=== PATIENT | female | born 1960 | race Caucasian/White ===

== ENCOUNTER 2016-07-01 03:09 | Inpatient (IN) | payer MEDICARE, OTHER ==
[~2016-07-01] VITALS: Ht 177.8 cm; Wt 269.9 kg
[~2016-07-01 03:09] MED LIST: BACLOFEN20 MG PO; BACTRIM DS1 TAB PO; CIPRO500 MG PO; CLEOCIN HCL300 MG PO; CLINDAMYCIN HC300 MG PO; COL250 PO; COLACE100 MG PO; DIF100 PO; FLONS; LAC PO; LANTUS SOLOS100 U/M1 SC; LASIX40 MG PO; LEV500PM IV; LEVAQUIN750 MG PO; LEVEMIR100 U/M1 SQ; MAC100 PO; METOCLOPRAMIDE10 MG PO; MOTRIN800 MG PO; MSC30 PO; NAPROXEN DELAY500 M1 PO; NORCO1 TA1 PO; NORCO1 TA2 PO; NOVI SC; OXYC PO; PRAVACHOL20 MG PO; PROVENTIL0.09 MG/A1; PROVENTIL0.09 MG/A1 INH; ROXICET1 TA1 PO; SOMA350 MG PO; TOPROL XL25 MG PO; TRAMADOL HCL50 MG PO; VASOTEC20 MG PO; XANAX0.5 MG PO; ZESTRIL20 MG PO; ZOCOR40 MG PO; [UNRECOGNIZED DRUG - OTHER] EXT
[2016-07-01 03:46] LABS: BASOPHIL % 1.4 % (0-2); PLATELET COUNT 278 x10^3mcL (130-400)
[2016-07-01 03:48] LABS: RED CELL DISTRIBUTION WIDTH 14.6 % (11.5-14.5)
[2016-07-01 04:01] LABS: CK-MB < 0.5 ng/mL (0-3.6); CREATINE KINASE 24 U/L (26-192)
[2016-07-01] MEDS ORDERED: TOPROL XL25 MG PO (04:04)
[2016-07-01] MEDS ORDERED: ZESTRIL20 MG PO (04:04)
[2016-07-01] MEDS ORDERED: LASIX40 MG PO (04:04)
[2016-07-01] MEDS ORDERED: PRAVACHOL20 MG PO (04:04)
[2016-07-01] MEDS ORDERED: POTASSIUM CHLO20 ME1 PO (04:05)
[2016-07-01] MEDS ORDERED: NAPROXEN500 MG PO (04:05)
[2016-07-01] MEDS ORDERED: TRAMADOL HCL50 MG PO (04:06)
[2016-07-01] MEDS ORDERED: TRAZODONE50 M1 PO (04:07)
[2016-07-01] MEDS ORDERED: BACLOFEN20 MG PO (04:07)
[2016-07-01] MEDS ORDERED: FLOVENT DI50 MCG/Ac1 IH (04:07)
[2016-07-01] MEDS ORDERED: LANTUS SOLOS100 U/M1 SQ (04:08)
[2016-07-01] MEDS ORDERED: NOVOLOG100 U/ML SC (04:08)
[2016-07-01] MEDS ORDERED: ALBUTEROL0.63 MG/3 NEB (04:08)
[2016-07-01 04:12] LABS: CALCIUM 8.5 mg/dL (8.5-10.1); CARBON DIOXIDE 27.3 mmol/L (21-32); CREATININE SERUM 1.4 mg/dL (0.6-1.0); POTASSIUM SERUM 4.1 mmol/L (3.5-5.1)
[2016-07-01 04:17] LABS: BILIRUBIN TOTAL 1.2 mg/dL (0.20-1.00); TOTAL PROTEIN, SERUM 7.8 g/dL (6.4-8.2)
[2016-07-01 04:19] LABS: ALBUMIN 2.3 g/dL (3.4-5.0)
[2016-07-01 06:03] LABS: CHOLESTEROL/HDL RATIO 3.2
[2016-07-01 06:07] LABS: FREE T4 1.4 ng/dL (0.76-1.46); FREE THYROXINE INDEX 2.5 ug/dL (1.4-4.5); T4(THYROXINE) 7.3 ug/dL (4.7-13.3)
[2016-07-01 06:09] LABS: T3 TOTAL 0.82 ng/mL
[2016-07-01 09:00] VITALS: BP 118/49
[2016-07-01 09:49] VITALS: BP 118/49
[2016-07-01 09:52] VITALS: BP 118/49
[2016-07-01 13:27] VITALS: BP 106/43
[2016-07-01 14:25] LABS: UA SPECIFIC GRAVITY >=1.030 (1.005-1.035); microscopic required? YES; urine erythrocyte TRACE (NEGATIVE)
[2016-07-01 14:40] LABS: AMPHETAMINE QUAL UR NONE DETECTED (NEG <=1000)
[2016-07-01 16:40] VITALS: BP 104/48
[2016-07-01 22:16] VITALS: BP 95/48
[2016-07-02 06:13] VITALS: BP 105/44
[2016-07-02 08:40] VITALS: BP 101/36
[2016-07-02 12:52] VITALS: BP 111/35
[2016-07-02 15:20] LABS: BASOPHIL % 0.3 % (0-2); PLATELET COUNT 230 x10^3mcL (130-400)
[2016-07-02 15:25] LABS: RED CELL DISTRIBUTION WIDTH 15.3 % (11.5-14.5)
[2016-07-02 15:33] LABS: CALCIUM 8.4 mg/dL (8.5-10.1); CARBON DIOXIDE 32.1 mmol/L (21-32); CREATININE SERUM 1.4 mg/dL (0.6-1.0); MAGNESIUM 1.8 mg/dL (1.8-2.4); PHOSPHOROUS 4.5 mg/dL (2.5-4.9); POTASSIUM SERUM 5.3 mmol/L (3.5-5.1)
[2016-07-02 16:58] VITALS: BP 111/63
[2016-07-02 20:49] VITALS: BP 101/51
[2016-07-03 05:47] VITALS: BP 120/49
[2016-07-03 06:07] LABS: BASOPHIL % 0.6 % (0-2); PLATELET COUNT 238 x10^3mcL (130-400)
[2016-07-03 06:17] LABS: CALCIUM 8.3 mg/dL (8.5-10.1); CARBON DIOXIDE 30.8 mmol/L (21-32); CREATININE SERUM 1.4 mg/dL (0.6-1.0); MAGNESIUM 1.8 mg/dL (1.8-2.4); PHOSPHOROUS 4.1 mg/dL (2.5-4.9); POTASSIUM SERUM 4.5 mmol/L (3.5-5.1)
[2016-07-03 07:03] LABS: RED CELL DISTRIBUTION WIDTH 15.2 % (11.5-14.5)
[2016-07-03 09:40] VITALS: BP 101/67
[2016-07-03 13:22] VITALS: BP 110/74
[2016-07-03 18:31] VITALS: BP 131/63
[2016-07-03 22:12] VITALS: BP 148/64
[2016-07-04 06:18] VITALS: BP 147/57
[2016-07-04 06:49] LABS: BASOPHIL % 0.6 % (0-2); PLATELET COUNT 245 x10^3mcL (130-400)
[2016-07-04 07:06] LABS: RED CELL DISTRIBUTION WIDTH 15.1 % (11.5-14.5)
[2016-07-04 07:09] LABS: CALCIUM 8.5 mg/dL (8.5-10.1); CREATININE SERUM 1.3 mg/dL (0.6-1.0); MAGNESIUM 1.9 mg/dL (1.8-2.4); PHOSPHOROUS 3.4 mg/dL (2.5-4.9); POTASSIUM SERUM 4.2 mmol/L (3.5-5.1)
[2016-07-04 18:08] VITALS: BP 149/60
[2016-07-04 22:20] VITALS: BP 135/68
[2016-07-05 06:16] VITALS: BP 113/68
[2016-07-05 06:21] LABS: BASOPHIL % 0.3 % (0-2); PLATELET COUNT 258 x10^3mcL (130-400)
[2016-07-05 06:30] LABS: RED CELL DISTRIBUTION WIDTH 14.9 % (11.5-14.5)
[2016-07-05 06:54] LABS: CALCIUM 9.1 mg/dL (8.5-10.1); CARBON DIOXIDE 31.8 mmol/L (21-32); CREATININE SERUM 1.1 mg/dL (0.6-1.0); POTASSIUM SERUM 4.1 mmol/L (3.5-5.1)
[2016-07-05 10:42] VITALS: BP 146/54
[2016-07-05 13:24] VITALS: BP 146/54
[2016-07-05 18:24] VITALS: BP 126/70
[2016-07-05 21:23] VITALS: BP 151/81
[2016-07-06 03:33] VITALS: BP 152/68
[2016-07-06 06:06] LABS: BASOPHIL % 0.5 % (0-2); PLATELET COUNT 243 x10^3mcL (130-400)
[2016-07-06 06:36] LABS: CALCIUM 9.2 mg/dL (8.5-10.1); CARBON DIOXIDE 33.8 mmol/L (21-32); CREATININE SERUM 1.2 mg/dL (0.6-1.0); MAGNESIUM 1.9 mg/dL (1.8-2.4); PHOSPHOROUS 3.6 mg/dL (2.5-4.9); POTASSIUM SERUM 4.3 mmol/L (3.5-5.1)
[2016-07-06 06:47] LABS: RED CELL DISTRIBUTION WIDTH 15.1 % (11.5-14.5)
[2016-07-06 08:44] VITALS: BP 110/57
[2016-07-06 13:06] VITALS: BP 157/69
[2016-07-06 16:38] VITALS: BP 166/77
[2016-07-06 22:22] VITALS: BP 157/64
[2016-07-07 06:17] LABS: BASOPHIL % 0.4 % (0-2); PLATELET COUNT 267 x10^3mcL (130-400)
[2016-07-07 06:31] LABS: CALCIUM 9.3 mg/dL (8.5-10.1); CARBON DIOXIDE 37.6 mmol/L (21-32); CREATININE SERUM 1.1 mg/dL (0.6-1.0); PHOSPHOROUS 3.6 mg/dL (2.5-4.9); POTASSIUM SERUM 4.2 mmol/L (3.5-5.1)
[2016-07-07 06:35] VITALS: BP 148/77
[2016-07-07 06:47] LABS: RED CELL DISTRIBUTION WIDTH 15.2 % (11.5-14.5)
[2016-07-07 10:00] VITALS: BP 151/63
[2016-07-07 19:00] VITALS: BP 150/63
[2016-07-07 21:35] VITALS: BP 147/64
[2016-07-08 05:54] VITALS: BP 123/42
[2016-07-08 10:57] VITALS: BP 106/43
[2016-07-08 14:36] VITALS: BP 155/67
[2016-07-08 16:18] VITALS: Ht 177.8 cm; Wt 269.9 kg
[2016-07-08 18:22] VITALS: BP 149/51
[2016-07-08 22:17] VITALS: BP 136/55
[2016-07-09 06:24] VITALS: BP 109/55
[2016-07-09 09:47] VITALS: BP 102/39
[2016-07-09 15:50] VITALS: BP 102/39
[2016-07-09] MEDS ORDERED: MYCP TOP (16:33)
[2016-07-09] MEDS ORDERED: VITC PO (16:34)
[2016-07-09] MEDS ORDERED: THERA TABS1 TAB PO (16:35)
[2016-07-09] MEDS ORDERED: HUMULIN R100 U/1 M1 SC (16:35)
[2016-07-09] MEDS ORDERED: LAC PO (16:37)
[2016-07-09] MEDS ORDERED: ARTOS OD (16:38)
[2016-07-09] MEDS ORDERED: PROT40I IV (16:38)
[2016-07-09] MEDS ORDERED: COL100 PO (16:38)
[2016-07-09] MEDS ORDERED: NOVAPLUS F0.05 MG/Ac (16:39)
[2016-07-09] MEDS ORDERED: DEXPF IV (16:39)
[2016-07-09] MEDS ORDERED: XAN25 PO (16:40)
[2016-07-09] MEDS ORDERED: BG FS (16:40)
[2016-07-09] MEDS ORDERED: ECO81 PO (16:42)
[2016-07-09] MEDS ORDERED: FERG PO (16:48)
[2016-07-09] MEDS ORDERED: HEP5I SC (16:48)
[2016-07-09] MEDS ORDERED: BACDS PO (16:50)
[2016-07-09] MEDS ORDERED: CLA10 PO (16:51)
[2016-07-09] MEDS ORDERED: ROC1PM IV (16:52)
[2016-07-09] MEDS ORDERED: IPRATROPIUM BROM3 M2 HHN ×2 (16:55)
== END 2016-07-09 17:44 | DRG 189 ==
LOC: ED 03:09 → MU 05:17 → DU 05:17 → MU 07-06 17:10
PROVIDERS: Emergency Medicine; Family Medicine; ADMIT Family Medicine
DX: J96.00 Acute respiratory failure, unspecified whether with hypoxia or hypercapnia (principal); N17.0 Acute kidney failure with tubular necrosis; E43 Unspecified severe protein-calorie malnutrition; E66.2 Morbid (severe) obesity with alveolar hypoventilation; Z68.45 Body mass index [BMI] 70 or greater, adult; K61.1 Rectal abscess; N39.0 Urinary tract infection, site not specified; B37.89 Other sites of candidiasis; D68.69 Other thrombophilia; I42.9 Cardiomyopathy, unspecified; L89.302 Pressure ulcer of unspecified buttock, stage 2; J45.909 Unspecified asthma, uncomplicated; G47.30 Sleep apnea, unspecified; E11.65 Type 2 diabetes mellitus with hyperglycemia; E11.51 Type 2 diabetes mellitus with diabetic peripheral angiopathy without gangrene; E66.01 Morbid (severe) obesity due to excess calories; I34.0 Nonrheumatic mitral (valve) insufficiency; I10 Essential (primary) hypertension; D64.9 Anemia, unspecified; Z74.01 Bed confinement status; Z79.4 Long term (current) use of insulin; Z22.322 Carrier or suspected carrier of Methicillin resistant Staphylococcus aureus
CPT/HCPCS: 36600; 80307; 82962; 83880; 84439; 97110-GP; 97530-GP; C9113; J0696; J1200; J1644; J1815; J1940; J1956; J2060; J2270; J2405; J2543; J3490; J7030; J7613; J7620; J7633; J7644; Q0092

== ENCOUNTER 2016-09-18 04:54 | Inpatient (IN) | payer MEDICARE, OTHER ==
[~2016-09-18] VITALS: Ht 177.8 cm; Wt 288.4 kg
[~2016-09-18 04:54] MED LIST changes: +ALBUTEROL0.63 MG/3 NEB; +ARTOS OD; +BACDS PO; +BG FS; +CLA10 PO; +COL100 PO; +DEXPF IV; +ECO81 PO; +FERG PO; +FLOVENT DI50 MCG/Ac1 IH; +HEP5I SC; +HUMULIN R100 U/1 M1 SC; +IPRATROPIUM BROM3 M2 HHN; +LANTUS SOLOS100 U/M1 SQ; +MYCP TOP; +NAPROXEN500 MG PO; +NOVAPLUS F0.05 MG/Ac; +NOVOLOG100 U/ML SC; +POTASSIUM CHLO20 ME1 PO; +PROT40I IV; +ROC1PM IV; +THERA TABS1 TAB PO; +TRAZODONE50 M1 PO; +VITC PO; +XAN25 PO
--- NOTE | 2016-09-18 05:00 | NUR ---
RECEIVED A 55 Y/O F BIB [facility] FOR GENERALIZED ILLNESS, FEVER, CHILLS AND NAUSEA. PATIENT REPORTS THAT SHE HAS BEEN FEELING SICK SINCE AUGUST. PATIENT WAS DIAGNOSED EARLIER IN THE YEAR WITH PNEUMONIA. PT PLACED IN CM, PULSE OX AND BP CUFF. PT HAS NON PRODUCTIVE COUGH. PER PATIENT " LAST TIME I FELT LIKE THIS, I WAS SEPTIC." PT REPORTS PAIN IN HER SHOULDERS, BACK AND NECK. PATIENT SKIN IS WARM TO TOUCH. PT PLACED IN 2 LITERS OXYGEN VIA NC. PENDING MSE. WILL CONTINUE TO MONITOR FOR SAFETY
--- NOTE | 2016-09-18 05:43 | NUR ---
LAB AND EKG AT THE BEDSIDE
[2016-09-18 06:10] LABS: CALCIUM 8.8 mg/dL (8.5-10.1); CARBON DIOXIDE 29.2 mmol/L (21-32); CREATININE SERUM 1.4 mg/dL (0.6-1.0); POTASSIUM SERUM 4.7 mmol/L (3.5-5.1)
[2016-09-18 06:14] LABS: BILIRUBIN TOTAL 0.64 mg/dL (0.20-1.00)
[2016-09-18 06:18] LABS: PLATELET COUNT 200 x10^3mcL (130-400); RED CELL DISTRIBUTION WIDTH 13.6 % (11.5-14.5)
[2016-09-18 06:19] LABS: BASOPHIL % 0 % (0-2)
[2016-09-18 06:26] LABS: CK-MB < 0.5 ng/mL (0-3.6); CREATINE KINASE 16 U/L (26-192)
--- NOTE | 2016-09-18 06:28 | NUR ---
PT NOTIFIED THAT SHE STILL HAS A HIGH TEMP. OFFERED COOLING MEASURES, PT REFUSED. WILL CONTINUE TO MONITOR FOR SAFETY
--- NOTE | 2016-09-18 07:07 | NUR ---
RECEIVED REPORT FROM JOSE ISSUE CLERK KAILASH
--- NOTE | 2016-09-18 07:07 | NUR ---
REPORT GIVEN TO ALEX LINDER
[2016-09-18 07:09] LABS: microscopic required? YES; urine erythrocyte 1+ (NEGATIVE)
--- NOTE | 2016-09-18 07:11 | NUR ---
DR AMBROSE AT BEDSIDE FOR EVAL
--- NOTE | 2016-09-18 08:49 | NUR ---
ATTEMPTED TO GIVE REPORT TO JACKY. SHE SAID SHE IS EATING BREAKFAST AND WILL CALL ME BACK IN 10 MIN
--- NOTE | 2016-09-18 09:20 | NUR ---
REPORT GIVEN TO JACKY LINDER
--- NOTE | 2016-09-18 09:22 | NUR ---
NOT ABLE TO TRANSFER PATIENT DUE TO WAITING ON BERIATRIC BED
--- NOTE | 2016-09-18 10:25 | NUR ---
patient sleeping at this time. awaiting bed to be delivered. stable vitals and will continue to monitor
[2016-09-18 11:14] LABS: AMPHETAMINE QUAL UR NONE DETECTED (NEG <=1000)
[2016-09-18 11:21] LABS: BILIRUBIN DIRECT 0.21 mg/dL (0.0-0.2); BILIRUBIN TOTAL 0.62 mg/dL (0.20-1.00); MAGNESIUM 1.5 mg/dL (1.8-2.4); PHOSPHOROUS 2.8 mg/dL (2.5-4.9); TOTAL PROTEIN, SERUM 7.9 g/dL (6.4-8.2)
[2016-09-18 11:22] LABS: CHOLESTEROL/HDL RATIO 2.5
[2016-09-18 11:35] LABS: FREE T4 1.16 ng/dL (0.76-1.46); T4(THYROXINE) 8.3 ug/dL (4.7-13.3)
--- NOTE | 2016-09-18 11:36 | NUR ---
CALLED TELE FLOOR. BED STILL NOT DELIVERED. PT AWARE AND VERBALIZES UNDERSTANDING. STABLE VITALS AND WILL CONTINUE TO MONITOR
[2016-09-18 11:46] LABS: T3 TOTAL 0.87 ng/mL
--- NOTE | 2016-09-18 12:35 | NUR ---
BERIATRIC BED HERE AND IS BEING SET UP IN . WILL TAKE PT UPSTAIRS
[2016-09-18 13:30] VITALS: BP 85/38
[2016-09-18 13:35] VITALS: BP 85/38
--- NOTE | 2016-09-18 13:57 | NUR ---
RECEIVED PATIENT FROM ED VIA GUERNEY, PATIENT TRANSFERED TO BARIATRIC BED VIA NADJA LIFT, PATIENT ALERT AND ORIENTED, TELE # 17 ST, PATIENT ON 2L NC, SANTANA CATH DRAINING YELLOW URINE TO GRAVITY, C/O PAIN TO BACK AND EXTREMITIES WILL MEDICATE ORDERED, IV ACCESS TO LEFT WRIST WNL, PHYSICIAN NOTIFIED OF SEPSIS PROTOCOL, ORIENTED PATIENT TO ROOM AND SURROUNDINGS, BED IN LOW POSITION, BED RAILS UP X 2, CALL LIGHT WITHIN REACH, WILL ENDORSE CARE TO PRIMARY NURSE JACKY LINDER
--- NOTE | 2016-09-18 14:00 | NUR ---
PT RESTING IN BED COMFORTYABLY,SLEEPING. DENIES PAIN THIS TIME. WILL MONITOR.
--- NOTE | 2016-09-18 14:30 | NUR ---
AWARE ABOUT BP 85/38 WITH MAP 56. ALSO INFORMED HIM ABOUT MG=1.5 ABD A1C=6.7,FHORXR=397. NO NEW ORDER RECEIVED YET.
--- NOTE | 2016-09-18 17:10 | NUR ---
CALLED AND INFORMED ABOUT BLOOD CULTURE RESULT. NO NEW ORDER RECEIVED.
--- NOTE | 2016-09-18 17:20 | NUR ---
HEPARIN DRIP STARTED PER ORDER 1800 UNIT/HR AND LOADING DOSE 11413. VERIFIED THE LOADING DOSE WITH PHARMACY, AND CHARGE NURSE BEFORE START.PTT ORDERED FOR 0.
[2016-09-18 18:00] VITALS: BP 89/36
--- NOTE | 2016-09-18 18:15 | NUR ---
BOLUS STARTED FOR BP 89/39 WITH MAP 63. 15 MIN AFTER BOLUS RECHECKED THE BP 119/39 WITH MAP 71.PT IS STABLE. WILL MONITOR.
[2016-09-18 18:27] VITALS: BP 119/39
[2016-09-18 19:00] VITALS: BP 136/47
--- NOTE | 2016-09-18 19:00 | NUR ---
BOLUS IVF NS STILL INFUSING. RECHECKED BP 136/47 WITH MAP 83. PT IS STABLE. EDUCATED PT NEED FOR SUPTUM C/S AND CUP PROVIDED. GAVE REPORT TO NEXT SHIFT NURSE.
--- NOTE | 2016-09-18 19:30 | NUR ---
PT IS A/O X4, VERBAL RESPONSIVE, LUNG SOUND CONGEST ELDON UPPER AND DIM ELDON BASE PT IS ON 2L/MIN O2 VIA NC. PO2 95%, PT IS ON TELE 17, NSR, HR 92, DENY ANY CHEST PAIN OR DISCOMFORT, BOWEL SOUND PRESENT ALL 4 QUADRANTS, NO DISTENTION. PEDAL PULSE PRESENT BOTH FEET, NON PITTING EDEMA BLE. FOELY CATH IS IN PLACE, IV AT LEFT FA, PT CONTINUE ON HEPRIN DRIP AT 1800 U/HR. IV SIDE DRESSING INTACT, NO INFILTRATION. PT HAD WOUND AT ELDON AXILLA DIANE AND COCCYX IS COVERD WITH DRESSING. ALL ADLS ASSIST, ALL NEED MET, CALL LIGHT IN REACH, WILL CONTINUE TO MONITOR.
--- NOTE | 2016-09-18 20:18 | NUR ---
SPUTUM CULUTURE OBTAIN AND SENT TO LAB.
[2016-09-18 20:55] VITALS: BP 124/103
[2016-09-19] VITALS (8 sets, daily range): BP systolic 90–127; BP diastolic 30–99
--- NOTE | 2016-09-19 01:01 | NUR ---
PTT IS 91.1.HOLD INFUSION FOR 1 HOUR AND WILL RESUME THE HEP DRIP AT 2 AM AND REDUCE TO 1000 U/HR. AND NEXT PTT WILL BE AT 6 AM.
--- NOTE | 2016-09-19 02:05 | NUR ---
RESUME THE HEPARIN DRIP AND DECREASE HEP DRIP TO 1000 U/HR. NEXT PTT 0600
--- NOTE | 2016-09-19 06:01 | NUR ---
PT IS AWAKE, VERBAL REPSONSIVE, SWITCH BIPAP TO NASAL CANNULA O2 2L/MIN. PT HAS NO RESPIRATORY DISTRESS, C/O HEADACHE 5/10, NORCO IS GIVEN, PT REFUSED TO CHANGE AT THIS TIME, IV AT RIGHT FA, AND LEFT WRIST IN PATENT AND DRESSING INTACT. ALL NEED MET, CALL LIGHT IN REACH, WILL CONTINUE TO MONITOR.
--- NOTE | 2016-09-19 06:06 | NUR ---
PT HAS TEMP 99.5, BUT PT REFUSED TO USE COOLING MEASURE AT THIS TIME, REMOVED THE BLANKET. WILL CONTINUE TO MONITOR THE PT.
[2016-09-19 06:20] LABS: PLATELET COUNT 180 x10^3mcL (130-400); RED CELL DISTRIBUTION WIDTH 14.3 % (11.5-14.5)
[2016-09-19 06:30] LABS: BILIRUBIN TOTAL 1.2 mg/dL (0.20-1.00); CALCIUM 8.3 mg/dL (8.5-10.1); CARBON DIOXIDE 21.5 mmol/L (21-32); CREATININE SERUM 2.2 mg/dL (0.6-1.0); POTASSIUM SERUM 4.8 mmol/L (3.5-5.1); TOTAL PROTEIN, SERUM 6.3 g/dL (6.4-8.2)
[2016-09-19 06:36] LABS: ALBUMIN 2.3 g/dL (3.4-5.0)
--- NOTE | 2016-09-19 06:47 | NUR ---
PTT 41.2, BOLUS HEPARIN 33758 U, AND INCREAES DRIP RATE TO 1500 U/HR. NEXT PTT AT 1100
[2016-09-19 06:48] LABS: BASOPHIL % 0 % (0-2)
--- NOTE | 2016-09-19 07:25 | NUR ---
RECEIVED PATIENT AWAKE/ALERT IN BED, NO COMPLAINTS, ASKING FOR ICE CHIPS. INFORM PATIENT DOCTOR ORDER LUNG SCAN REQUIRED NPO. POC UPDATED. CALL LIGHT WITHIN REACH.
--- NOTE | 2016-09-19 09:43 | NUR ---
PATIENT RESTING IN BED NO COMPLAINTS, ALL DUE MEDS GIVEN, HEPARIN GTTS @ 1500 UNITS/HR TO RFA, LAVAQUIN IVPB GIVEN. DR PINK SEEN APTIENT AT THIS TIME, INFORM RN WILL INCREASE IVF NS TO 250ML/HR; MONITOR EDEMA.
--- NOTE | 2016-09-19 11:00 | NUR ---
MEDICATED FOR C/O NAUSEA WITH ZOFRAN 4MG IVP, NEEDS ANTICIPATED. STUDENT NURSE DOING ACCU-CHECK ON PATIENT. CALL LIGHT WITHIN REACH.
--- NOTE | 2016-09-19 11:22 | NUR ---
PAGE DR. HARDY FOR PATIENT REQUEST FOR GAS PAIN, BS 176 COVER 3 UNITS HUMULIN SQ BY STUDENT NURSE WITH INSTRUCTOR.
--- NOTE | 2016-09-19 11:50 | NUR ---
PATIENT LAYING IN BED TECH AT BEDSIDE DOING ULTRASOUND TO LEGS, MYLICON 80MG PO GIVEN FOR GAS PAIN, REPLACE NEW HEPARIN BAG CONTINUOUS AT 1500 UNITS/HR; REPOSITIONED UP IN BED WITH MAX 4 STAFFS HELPING. CALL LIGHT WITHIN REACH.
--- NOTE | 2016-09-19 12:30 | NUR ---
PATIENT LAYING IN BED NO ACUTE DISTRESS NOTED, TECH AT BEDSIDE EXPLAINED TO PATIENT WILL DO LUNG SCAN.
--- NOTE | 2016-09-19 12:54 | NUR ---
LAB CALL FOR PTT 60.8 PER HEPARIN PROTOCOL NO CHANGE; ORDER NEXT PTT @ 1655.
--- NOTE | 2016-09-19 14:03 | NUR ---
PATIENT LAYING IN BED C/O GAS PAIN 10/20. NORCO 1 TAB PO GIVEN PER PATIENT REQUEST. PATIENT ALREADY HAVE HER MORNING DOSE OF PRILOSEC AND MYLCON FOR GAS INSTRUCT TO TURN FREQUENT TO FACILIATE BOWEL TO MOVE. LUNG SCAN STILL IN PROGRESS. PER SEPSIS PROTOCOL 5TH LITER OF 8 LITERS NS STARTED AT RATED 250ML/HR, CALL LIGHT WITHIN REACH.
--- NOTE | 2016-09-19 15:15 | NUR ---
PT NOTED WITH BP 90/32, MAP 53. RECHECKED BP 127/99 MAP 106. NOTED SANTANA WITH ONLY APPROXIMATELY 400ML CLARK URINE. DR BELL AND DR SANCHEZ MADE AWARE, WITH NEW ORDER FOR 1L NS BOLUS, AND THEN RESUME NS AT 250ML/HR. NS BOLUS STARTED ORDERED.
--- NOTE | 2016-09-19 16:30 | NUR ---
PATIENT AWAKE/ALERT IN BED HOB AT 45 DEGREE, AFTER 1 LITER BOLUS BP 95/35, MAP 55; ASYMPTOMATIC. MILD DISTRESS NOTED DUE TO ABDOMINAL CRAMPING OFF AND ON; CONTINUOUS IVF OF NS @ 250ML/HR ORDERED. BS 149 NO COVERAGE NEEDED.
--- NOTE | 2016-09-19 17:00 | NUR ---
DR. HARDY AT BEDSIDE INFORM PATIENT OF VQ SCAN LOW POSSIBILITY FOR PE, HEPARIN GTTS D/C ORDER. INFORM PATIENT HEPARIN GTTS IS STOP.
--- NOTE | 2016-09-19 18:20 | NUR ---
PATIENT EATING HER DINNER AT THIS TIME, HOT TEA GIVEN PER REQUEST, STATES LACTOSE INTOLERANCE CAN'T DRINK MILK. NEEDS ANTICIPATED.
--- NOTE | 2016-09-19 20:00 | NUR ---
PT ALERT AND AWAKE RESTING IN BED. VERBAL WITH CLEAR SPEECH. ON O2 2L VIA NC. DENIES ANY SOB. LUNGS DIMINISHED TO BILATERAL BASES. NO S/S OF RESPIRATORY DISTRESS NOTED. ON TELE 17, NSR. ABD SOFT AND ROUND. BOWEL SOUNDS PRESENT. PT C/O GAS PAIN. MYLICON 80 MG CHEWABLE TABLET GIVEN. SKIN WARM AND DRY. IVS TO LEFT WRIST AND RIGHT FA PATENT AND INTACT. IV NS INFUSING WELL TO LEFT WRIST. NO S/S OF INFECTION NOTED. NOTED WITH NONPITTING EDEMA TO BLE. PULSES PALPABLE. CALL LIGHT WITHIN REACH. WILL CONTINUE TO MONITOR.
--- NOTE | 2016-09-19 21:00 | NUR ---
NOTED PT'S BS 130. HAS LEVEMIR DOSE 30 UNITS HS. PT HAS POOR APPETITE. LEVEMIR DOSE NOT GIVEN. DR. BUTTS UPDATED AND AWARE.
--- NOTE | 2016-09-19 21:30 | NUR ---
UPDATED RE-PATIENT LATEST BP OF 102/76,ALSO INFOFORMED HIM RE-LOW URINE OUTPUT OF 100 CC IN THE SANTANA BAG AT THIS TIME,NO NEW ORDER.
--- NOTE | 2016-09-19 23:10 | NUR ---
BLADDER SCAN PERFORMED AND NOTED >20 ML VOLUME. F/C DRAINED 200 ML CLARK URINE AT THIS TIME. DR. VELA UPDATED AND AWARE.
--- NOTE | 2016-09-20 00:32 | NUR ---
PT RESTING IN BED. ALERT AND AWAKE WATCHING TV. BIPAP IN PLACE. NO S/S OF RESPIRATORY DISTRESS NOTED. BREATHING EQUAL AND UNLABORED. IV PATENT AND INFUSING WELL. NO S/S OF DISTRESS NOTED. CALL LIGHT WITHIN REACH. WILL CONTINUE TO MONITOR.
[2016-09-20 01:45] VITALS: BP 117/70
--- NOTE | 2016-09-20 02:04 | NUR ---
PT'S BP AFTER 7TH LITER BOLUS 117/70, MAP 85. BREATHING EQUAL AND UNLABORED. NO S/S OF RESPIRATORY DISTRESS NOTED. NO ADVERSE REACTIONS NOTED FROM IV CLEOCIN. IV PATENT AND INFUSING WELL. PT C/O FEELING ANXIOUS AND NOT ABLE TO SLEEP. DR. VELA UPDATED AND AWARE OF PT'S CURRENT BP AND ANXIETY. AWAITING NEW ORDERS.
--- NOTE | 2016-09-20 04:36 | NUR ---
PT RESTING IN BED WITH EYES CLOSED. BIPAP IN PLACE. NO S/S OF RESPIRATORY DISTRESS NOTED. IV PATENT AND INFUSING WELL. NO S/S OF DISTRESS OR DISCOMFORT NOTED. RESTING COMFORTABLY WITH RELAXED FACIAL FEATURES. CALL LIGHT WITHIN REACH. WILL CONTINUE TO MONITOR.
[2016-09-20 06:30] VITALS: BP 112/64
[2016-09-20 06:30] LABS: CALCIUM 7.9 mg/dL (8.5-10.1); CARBON DIOXIDE 24.5 mmol/L (21-32); CREATININE SERUM 3.1 mg/dL (0.6-1.0); POTASSIUM SERUM 4.5 mmol/L (3.5-5.1)
--- NOTE | 2016-09-20 06:30 | NUR ---
PT SLEPT WELL THROUGHOUT THE NIGHT. BREATHING EQUAL AND UNLABORED. NO S/S OF RESPIRATORY DISTRESS NOTED. IV PATENT AND INFUSING WELL. AFTER 8TH LITER BOLUS, VS: T 97.4, BP 112/64, MAP 80, P 75, RR 17. F/C DRAINED 250 ML TOTAL CLARK COLORED URINE. NO S/S OF DISTRESS NOTED. CALL LIGHT WITHIN REACH. WILL CONTINUE TO MONITOR.
--- NOTE | 2016-09-20 07:42 | NUR ---
PT RECEIVED DURING CHANGE OF SHIFT, A/OX4, TELE 17, NSR, DENIES CHEST PAIN, EDEMA NOTED BLE, PULSES PRESENT, LUNGS DIM IN BLL, DENIES SOB, BIPAP IN USED, BREATHING EVEN AND UNLABORED, BOWEL SOUNDS ACITVE, LBM 09/18/16, SANTANA IN PLACE, CLARK OUTPUT REPORTED, GENERALIZED WEAKNESS, REDNESS TO ELDON AXILLARY, BLE REDNESS, C/O ABD PAIN 09/19 MEDICATED PER EMAR, IV TO RFA AND LT WRIST, INFUSING NS AT 250ML/HR, CALL LIGHT WITHIN REACH, WILL CONTINUE TO MONITOR.
[2016-09-20 07:47] LABS: BASOPHIL % 0.1 % (0-2); PLATELET COUNT 157 x10^3mcL (130-400); RED CELL DISTRIBUTION WIDTH 14.5 % (11.5-14.5)
--- NOTE | 2016-09-20 09:05 | NUR ---
PT DENIES SOB, BIPAP IN USE, STATES PAIN MEDICATION EFFECTIVE, CALL LIGHT WITHIN REACH, MED EDUCATION GIVEN, WILL CONTINUE TO MONITOR.
--- NOTE | 2016-09-20 10:04 | NUR ---
DR. HARDY ASSESSED PT AT BEDSIDE, PT CURRENTLY HAS NO COMPLAINTS, CALL LIGHT WITHIN REACH, WILL CONTINUE TO MONITOR.
--- NOTE | 2016-09-20 11:27 | NUR ---
PT DENIES SOB, DENIES PAIN AT THIS TIME, BS 181 WILL COVER PER EMAR, CALL LIGHT WITHIN REACH, WILL CONTINUE TO MONITOR.
--- NOTE | 2016-09-20 12:21 | NUR ---
PT DENIES SOB, DENIES PAIN, MEDICATED FOR BS 181, CALL LIGHT WITHIN REACH, WILL CONTINUE TO MONITOR.
--- NOTE | 2016-09-20 13:57 | NUR ---
PT WATCHING TV, NO COMPLAINTS AT THIS TIME, CALL LIGHT WITHIN REACH, WILL CONTINUE TO MONITOR.
[2016-09-20 14:00] VITALS: BP 90/68
--- NOTE | 2016-09-20 14:13 | NUR ---
BOX TENDER AT BEDSIDE ASSISTING WITH ADL'S, NO COMPLAINTS AT THIS TIME, CALL LIGHT WITHIN REACH, WILL CONTINUE TO MONITOR.
--- NOTE | 2016-09-20 15:19 | NUR ---
PT DENIES SOB, C/O ABD PAIN 10/20, MEDICATED PER EMAR, CALL LIGHT WITHIN REACH, WILL CONTINUE TO MONITOR.
--- NOTE | 2016-09-20 16:43 | NUR ---
PT STATES PAIN MEDICATION EFFECTIVE, DENIES SOB, CALL LIGHT WITHIN REACH, WILL CONTINUE TO MONITOR.
--- NOTE | 2016-09-20 18:42 | NUR ---
PT'S WOUNDS CLEANED, INTERDRY APPLIED, PER CHARGE NURSE INTERDRY CANNOT BE CUT, CALL LIGHT WITHIN REACH, WILL ENDORSE PT TO NEXT SHIFT.
--- NOTE | 2016-09-20 19:36 | NUR ---
REC'D PT FROM DAY NURSE. AAOX4. LAYING IN BED. DENIES PAIN AT THIS TIME. TELE #17 NSR. PULSES ARE EVEN AND PALPABLE. LUNG SOUNDS ARE DIMINSHED BUT CTA. NO SOB. BIPAP NOTED. BREATH SOUNDS ARE EVEN AND UNLABORED. ABD IS SOFT AND ROUND. BLE EDEMA NOTED. SANTANA CATH NOTED. REDNESS TO ELDON AXILLARY AND BLE. IV INTACT AND PATENT INFUSING @ 250ML/HR. CALL LIGHT WITHIN REACH. WILL CONTINUE TO MONITOR.
[2016-09-20 20:23] VITALS: BP 120/72
--- NOTE | 2016-09-21 03:04 | NUR ---
PT IS ASLEEP AND RESTING WELL. BIPAP IN PLACE. NO SIGNIFICANT CHANGES NOTED. IV INTACT AND PATENT INFUSING WELL. WILL CONTINUE TO MONITOR.
[2016-09-21 06:06] LABS: PLATELET COUNT 143 x10^3mcL (130-400); RED CELL DISTRIBUTION WIDTH 14.4 % (11.5-14.5)
[2016-09-21 06:24] LABS: BILIRUBIN TOTAL 0.63 mg/dL (0.20-1.00); CALCIUM 7.8 mg/dL (8.5-10.1); CARBON DIOXIDE 21.5 mmol/L (21-32); CREATININE SERUM 3.1 mg/dL (0.6-1.0); POTASSIUM SERUM 4.7 mmol/L (3.5-5.1)
[2016-09-21 06:26] LABS: ALBUMIN 1.6 g/dL (3.4-5.0); TOTAL PROTEIN, SERUM 6.1 g/dL (6.4-8.2)
[2016-09-21 06:46] VITALS: BP 110/80
--- NOTE | 2016-09-21 06:51 | NUR ---
PT SLEPT THROUGHOUT THE SHIFT. NO SIGNS OF DISTRESS NOTED. ALL NEEDS MET AND ATTENDED TO. IV INTACT AND PATENT INFUSING @ 250ML/HR. WILL ENDORSE ALL CARE TO ONCOMING NURSE.
--- NOTE | 2016-09-21 07:10 | NUR ---
PT SEEN REST ON BED, ALERT, ORIENTED. PT BREATHING ON O2 2L VIA NC, EVEN, UNLABORED. SANTANA INPLACE, DRAINING FREELY VIA GRAVITY. IV SITE PATENT, INTACT. IVF INFUSING WELL.
[2016-09-21 07:23] LABS: BAND NEUTROPHIL 4 % (0-10); BASOPHIL 0 % (0-2); MONOCYTE 2 % (0-7)
[2016-09-21 07:24] LABS: SEGMENTED NEUTROPHILS 87 % (37-75)
[2016-09-21 07:27] LABS: rbc morphology (normal/abnorm) ABNORMAL (NORMAL)
[2016-09-21 08:00] VITALS: BP 121/68
--- NOTE | 2016-09-21 12:37 | NUR ---
P.T. NOTES RECEIVED PT EVAL ORDER AND PATIENT CHART REVIEWED. CLEARED PER RN FOR PT EVAL. ATTEMPTED TO WORK WITH PATIENT FOR PT, BUT PATIENT DECLINING PT EVAL. STATES THAT HER BOTTOM IS HURTING FROM THE PRESSURE SORES & IS CONCERNED IT WILL HURT MUCH MORE IF SHE TRIES TO MOVE. Pt EDU PROVIDED ON BENEFITS OF MOBILITY WELL POTENTIAL DETRIMENTS/COMPLICATIONS ASSOCIATED W/IMMOBILITY. CONTINUED TO DECLINE. WILL F/U TOMORROW FOR PT EVAL. PRIMARY RN NOTIFIED AND AWARE. 1 PVE
--- NOTE | 2016-09-21 14:02 | NUR ---
SANTANA CATH CARE GIVEN. CHANGED PT'S GOWN AND SHEET THAT SOILED BY DRAINAGE FROM LEFT THIGH.
--- NOTE | 2016-09-21 15:12 | NUR ---
Initial Nutrition Assessment Dx: Possible Sepsis PMHx: DM, HTN, Morbid Obesity, Asthma, BLE and Perirectal Cellulitis and Pannus Candidiasis PSHx: Debridement of perirectal abscess, perirectal necrotizing fascitis Labs: (09/21/16) B, BUN:53H, Cr:3.1H, Ca:7.8L, H/H:8.3/26L, WBC:12.7H, HgA1c:6.7 Meds: Cleocin, D10, Dulcolax, Fergon, Heparin, Humulin, Lactinex, Lactulose, Lasix, Levoquin, Levemir, Lopressor, Magnesium Sulfate, Senokot, Vit C, Theragran Diet:CCHO PO Intake: (09/18) D:100% , (09/19) L: 100% Ht: 70 in, 5'10 Wt: 590 lb, 268 kg BMI: 84.8 kg/m2 (Obesity Class III) IBW: 150lb, 68kg %IBW : 393% UBW: 550lb, 250kg Adj BW: 260lb, 118 kg. Wt hx: (07/01/16) 658 lb, 299kg. Age:55 Food Allergies: None, pt is lactose intolerant and drinks soy/almond milk. Skin: Marco 16, redness ELDON axillary and BLE up to waist, left side clear drainage oozing per RN note. Edema:BLE Redness and +1 Edema GI: Last BM 09/18/16 Pt admitted with sepsis BLE cellulitis with bacteremia r/o abscess and post acute respiratory failure 2/2 aspiration pnemonia, r/o PE, per H&P note. Per progress note 09/21: pt c/o headache, neck pain when coughing and pain in her legs legs. Pt also c/o bloating after meals. Abscess and NJ ruled out. During RD visit, pt was eating lunch and reported good appetite but c/o bloating after meals. Per pt, MD wants to keep pt another day to monitor. Problem with: N: None V: None D: None C: Yes, pt c/o constipation with last BM on 09/18. Abd soft and round, bowel sounds present. Problems with: Chewing: None Swallowing: None Current appetite: Good Recent wt change:-68 lb since last admit 07/01/16 . %wt change: -10% wt loss in the past 3 months Vitamin/Supplement use: Vit C, Vit D and Mulit-Vitamin Special diet at home: [facility] [place], [facility] Physical activity: bed bound due to morbid obesity. Education: Pt declined diabetic and wt loss nutrition education and has declined education from previous admits. Estimated Nutritional Needs Based on [place] body weight, 150 lb, 68 kg Energy: 6480-4370 kcal/d (30-35 kcal/kg for sepsis) Protein: 102-136 g/d (1.5-2.0g/kg) Fluid: 2380ml/d (1 ml/kcal) or per doctor Nutrition Diagnosis 1. Morbid obesity related to sedentary lifestyle as evidenced by BMI:84.8 kg/m2. 2. Altered nutrition labs related to elevated blood glucose 163 and HgA1c:6.7 3. Altered GI function related to possibly pain meds as evidenced by no BM x 3 per pt. Intervention 1. Recommend continue with current diet order ([facility] [place], 60g) 2. Recommend continue with current bowel regimen for constipation. 3. Consider outpatient DM diet class. Monitor/Evaluate Goal: Continued PO intake at least 75% of estimated needs Monitor: PO intake, Labs, GI function F/U in 3-5 days as Modeate risk (09/24-09/26)
--- NOTE | 2016-09-21 15:26 | NUR ---
1. Recommend continue with current diet order (CCHO, 60g) 2. Recommend continue with current bowel regimen for constipation. 3. Consider outpatient DM diet class.
--- NOTE | 2016-09-21 15:29 | NUR ---
MANUAL CHECK PT'S BP ON ROHINI AND RLA BP: 107/46, HR 84 BPM. USING VITAL MACHINE CHECKED PT'S BP 105/42 ON RLA, WILL CONTINUE TO MONITOR.
[2016-09-21 18:30] VITALS: BP 108/45
--- NOTE | 2016-09-21 19:36 | NUR ---
SHIFT REASEESMENT DONE.PATIENT ALERT AND ORIENTED.MAKE NEEDS KNOWN TO STAFF.O2 AT 2 LITERS,BIPAP AT NIGHT.GEN WEAKNESS,MOSTLY BEDBOUND.RFA IV SITE HEPLOCK,L WRIST IVF INFUSING.TELE 17 SR.L THIGH REPORT DRAINING,WATERY FROM PREVIOUS SHIFT.B AXILLARY WOUNDS AND REDNESS BLE/INTERDRY.PATIENT BLE EDEMA,PATIENT HAS HEPARIN SQ.NO SCD.SANTANA INTACT.CLARK URINE.CALL LIGHT IN REACH.PATIENT ON CONTACT ISOLATION,FULL CODE.
--- NOTE | 2016-09-21 19:36 | NUR ---
REPORT GIVEN TO RECEIVING NURSE. PT IS AWAKE, RESTING ON BED. NO COMPLAIN OF PAIN. PT BREATHING ON O2 2L VIA NC, NO DISTRESSED NOTED. SANTANA IN PLACE, DRAINING FREELY VIA GRAVITY. URINE COLOR YELLOW. IV SITE PATENT, INTACT. IVF INFUSING WELL.
[2016-09-21 22:19] VITALS: BP 100/50
--- NOTE | 2016-09-21 23:32 | NUR ---
PATIENT REMAINS A TOTAL CARE.BUT WILL HELP SIDE TO SIDE.NS AT 250 CC/ HOUR.IV SITE GOOD,L WRIST.ALSO HAS RFA HEPLOCK.PATIENT IS ON SPECIAL BED,GROSSLY OBESE.BOTH AXILLARY WOUND/REDNESS,INTERDRY.SANTANA CATH EMPTIED SEVERAL TIMES,LARGE OUTPUT,PATIENT BP REMAINS ON THE LOW SIDE.
--- NOTE | 2016-09-22 02:00 | NUR ---
PATIENT CHECKED AT INTERVALS.TOLERATING BIPAP WELL,NS AT 250 CC/ HOUR CONTINOUS.NO INCIDENT.BP 112/50,MANUAL CHECKED.
[2016-09-22 05:39] VITALS: BP 120/60
--- NOTE | 2016-09-22 05:44 | NUR ---
PATIENT CRYING SAYS PAIN ON HER R HIP,OFFERD TO BE CLEAN AND REPOSITIONED BUT DECLINE,SAYS SHE DO NOT WANT TO MOVE.MSO4 GIVEN IVP.
--- NOTE | 2016-09-22 05:46 | NUR ---
BP 120/60 WHEN MSO4 WAS GIVEN.WANTING PAIN SHOT AND GIVEN.
--- NOTE | 2016-09-22 05:49 | NUR ---
I AND O MEASURED AND RECORDED.NEW BAG NS AT 250 CC/HOUR.REMAINS A TOTAL CARE.WILL ENDORSE TO NEXT SHIFT.
--- NOTE | 2016-09-22 08:00 | NUR ---
RECEIVED PATIENT ALERT/ORIENTED X3. MORBID OBESITY. ON BIG BOY BED. TELE#17 = SR; HR = 82. BREATHING SOUND DIMINISHED ELDON BASES. OCCASIONAL PRODUCTIVE COUGH WITH SMALL AMOUNT YELLOWISH SPUTUM. O2 SAT 97% ON 2L VIA N/C. TOLERATED CCHO DIET. STATED NO BM X 4 DAYS. LACTULOSE PO GIVEN. SANTANA PATENT WITH YELLOW URINE OUTPUT. SKIN LESIOON TO ELDON AXILLI AND ELDON BUTTOCKS. IV H/L'D TO RFA AND IVF OF NS 250CC/HR INFUSING WELL TO L WRIST. BOTH IV SITES CLEAN. NO C/O PAIN NOW. CONTINUE MONITOR.
[2016-09-22 08:11] LABS: BASOPHIL % 0.1 % (0-2); PLATELET COUNT 144 x10^3mcL (130-400); RED CELL DISTRIBUTION WIDTH 14.5 % (11.5-14.5)
--- NOTE | 2016-09-22 08:40 | NUR ---
DR. BELL AND MEDICAL TEAM MADE MORNING ROUND. PLAN OF CARE DISCUSSED WITH APTIENT, INCLUDED WITH DEBRIDEMENT OF ULCER TODAY. PATIENT AGREED WITH PLAN OF CARE.
[2016-09-22 08:57] VITALS: BP 128/74
[2016-09-22 09:34] LABS: CALCIUM 8.1 mg/dL (8.5-10.1); CARBON DIOXIDE 22.3 mmol/L (21-32); CREATININE SERUM 2.1 mg/dL (0.6-1.0); POTASSIUM SERUM 4.9 mmol/L (3.5-5.1)
--- NOTE | 2016-09-22 14:00 | NUR ---
DEBRIDEMENT OF WOUND TO RT BUTTOCK DID BY DR. SANCHEZ AT BED SIDE. THERAHONEY CREAM APPLED AND BOARDED DRSG APPLIED. CHANGED DRSG TO 2ND WOUND TO RT BUTTOCK. THERAHSHYAM CREAM AMD BOARDED DRSG APPLIED PER ORDER OF DR. BELL AT BED SIDE.
--- NOTE | 2016-09-22 14:25 | NUR ---
C/O INCISIONAL PAIN AND LEGS PAIN. ON 08/20; MORPHINE 2MG IVP GIVEN. B/P = 128/62.
[2016-09-22 14:30] VITALS: BP 128/62
--- NOTE | 2016-09-22 14:30 | NUR ---
P.T. NOTES Pt WAS SEEN AWAKE & ALERT IN BARIATRIC BED, CONTACT ISOL PREC OBSERVED, SPEAKS [place], ORIENTED x3, DECLINED TO PARTICIPATE W/ P.T., STATES "I WILL NOT MOVE UNTIL I AM IN THIS CONDITION!", EASILY AGITATED, EXPLAINED BENEFITS OF THERAPY, RISKS OF BEING BED-BOUND; NURSE AWARE; CALL DECKER, PHONE, TABLE IN REACH; Pt STATES SHE LIVES AT HOME W/ MOTHER & DAUGHTER, BOTH ASSIST HER AT HOME, Pt WAS ABLE TO SIT SIDE OF BED W/ ASSIST, DOES NOT GET OOB, DOES NOT WALK; FOLLOW UP TOMORROW. PVE
[2016-09-22 18:02] VITALS: BP 120/60
--- NOTE | 2016-09-22 18:28 | NUR ---
RESTING IN BED. DENIED PAIN. FINISHED 100% OF DINNER. NO BM YET AFTER LACTULOSE 15ML PO GIVEN THIS AM. SANTANA CARE GIVEN. 4750 CC OF YELLOWISH CLEAR URINE COLLECTED. IVF OF NS DECREASED TO 100CC/HR PER ORDER. ENDORSED CARE TO NOC NURSE.
--- NOTE | 2016-09-22 19:50 | NUR ---
RECEIVED PATIENT IN BED AWAKE, ALERT AND ORIENTED WITH NO SIGN OF ACUTE DISTRESS .RESPIRATION EVEN AND NONLABOR,PT USES BIPAP AT NIGHTTIME. RT PROTOCOL. EDEMA NOTED TO BLE, PT ON HEPARIN SQ 5000 UNITS. TELE# 17,NSR ON MONITOR. SANTANA TO GRAVITY WITH YELLOW URINE OUTPUT. IV TO L WRIST INTACT AND INFUSING WELL TO LEFT WRIST. WILL CONTINUE TO MONITOR. CALL LIGHT WITHIN REACH.
--- NOTE | 2016-09-22 20:48 | NUR ---
C/O PAIN TO RT BUTTOCK MEIDCATED WITH MORPHINE 2MG IVP PRESCRIBED. WILL CONTINUE TO MONITOR.
[2016-09-22 22:28] VITALS: BP 120/53
--- NOTE | 2016-09-23 00:02 | NUR ---
STILL C/O GENERALIZED PAIN, MEDICATED WITH MORPHINE 2MG IVP PRESCRIBED. WILL CONTINUE TO MONITOR.
--- NOTE | 2016-09-23 00:58 | NUR ---
SLEEPING THIS TIME AFTER PAIN MEDS WAS GIVEN. ON BIPAP THIS TIME.
--- NOTE | 2016-09-23 05:02 | NUR ---
SLEPT FAIRLY, C/O GENERALIZED BODY PAIN X2 THE ENTIRE SHIFT AND MEDICATED PRESCRIBED. LEPT ON ISOLATION PRECAUTION. ALL NEEDS ATTENDED.
[2016-09-23 06:51] LABS: CALCIUM 8.4 mg/dL (8.5-10.1); CARBON DIOXIDE 23.3 mmol/L (21-32); CREATININE SERUM 1.7 mg/dL (0.6-1.0); MAGNESIUM 1.6 mg/dL (1.8-2.4); POTASSIUM SERUM 4.3 mmol/L (3.5-5.1)
[2016-09-23 06:54] LABS: BASOPHIL % 0.2 % (0-2); PLATELET COUNT 166 x10^3mcL (130-400); RED CELL DISTRIBUTION WIDTH 14.4 % (11.5-14.5)
--- NOTE | 2016-09-23 07:55 | NUR ---
A/O X4. CLEAR SPEECH. FOLLOW COMMANDS. ON TEL 17 HR 76. RADIAL AND PEDAL PULSES PALPABLE. SWOLLEN BUE AND BLE. <3 SECS CAP REFILL. ON RA SAT 95% CPAP AT NIGHT TIME OR NEEDED. BREATHING EVEN AND UNLABORED. DIMINISHED LUNG SOUNDS. NO NVD. VOIDIND ADEQUATELY. SANTANA INTACT. DRAINING YELLOW OUTPUT. HAS GENERALIZED WEAKNESS. NEEDS ASSIST WITH ALL ADLS. S/P DEBRIDEMENT ON RIGHT BUTTOCK. DRESSING CDI. REDNESS TO BLE, ABD FOLDS AND BREAST. DENIES PAIN. IV NATALIA INTACT ON RFA. NS INFUSING WELL AT 100 ML/HR. WILL CONTINUE TO MONITOR. CALL LIGHT WITHIN REACH.
[2016-09-23 09:34] VITALS: BP 120/62
--- NOTE | 2016-09-23 09:48 | NUR ---
COMPLAINS OF RIGHT LEG STINGING/SHARP PAIN 12/20. IV MORPHINE GIVEN. WILL CONTINUE TO MONITOR.
--- NOTE | 2016-09-23 11:20 | NUR ---
IV LEAKING. IV INSERTED TO LFA GAUGE 22. Pt TOLERATED WELL.
--- NOTE | 2016-09-23 12:49 | NUR ---
COMPLAINS OF SHARP/STINGING RIGHT LEG PAIN 10/10. IV MORPHINE GIVEN. WILL CONTINUE TO MONITOR.
[2016-09-23 13:30] VITALS: BP 150/58
--- NOTE | 2016-09-23 14:10 | NUR ---
FLEET ENEMA GIVEN. WOUND DRESSING DONE BY DR BELL AT RIGHT BUTTOCK. THERAHONEY AND OPTIFOAM APPLIED.
--- NOTE | 2016-09-23 14:40 | NUR ---
Pt HAD WATER BROWN STOOL. PER ORDER BY DR HARDY GIVE MG CITRATE 3-4HRS AFTER ENEMA WAS GIVEN. DULCOLAX WAS ALSO GIVEN AT THIS TIME. WILL CONTINUE TO MONITOR.
--- NOTE | 2016-09-23 15:09 | NUR ---
PT NOTES 6552 Patient refused PT eval d/t RLE pain debridement site. Patient reports that she has been non-ambulatory for last year, was able to sit at [facility] about 2 months ago, rolls indep with bed, and was receiving PT for BUE/LE ROM. Patient agreeable to f/u with PT tomorrow. Patient with 3 refusal already, if cont to refuse tomorrow with d/c PT. Nursing aware. Patient educated on benefits of mobility and consequences of immobility with good return understanding. PVE(1)
--- NOTE | 2016-09-23 18:09 | NUR ---
Pt COMPLAINING OF SHARP/STINGING RIGHT LEG PAIN 11/20. IV MORPHINE GIVEN.
[2016-09-23 18:26] VITALS: BP 140/50
--- NOTE | 2016-09-23 19:30 | NUR ---
SEEN ASLEEP USING BIPAP, NO RESP DISTRESS NOTED. NSR AT 92 ON TELE# 17. HOB ELEVATED AT 30DEG. ON BIG BOY BED. GEN BODY WEAKNESS WITH MORBID OBESITY. IVF NS TO RFA WITH NS INFUSING WELL AT 150ML/HR. SANTANA CATH TO GRAVITY DRAINING OUT YELLOW URINE COLORED. DRESSING TO RIGHT BUTTOCK CHANGED TODAY PER KAILASH CAM. REDNESS TO BLE NOTED. EDEMA TO BLE, WEAK PEDAL PULSES PALPABLE. ON HEPARIN SQ Q 8HRS FOR PROPHYLAXIS. CONTACT ISOLATION MAINTAINED. WILL CONTINUE TO MONITOR.
--- NOTE | 2016-09-23 20:46 | NUR ---
COMPLAINTS OF GENERALIZED BODY PAIN AND NAUSEA, MORPHINE IV AND ZOFRAN IV GIVEN. WILL CONTINUE TO MONITOR. REFUSED TO BE TURNED AND REPOSITIONED. REFUSED TO BE CLEANED OR CHECKED ON THE BOTTOM.
--- NOTE | 2016-09-23 21:30 | NUR ---
RESTING WITH EYES CLOSE ON BIPAP. NO ANY DISTRESS NOTED.
[2016-09-23 21:44] VITALS: BP 139/60
[2016-09-24 06:23] VITALS: BP 142/67
[2016-09-24 06:26] LABS: CALCIUM 8.5 mg/dL (8.5-10.1); CARBON DIOXIDE 26.8 mmol/L (21-32); CREATININE SERUM 1.6 mg/dL (0.6-1.0); PHOSPHOROUS 4.1 mg/dL (2.5-4.9); POTASSIUM SERUM 4.5 mmol/L (3.5-5.1)
--- NOTE | 2016-09-24 06:37 | NUR ---
HAD LARGE FORMED BM X1, DRESSING TO RIGHT BUTTOCK CHANGED, PERIAREA CLEANED, REPOSITIONED. MEDICATED WITH MORPHINE X2 THROUGHOUT SHIFT FOR GENERALIZED BODY PAIN. ALL DUE MEDS GIVEN. IVF NS CONTINUED TO LFA IV SITE. CONTACT ISOLATION MAINTAINED.
--- NOTE | 2016-09-24 07:34 | NUR ---
PT RECEIVED DURING CHANGE OF SHIFT, A/OX4, TELE 17, NSR, DENIES CHEST PAIN, PULSES PRESENT, BLE EDEMA, LUNGS CTA ON RA, USES BIPAP, DENIES SOB, BREATHING EVEN AND UNLABORED, PREVIOUS RN REPORTS BM DURING LAST SHIFT, SANTANA IN PLACE, YELLOW OUTPUT, GENERALIZED WEAKNESS, BARIATRIC BED, OBESE, DRESSING TO RT BUTTOCKS X2 CDI, ELDON AXILLARY ULCERS, REDNESS BLE, DENIES PAIN AT THIS TIME, IV TO RFA INFUSING NS AT 100ML/HR, CALL LIGHT WITHIN REACH, CURRENTLY CALM AND COOPERATIVE, WILL CONTINUE TO MONITOR.
--- NOTE | 2016-09-24 09:03 | NUR ---
DR. GORE AND RESIDENTS MAKING ROUNDS, PLAN OF CARE DISCUSSED.
[2016-09-24 09:08] VITALS: BP 140/60
--- NOTE | 2016-09-24 09:35 | NUR ---
PT'S MEDS GIVEN, DENIES SOB, DENIES PAIN, AXILLARY AREA CLEANED ELDON AND MEDICATION APPLIED, CALL LIGHT WITHIN REACH, WILL CONTINUE TO MONITOR.
--- NOTE | 2016-09-24 10:17 | NUR ---
PT DENIES SOB, DENIES PAIN, BREATHING EVEN AND UNLABORED, WILL CONTINUE TO MONITOR.
--- NOTE | 2016-09-24 10:53 | NUR ---
PT PRODUCED LOOSE BM, CLEANED BY PRIMARY RN AND SHIRT PRESSER PAT, DRESSING TO BUTTOCKS CHANGED.
--- NOTE | 2016-09-24 11:50 | NUR ---
IV LINES CHANGED, ANTIBITOTICS RUNNING, DENIES SOB, PT C/O PAIN 09/19 AND NAUSEA, WILL MEDICATE PER EMAR.
--- NOTE | 2016-09-24 12:23 | NUR ---
PT MEDICATED FOR PAIN AND NAUSEA, WILL REASSESS, DENIES SOB, CALL LIGHT WITHIN REACH, WILL CONTINUE TO MONITOR.
--- NOTE | 2016-09-24 13:14 | NUR ---
PT STATES MEDICATION EFFECTIVE, DENIES SOB, DENIES PAIN, DENIES NAUSEA, CALL LIGHT WITHIN REACH, WILL CONTINUE TO MONITOR.
--- NOTE | 2016-09-24 14:08 | NUR ---
PT DENIES SOB, DENIES PAIN, WATCHING TV, CALL LIGHT WITHIN REACH, WILL CONTINUE TO MONITOR.
[2016-09-24 14:35] VITALS: BP 122/80
--- NOTE | 2016-09-24 15:14 | NUR ---
PT DENIES SOB, DENIES PAIN, STATES SHE'S HAD BM AND NEEDS TO BE CHANGED, WILL FIND DENTAL INTERNSHIP TO ASSIST IN CLEANING PT, CALL LIGHT WITHIN REACH, WILL CONTINUE TO MONITOR.
--- NOTE | 2016-09-24 15:20 | NUR ---
PT Notes 1045 (PVE) Patient approached by PT for the fourth time, and cont to refuse to participate with therapy d/t pain and bad timing. Patient cont to be educated on benefit of mobility and consequences of immobility, but cont to refuse. Educated patient we will be discharging PT d/t multiple refusals, but will be glad to evaluate once patient agreeable to participate, and new order provided. Nursing notified/aware.
--- NOTE | 2016-09-24 15:35 | NUR ---
PT CLEANED, FORMED BM PRODUCED, CALL LIGHT WITHIN REACH, WILL CONTINUE TO MONITOR.
[2016-09-24 16:18] VITALS: BP 122/80
--- NOTE | 2016-09-24 16:29 | NUR ---
PT DENIES SOB, DENIES PAIN, BS 142 NO COVERAGE NEEDED, CALL LIGHT WITHIN REACH, WILL CONTINUE TO MONITOR.
--- NOTE | 2016-09-24 17:21 | NUR ---
PT DENIES SOB, DENIES PAIN, VERBAL TEACHING ON IRON SUPPLEMENT GIVEN, CALL LIGHT WITHIN REACH, WILL CONTINUE TO MONITOR.
--- NOTE | 2016-09-24 18:03 | NUR ---
PT CLEANED, LOOSE STOOL NOTED, EATING DINNER, PT CURRENTLY DENIES ALL COMPLAINTS, CALL LIGHT WITHIN REACH, WILL ENDORSE PT TO NEXT SHIFT.
--- NOTE | 2016-09-24 19:30 | NUR ---
RECEIVED PATIENT FROM THERESE SANTIZO. PATIENT QUIETLY RESTING IN BED AT THIS TIME. IVF INFUSING TO LFA AT 150ML/HR NS. NO INFILTRATION NOTED. TELE 17
[2016-09-24 19:50] VITALS: BP 110/72
--- NOTE | 2016-09-24 19:52 | NUR ---
PATIENT VERBALIZED WANTING TO HAVE BIPAP ON AT THIS TIME. STATES SHE IS FALLING ASLEEP AND WAKING UP GRASPING FOR AIR. CURRENTLY ON 2 LITERS NASAL CANNULA. REQUESTED RT LIU TO PLACE BIPAP ON PATIENT PER PATIENT'S REQUEST.
--- NOTE | 2016-09-24 22:00 | NUR ---
AXILLA AND ABD CLEANED AND DRYED. APPLIED NYSTATIN ORDERED AND PLACED INTERDRY TO AREAS. PATIENT TOLERATED WELL. ALL OTHER SCHEDULED MEDICATIONS ADMINISTERED. NO SWALLOWING DIFFICULTY. PATIENT CURRENTLY ON BIPAP AND TOLERATING WELL.
--- NOTE | 2016-09-25 04:10 | NUR ---
SAFETY ROUNDS MADE AND ATTEMPTED TO CHANGE PATIENT. PATIENT STILL SLEEPING AND DENIES HAVING A BOWEL MOVEMENT THROUGHTOUT THE NIGHT. ALL SAFETY MEASURES IN PLACE AND CALL LIGHT WITHIN REACH. CONTINUED ON BIPAD AT THIS TIME.
--- NOTE | 2016-09-25 05:15 | NUR ---
PATIENT C/O PAIN GENERALIZED BODY ACHES. ADMINISTERED PAIN MEDICATION PER PATIENT'S REQUEST OF PAIN 10/20.
[2016-09-25 05:23] VITALS: BP 120/57
--- NOTE | 2016-09-25 05:56 | NUR ---
SCHEDULED MEDICATIONS ADMINISTERED. PATIENT CONTINUED ON BIPAP AT THIS TIME. IVF STOPPED PER DR. LIVINGSTON'S ORDER FOR REASSESSMENT. ALL SAFETY MEASURES IN PLACE AND WILL ENDORSE CONTINUITY OF CARE TO AM KAILASH.
[2016-09-25 06:43] LABS: BASOPHIL % 0.3 % (0-2); PLATELET COUNT 238 x10^3mcL (130-400); RED CELL DISTRIBUTION WIDTH 14.4 % (11.5-14.5)
[2016-09-25 06:59] LABS: CALCIUM 8.7 mg/dL (8.5-10.1); CARBON DIOXIDE 26.6 mmol/L (21-32); CREATININE SERUM 1.4 mg/dL (0.6-1.0); POTASSIUM SERUM 4.5 mmol/L (3.5-5.1)
[2016-09-25 09:09] VITALS: BP 133/66
--- NOTE | 2016-09-25 09:15 | NUR ---
ALERT AND ORIENTED. TELE #17, NSR, HR 84. PULSES PRESENT, EDEMA NOTED BLE, CAP REFILL < 3. LUNG SOUNDS DIMINSHED BILATERALLY AND NON PRODUCTIVE COUGH, ON ROOM AIR AT THIS TIME. BOWEL SOUNDS PRESENT, LBM 09/24/16. SANTANA IN PLACE TO GRAVITY, DARK YELLOW URINE NOTED. BEDFAST BUT CAN MOVE EXTREMETIES, CAN PULL SELF UP IN BED, IN BARIATRIC BED . UNDER ARMS, ABD FOLD AND SKIN FOLDS ON BLE CLEANED, DRYED AND MYCOSTATIN AND INTERDRY IN PLACE. KENALOG PLACED ON UPPER THIGHS BILATERALLY. REDNESS NOTED ON UPPER THIGHS BILATERALLY, REDNESS ON UNDER ARMS AND ABD FOLD, DRY FLAKY SKIN TO BLE. IV LFA CLEAR AND INTACT, ANTIBIOTIC RUNNING. MORPHINE GIVEN FOR PAIN OF 8/10. TOLERATED MORNING MEDICATIONS WELL.
--- NOTE | 2016-09-25 12:40 | NUR ---
PATIENT YELLING OUT IN PAIN IMMEDIATELY AFTER STARTING IV ABX, IV STOPPED. ATTEMPTED TO FLUSH WITH NS, REPORTED PAIN AFTER FLUSHING 1 ML. SANTANA CLEANED WITH WIPES, PT TOLERATED WELL. REPORTS NO PAIN AT THIS TIME.
--- NOTE | 2016-09-25 15:52 | NUR ---
EARLIER IV D/C CATHETER INTACT. NEW IV SITE LFA, IV SITE CLEAR AND INTACT. LINEN CHANGE, LARGE BOWEL MOVEMENT CLEANED, DRESSING CHANGE COMPLETE, DRESSING CDI. SANTANA EMPTIED, 1350 ML. TOLERATED AFTERNOON MEDS WELL.
--- NOTE | 2016-09-25 18:16 | NUR ---
DR HASKINS IN TO SEE PATIENT.
--- NOTE | 2016-09-25 18:40 | NUR ---
TOLERATED MED WELL. IV ABX RUNNING. NO SIGN OF DISTRESS AT THIS TIME.
--- NOTE | 2016-09-25 19:53 | NUR ---
PT SEEN, RESTING IN THE BED, ALERT AND ORIENTED, DENIES HEADACHE OR DIZZINESS, BREATHING EVEN AND UNLABORED, NO SOB, LUNG SOUNDS DIMINISHED, ON O2 3L VIA NC WITH NO RESP DISTRESS NOTED, RT PROTOCOL, BIPAP AT NIGHT WITH SETTING 23/09 WITH FIO2:30%, ON AND OFF NON-PRODUCTIVE COUGH, PULSES PALPABLE, EDEMA NOTED TO BLE, SKIN FOLDS AND REDNESS TO GENERALIZED BODY, INTERDRY IN PLACE, ABD OBESE WITH ACTIVE BS, NO BM AT THIS TIME, LAST BM THIS MORNING, SANTANA VIA GRAVITY DRAINING YELLOW URINE, PT ON BIGBOY BED, DRESSING TO BUTTOCKS AND THIGH AREA, OPEN WOUND TO BOTH AXILLA, NO DISTRESS NOTED, WILL KEEP TO MONITOR.
[2016-09-25 22:17] VITALS: BP 130/70
--- NOTE | 2016-09-25 22:24 | NUR ---
PT HAD LOOSE STOOL, LINEN CHANGED, DRESSING CHANGED, OINTMENT APPLIED, C/O OF BODYACHES, MORPHINE 2MG AND ZOFRAN 4MG VIA IVP ADMINISTERED, SANTANA CARE GIVEN, RT WILL PLACE PT ON BIPAP.
--- NOTE | 2016-09-26 05:41 | NUR ---
PT ASLEEP BUT EASILY AROUSABLE, ON BIPAP WITH 14/7 WITH FIO2:30%, NO RESP DISTRESS OR SOB NOTED, MORNING BLOOD SUGAR-152 MG/DL WITH 3 UNITS RISS, PT DENIES HAVE BM AT THIS TIME, IVF INFUSING WELL, C/O GENERALIZED BODY PAIN, MORPHINE 2MG VIA IVP ADMINISTERED, NO DISTRESS NOTED, WILL KEEP TO MONITOR.
[2016-09-26 06:33] VITALS: BP 118/66
[2016-09-26 06:34] LABS: CALCIUM 8.6 mg/dL (8.5-10.1); CARBON DIOXIDE 28.2 mmol/L (21-32); CREATININE SERUM 1.2 mg/dL (0.6-1.0); POTASSIUM SERUM 4.3 mmol/L (3.5-5.1)
[2016-09-26 06:42] LABS: BASOPHIL % 0.4 % (0-2); PLATELET COUNT 258 x10^3mcL (130-400)
[2016-09-26 06:52] LABS: RED CELL DISTRIBUTION WIDTH 14.7 % (11.5-14.5)
--- NOTE | 2016-09-26 07:15 | NUR ---
BEDSIDE REPORT RECEIVED FROM [facility] SHIFT NURSE AT THIS TIME. PATIENT AWAKE, ALERT, NO SIGNS OF DISTRESS NOTED, BIPAP IN PLACE AT 14//30%, ALL SAFETY MEASURES IN PLACE, WILL CONTINUE TO MONITOR.
--- NOTE | 2016-09-26 07:50 | NUR ---
PATIENT AWAKE, ALERT, WATCHING TV, NO SIGNS OF DISTRESS NOTED. DENIES CHEST PAIN, NO DIZZINESS, TELE# 12. ON O2 2L VIA NC, SANTANA CATHETER IN PLACE TO GRAVITY WITH YELLOW COLORED URINE. IV TO LFA SALINE LOCKED, WNL. CALM AND COOPERATIVE WITH CARE, ALL SAFETY MEASURES IN PLACE, ALL NEEDS ATTENDED TO, WILL CONTINUE TO MONITOR.
[2016-09-26 08:45] VITALS: BP 100/76
--- NOTE | 2016-09-26 09:07 | NUR ---
TREVIN MADE AT THIS TIME WITH MD TEAM, CHARGE NURSE HOOD, AND DR DE LA CRUZ. PATIENT AWAKE, ALERT, AWAITING HOSPITAL BED TO BE DELIVERED TO HOME, PATIENT TO HAVE HOME HEALTH UPON DISCHARGE FOR WOUND CARE, ALL QUESTIONS AND CONCERNS ADDRESSED, WILL CONTINUE TO MONITOR.
[2016-09-26 14:04] VITALS: BP 102/72
[2016-09-26 15:03] VITALS: BP 100/76
--- NOTE | 2016-09-26 17:13 | NUR ---
PATIENT AWAKE, ALERT, DAUGHTER AT BEDSIDE, NO SIGNS OF DISTRESS NOTED. ALL SAFETY MEASURES IN PLACE, WILL CONTINUE TO MONITOR.
--- NOTE | 2016-09-26 17:50 | NUR ---
PATIENT AWAKE, ALERT, NO SIGNS OF DISTRESS NOTED. ALL SAFETY MEASURES IN PLACE, WILL CONTINUE TO MONITOR.
[2016-09-26 17:53] VITALS: BP 102/76
--- NOTE | 2016-09-26 19:56 | NUR ---
RECEIVED PT IN BED AWAKE , ALERT AND ORIENTED. NO C/O PAIN NOTED AT THIS TIME. RESPIRATIONS EVEN AND UNLABORED. IV INTACT WITH NO INFILTRATION NOTED. SEE SUPERSONIC ENGINEER FOR FURTHER DETAILS. INSTRUCTED PT TO USE CALL LIGHT IF NEEDS ASSISSTANCE WITH ANYTHING. CALL LIGHT IN REACH. WILL MONITOR.
[2016-09-26 21:17] VITALS: BP 130/65
--- NOTE | 2016-09-26 21:28 | NUR ---
PT SAYS SHES "NOT READY" FOR HHN TX OR TO BE PLACED ON BIPAP. WILL CHECK BACK.
--- NOTE | 2016-09-26 22:30 | NUR ---
CAME BACK TO CHECK ON PT. SHE STATES SHES STILL NOT READY TO BE PLACED ON BIPAP. WILL CHECK BACK.
--- NOTE | 2016-09-26 22:42 | NUR ---
PT C/O PAIN AND RECEIVED PAIN MEDICATION ORDERED. MORPHINE 2MG IVP. RESPIRATIONS EVEN AND UNLABORED. WILL MONITOR.
--- NOTE | 2016-09-26 23:15 | NUR ---
PT STATES SHE FEELS A BIT BETTER AFTER PAIN MEDICATION GIVEN. WILL MONITOR PT.
--- NOTE | 2016-09-27 | NUR ---
PT SLEEPING AT THIS TIME WITH NO DISTRESS NOTED. RESPIRATIONS EVEN AND UNLABORED. BIPAP IN PLACE. CALL LIGHT IN REACH. WILL MONITOR.
--- NOTE | 2016-09-27 03:00 | NUR ---
PT CONTINUES TO SLEEP AT THIS TIME WITH NO DISTRESS NOTED. RESPIRATIONS EVEN AND UNLABORED. WILL MONITOR PT.
[2016-09-27 05:41] VITALS: BP 135/85
[2016-09-27 06:49] LABS: BASOPHIL % 0.3 % (0-2); PLATELET COUNT 259 x10^3mcL (130-400); RED CELL DISTRIBUTION WIDTH 14.5 % (11.5-14.5)
--- NOTE | 2016-09-27 07:15 | NUR ---
DYLON GALLEGOS, BIPAP IN PLACE NO LEAKAGE. NO DISTRESS NOTED. IV ACCESS PATENT TO LFA #22. BED IN LOWEST POSITION, CALL LIGHT WITHIN REACH.
[2016-09-27 07:20] LABS: CALCIUM 8.9 mg/dL (8.5-10.1); CARBON DIOXIDE 30.2 mmol/L (21-32); CREATININE SERUM 1.2 mg/dL (0.6-1.0); MAGNESIUM 1.9 mg/dL (1.8-2.4); PHOSPHOROUS 3.6 mg/dL (2.5-4.9); POTASSIUM SERUM 4.4 mmol/L (3.5-5.1)
[2016-09-27 10:07] VITALS: BP 120/60
--- NOTE | 2016-09-27 12:00 | NUR ---
PT SLEEPING AT MOMENT. LOW FOWLERS. BIPAP IN PLACE. NO DISTRESS NOTED. CALL LIGHT WITHIN REACH.
--- NOTE | 2016-09-27 13:21 | NUR ---
Follow-up Nutrition Assessment Dx:Possible sepsis Labs: (09/27) BH, Cr:1.2H, trending down, H/H: 8.3/26L, Meds:D10, Dulcolax, Fergon, Humulin, Lactinex, Lactulose, Levoquin, Levemir, Senokot, NS IVF, Theragran, Vitamin C, Heparin. [facility] PO intake: 100% x 3 days. Weights: unable to obtain. Pt stated staff unplugged bed and was unable to zero out bed. Skin: intact, Marco:15 Edema: +1 edema to BLE Last BM: 09/26 Per progress note on 09/27, pt with acute kidney injury on chronic kidney disease 2/2 acute infection, in the setting of ongoing Naproxen use. Cr,urine output and bloating has improved. Pt on CPAP. Pt is pending discharge once hospital bed is set up. During visit pt was c/o nausea but no c/o diarrhea or constipation. Pt continues with good PO intake 100% x 3 days and had no questions for RD. Estimated Nutritional Needs unchanged from prior assessment:68kg (ideal body weight) Energy: 2040-2380kcal/day Protein: 102-136g/day (1.5-2.0g/kg) Fluid: 2380ml/day (1ml/kcal) or per doctor Nutrition Diagnosis 1. Morbid obesity related to sedentary lifestyle as evidenced by BMI:84.8kg/m2 (ongoing) 2. Altered nutrition labs related to elevated blood glucose and HgA1c:6.7 (ongoing) 3. Altered GI function related to possibly pain meds as evidenced by no BM x 3 days per pt (resolved) Intervention 1. Recommend continue with current diet order ([facility] 60g) Monitor/Evaluate Goal: PO intake at least 75% of estimated needs Monitor: PO intake, Labs F/U in 7 days as low risk 10/04
--- NOTE | 2016-09-27 18:02 | NUR ---
PASSED AFTERNOON MEDS, PT TOLERATED WELL. PT STATES PAIN IS TOLERABLE. ON 2LNC. PT TOLERATING DIET WELL. CALL LIGHT WITHIN REACH.
[2016-09-27 18:08] VITALS: BP 137/59
--- NOTE | 2016-09-27 21:00 | NUR ---
PT RECIEVED AAO REG RESP NO SOB,V/S STABLE,KEPT CLEAN AND DRY TO TOUCH,PT HAS A DRESSING TO THE LT BUTTOCKS AND DRESSING INTACT,PT HAS A F/C TO GRAVITY WITH CLARK URINE OUTPUT,IV INFUSING WELL WITH THE SITE PATENT AND INTACT,PT ON CONTACT ISOLATION,PT ON SPECIAL BED,MADE COMFORTABLE IN BED,CALL LIGHT EASY REACHED AND WILL CONTINUE TO MONITOR.
[2016-09-27 22:51] VITALS: BP 147/58
[2016-09-28 06:10] VITALS: BP 120/78
--- NOTE | 2016-09-28 06:12 | NUR ---
PT HAD A RESTING NIGHT NO CHANGE IN CONDITION AT THIS TIME,WILL CONTINUE TO MONITOR.
--- NOTE | 2016-09-28 06:13 | NUR ---
PT WAS PUT ON BIPAP AND TOLERATING IT WELL,WILL CONTINUE TO MONITOR.
--- NOTE | 2016-09-28 07:41 | NUR ---
PT AWAKE ALERT AND ORIENTED A4 ABLE TO MAKE NEEDS KNOWN, MED SURG PT. SENSATION INTACT, GENERALIZED EDEMA PULSES PALPABLE EQUAL BILATERAL. LUNGS DIMINISHED TO BLL. BOWLE TONES ACTIVE IN ALL QUADS. SANTANA IN PLACE PATENT AND DRAINING. BEDBOUND, PT ABLE TO TURN SELF. WOUNDS (SEE SHIFT ASSESSMENT). DENIES PAIN AT THIS TIME. IV TO THE LFA PATENT AND INFUSING. PT IS CALM AND COOPERATIVE WITH CARE, CALL LIGHT IN REACH. AIR MATTRESS IN PLACE. WILL CONTINUE TO MONITOR.
[2016-09-28 08:53] VITALS: BP 110/60
--- NOTE | 2016-09-28 13:40 | NUR ---
PT RESTING IN BED NO SIGNS OF DISTRESS, EVEN UNLABORED RESPIRATIONS. CALL LIGHT IN REACH WILL CONTINUE TO MONITOR.
--- NOTE | 2016-09-28 15:56 | NUR ---
REPORTED PAIN 8/10 IN BLE, GIVEN MORPHINE FOR PAIN.
[2016-09-28 16:44] VITALS: BP 120/65
--- NOTE | 2016-09-28 18:09 | NUR ---
PT RESTING IN BED, NO SIGNS OF DISTRESS, CALL LIGHT IN REACH. EVEN UNLABORED RESPIRATIONS. CALL LIGHT IN REACH WILL CONTINUE TO MONITOR.
[2016-09-28 19:30] VITALS: BP 120/59
--- NOTE | 2016-09-28 19:30 | NUR ---
RECEIVED PT AWAKE ALERT AND VERBALLY RESPONSIVE.NEW IV REINSERTED BY ANOTHER NURSE TO LFA WITH GOOD BLOOD RETURN.BREATHING EASY AND NON-LABORED.O2 @ 3L/MIN VIA N/C.SOME WHEEZING ON EXPIRATION.DENIES CHESTPAIN AT THIS TIME.BP 120/59 MMHG,HR 77.MN 8/10 TO LEGS/BACK/NECK.MORPHINE 2 MG IVP ADMINISTERED.ON BARIATRIC BED.WILL ASSIST WITH REPOSITIONING.F/C TO YELLOW COLORED URINE.WILL CONTINUE TO MONITOR.
--- NOTE | 2016-09-29 02:42 | NUR ---
PT C/O SEVERE PAIN TO HER PUBIS AREA RADIATING TO HER BACK MORE TO R SIDE VERBALIZING"THRE'S SOMETHING WRONG WITH MY BLADDER".SANTANA CATHETER EMPTIED TO YELLOW CLOUDY COLORED URINE 1500 ML.MORPHINE 2 MG IVP ADMINISTER.WILL INFORM .
--- NOTE | 2016-09-29 04:53 | NUR ---
PT SLEPT WITH INTERVALS.ON BIPAP ORDERED AND WELL TOLERATED.BREATHING TX GIVEN ORDERED.NO ASE NOTED FROM CLEOCIN IV ATB.MEDICATED WITH MOTPHINE 2 MG IVP X3 FOR BACK /PUBIC PAIN WITH GOOD RELIEF.REMAINS ON CONTACT ISOLATION.GOODHANDWASHING TECHNIQUE OBSERVED.ALL NEEDS MET.WILL CONTINUE TO MONITOR.
[2016-09-29 06:07] VITALS: BP 120/60
--- NOTE | 2016-09-29 06:21 | NUR ---
REFUSED MORNING CARE AT THIS TIME.CONTINUED TO C/O R SIDE BACK PAIN.MORPHINE 2 MG IVP ADMINISTERED.COMFORT MEASURES RENDERED.WILL CONTINUE TO MONITOR.
[2016-09-29 06:53] LABS: CALCIUM 8.8 mg/dL (8.5-10.1); CARBON DIOXIDE 32.9 mmol/L (21-32); CREATININE SERUM 1.1 mg/dL (0.6-1.0); MAGNESIUM 1.8 mg/dL (1.8-2.4); PHOSPHOROUS 4.4 mg/dL (2.5-4.9); POTASSIUM SERUM 4.3 mmol/L (3.5-5.1)
--- NOTE | 2016-09-29 07:32 | NUR ---
PT IS A+OX4, COMPLAINING OF PAIN, DENIES NAUSEA, SOB, AND HEADACHE, CURRENTLY ON BIPAP, PULSES MODERATE AND EQUAL BILATERALLY, EDEMA BLE AND BUE +1, LUNG SOUNDS DIMINISHED, BOWEL SOUNDS ACTIVE, SANTANA CATHETER PRESENT, DRAINING YELLOW URINE, GENERALIZED WEKANESS, BEDBOUND, REQUIRES TOTAL CARE, REDNESS TO BUTTOCKS WITH OPTIFOAM, CDI, REDNESS IN ABD FOLDS, WOUND IN R AXILLA WITH NYSTATIN POWDER, IV IN LFA WITH 5 ML NS. CH 97, CO2, 32.9, CR 1.1.
[2016-09-29 10:07] VITALS: BP 124/77
--- NOTE | 2016-09-29 10:20 | NUR ---
PT RESTING IN BED, RECEIVING BREATHING TREATMENT, NO RESPIRATORY DISTRESS NOTED, STATES PAIN HAS IMPROVED.
--- NOTE | 2016-09-29 13:09 | NUR ---
PT COMPLAINING OF NAUSEA AND PAIN, GIVEN ZOFRAN AND MORPHINE. UNABLE TO GET PT'S WEIGHT FROM BED, DIRECTOR RAOUL PIERCE STATES WE MUST GET THE PTS WEIGHT VIA NADJA LIFT.
--- NOTE | 2016-09-29 13:55 | NUR ---
USED NADJA LIFT TO RAISE PT OFF THE BED AND WEIGH HER. NADJA LIFT: 565.5 LBS, BED SCALE 563.4.
--- NOTE | 2016-09-29 13:55 | NUR ---
PT NOTES 1100 New PT eval received, cleared by RN, but patient when approached patient for PT, patient adamantly refused. Patient was encouraged to participate with PT for PT eval, but refused PT x 3, and PT order was D/C'd. Patient has been educated multiple times regarding benefits of mobility and consequences of immobility, but still cont to refused even with max encouragement. Patient states that she is in too much pain, that we always come at the wrong time, but educated patient when she would like to participate with PT, and at this time patient refused therapy. Will D/C PT, but will be glad to evaluate once patient is agreeable to therapy. Spoke with MD, agreeable with POC. Nursing aware. [phone]
[2016-09-29 15:58] VITALS: BP 124/77
--- NOTE | 2016-09-29 16:44 | NUR ---
NURSES TURNED AND REPOSITIONED PT, OPTIFOAM DRESSING CHANGED. REDNESS AND RAWNESS THROUGHOUT BACK AND BUTTOCKS, Z GUARD PLACED.
--- NOTE | 2016-09-29 16:46 | NUR ---
PERFORMED SANTANA CARE AND AND BED BATH, CLEANED ABD AND LEG FOLDS, WHICH ARE RED AND RAW WITH BUMPS, NYSTATIN POWDER PLACED ON ABD AND LEG FOLDS.
[2016-09-29 17:04] VITALS: BP 122/80
--- NOTE | 2016-09-29 17:55 | NUR ---
PT RESTING IN BED COMPLAINING OF PAIN, NAUSEA, SOB, AND HEADACHE. MORPHINE GIVEN.
--- NOTE | 2016-09-29 18:29 | NUR ---
PT COMPLAINING OF PAIN AT IV SITE, IV INFILTRATED, IV REMOVED, CATHTER INTACT. NEW IV PLACED IN RFA, BLOOD RETURN PRESENT, FLUSHED, PATENT.
--- NOTE | 2016-09-29 19:30 | NUR ---
PT A/O X4. MED-SURG, NO TELE. PULSES PALPABLE, +1 EDEMA TO BUE AND BLE. EXPIRATORY WHEEZES AND DIMINISHED LUNG SOUNDS AUSCULTATED, ON 02 2L NC, PT DENIES SOB. ABD IS SOFT AND OBESE. BOWEL SOUNDS ACTIVE X4. PT REPORTS LAST BM-09/27/16. DENIES N/V AT THIS TIME. SANTANA CATHETER DRAINING YELLOW URINE VIA GRAVITY. PT IS BED BOUND, TOTAL CARE, WITH LIMITED ROM TO BUE AND BLE. PT HAS MULTIPLE WOUNDS TO SKIN. STAGE 3 ULCER TO LEFT BUTTOCK WITH OPTIFOAM DRESSING IN PLACE, CDI. BILATERAL AXILLA WOUND NOTED WITH NYSTATIN AND INTERDRY IN PLACE. REDNESS TO ABD FOLDS AND LEG FOLDS WITH NYSTATIN POWDER AND INTERDRY DRESSING IN PLACE. PT DENIES PAIN AT THIS TIME. SALINE LOCK TO RFA, FLUSHING WELL, CDI. CALL LIGHT WITHIN REACH. WILL CONTINUE TO MONITOR.
[2016-09-29 20:47] VITALS: BP 130/90
--- NOTE | 2016-09-29 23:50 | NUR ---
PT C/O 8/ PAIN TO LEFT BUTTOCK. MEDICATED WITH MORPHINE ORDERED. WILL MONITOR FOR RELIEF.
--- NOTE | 2016-09-29 23:51 | NUR ---
PT C/O NAUSEA. ADMINISTERED ZOFRAN ORDERED. WILL MONITOR FOR VOMITING OR NAUSEA RELIEF.
--- NOTE | 2016-09-30 01:06 | NUR ---
PT ASLEEP WITH BIPAP ON AT THIS TIME. NO RESP DISTRESS NOTED, NO SIGNS OF PAIN OR NAUSEA OBSERVED. WILL CONTINUE TO MONITOR.
--- NOTE | 2016-09-30 06:15 | NUR ---
PT C/O ABD AND BLADDER PAIN-10/20. MORPHINE ADMINISTERED ORDERED. WILL MONITOR FOR PAIN RELIEF. BIPAP IN PLACE, PT DENIES SOB. PT REFUSES SANTANA CARE AT THIS TIME. SANTANA DRAINING YELLOW URINE VIA GRAVITY. SALINE LOCK TO RFA, PATENT AND INTACT. WILL ENDORSE CARE TO AM NURSE.
[2016-09-30 06:46] LABS: BASOPHIL % 0.2 % (0-2); PLATELET COUNT 245 x10^3mcL (130-400)
[2016-09-30 06:50] LABS: RED CELL DISTRIBUTION WIDTH 14.6 % (11.5-14.5)
[2016-09-30 06:52] LABS: CALCIUM 8.9 mg/dL (8.5-10.1); CARBON DIOXIDE 33.8 mmol/L (21-32); CREATININE SERUM 1.2 mg/dL (0.6-1.0); POTASSIUM SERUM 4.5 mmol/L (3.5-5.1)
--- NOTE | 2016-09-30 07:17 | NUR ---
PT'S WEIGHT-590.8 LB VIA BED SCALE. PT ASLEEP AT THIS TIME. NO SIGNS OF RESP DISTRESS OBSERVED. CARE ENDORSE TO AM NURSE.
--- NOTE | 2016-09-30 07:45 | NUR ---
RECEIVED THE PATIENT SLEEPING IN BED. PATIENT AROUSABLE BY VERBAL STIMULUS AND ORIENTED TO PERSON, PLACE AND TIME. PATIENT DENIES SHORTNESS OF BREATH OR NAUSEA/VOMITING. PATIENT C/O PAIN IN BLADDER; MORPHINE 2MG IVP WAS MEDICATED TO THE PATIENT AT 0534 AM. WILL MEDICATE FOR PAIN WITH NORCO. SL TO RFA. F/C TO GRAVITY DRAINING YELLOW URINE. PATIENT WAS ON BIPAP AT THIS TIME. PATIENT WAS ON SPECIAL AIR MATTRESS. CALL LIGHT WITHIN REACH. SIDE RAILS UP X3.
--- NOTE | 2016-09-30 08:05 | NUR ---
DR. CARPENTER AND THE TEAM WERE MAKING ROUND TO SEE THE PATIENT. THE CARE PLAN WAS DISCCUSED WITH THE PATIENT.
--- NOTE | 2016-09-30 08:25 | NUR ---
NORCO WAS TOOK OUT AND GIVEN TO THE PATIENT FOR C/O PAIN IN URINARY BLADDER, BUT THE PATIENT CHANGED HER MIND AND WANTED TO WAIT FOR MORPHINE UNTIL DUE TIME. NORCO WAS DISCARD WITH WITNESS OF KAILASH CORNEJO.
[2016-09-30 08:52] VITALS: BP 140/72
--- NOTE | 2016-09-30 11:05 | NUR ---
THE PATIENT HAD BM AND WAS CLEANSED BEFORE NEW INTERDRY APPLIED TO AXILLARY AND FOLDS.
[2016-09-30 15:40] LABS: microscopic required? YES; urine erythrocyte 2+ (NEGATIVE)
[2016-09-30 17:11] VITALS: BP 121/68
--- NOTE | 2016-09-30 18:44 | NUR ---
THE PATIENT HAD TOTAL 3BM DURING THE SHIFT. THE PATIENT WAS CLEANSE, CHANGED. NEW DRESSING WAS APPLIED TO RIGHT BUTTOCK WOUND. THE PATIENT WAS ABLE TO REPOSITION IN BED BUT DID NOT WANT TO TURN VERY OFTEN IN BED.
--- NOTE | 2016-09-30 19:14 | NUR ---
THE PATIENT C/O SHARP PAIN TO URINARY BLADDER AND BOTH LEGS. MORPHINE 2MG IVP WAS MEDICATED TO THE PATIENT. ENDORSE TO RELIEF NOCS TO F/U AND REASSESS THE PAIN.
--- NOTE | 2016-09-30 19:20 | NUR ---
PATIENT RECEIVED AWAKE, ALERT, AND ORIENTED X 4. NO DISTRESS NOTED. PATIENT C/O 09/19 GENERALIZED PAIN. MEDICATED AT 1912 WITH MORPHINE IVP BY DAY SHIFT RN. IV SITE TO RIGHT FOREARM, PATENT AND INTACT. BED IN LOWEST POSITION. CALL LIGHT WITHIN REACH. WILL CONTINUE TO MONITOR.
[2016-09-30 21:40] VITALS: BP 120/66
[2016-10-01 06:13] VITALS: BP 110/60
[2016-10-01 06:17] LABS: BASOPHIL % 0.4 % (0-2); PLATELET COUNT 216 x10^3mcL (130-400)
--- NOTE | 2016-10-01 06:25 | NUR ---
PATIENT RESTED THROUGHOUT THE NIGHT. NO DISTRESS NOTED. MEDICATED FOR PAIN WITH MORPHINE X 2 PER DOCTOR'S PRN ORDER. PAIN MANAGED THROUGHOUT THE NIGHT. ALL NEEDS MET. SAFETY AND COMFORT MEASURES MAINTAINED. BED IN LOWEST POSITION. CALL LIGHT WITHIN REACH. WILL CONTINUE TO MONITOR AND ENDORSE TO NEXT SHIFT NURSE.
[2016-10-01 06:38] LABS: CALCIUM 8.7 mg/dL (8.5-10.1); CREATININE SERUM 1.1 mg/dL (0.6-1.0); POTASSIUM SERUM 4.2 mmol/L (3.5-5.1)
[2016-10-01 06:43] LABS: RED CELL DISTRIBUTION WIDTH 14.6 % (11.5-14.5)
--- NOTE | 2016-10-01 07:20 | NUR ---
RECEIVED PT IN BED, A/A/O X 4. BILATERAL RADIAL AND PEDAL PULSES PRESENT, EDEMA +1, NON-PITTING TO BUE/BLE, CAP REFILL <3 SECS. PT ON 2LNC, O2 SAT 95%. BILATERAL UPPER LUNGS WHEEZING, LOWER LUNGS DIMINISHED. ABD ROUND, FIRM, NON-TENDER. BOWEL SOUNDS ARE NORMOACTIVE X 4 QUADS. F/C SHOWS CLEAR YELLOW URINE. CONTINUES TO BE ON AIR MATTRESS FOR SKIN MANAGEMENT. REDDENED BLE, AXILLARY BREAST FOLD, AND ABD FOLD. DENIES PAIN AT THIS TIME. IV SITE @ RFA CDI, RUNNING NS @ TKO. BED IN LOW POSITION, SIDE RAILS UP X 2, CALL LIGHT WITHIN REACH. WILL CONTINUE TO MONITOR.
--- NOTE | 2016-10-01 08:36 | NUR ---
DR CAMPBELL, RESIDENTS, CHARGE NURSE, AND ASSIGNED NURSE CAME IN TO SEE PT; CARE PLAN DISCUSSED WITH PT, ALL QUESTIONS ANSWERED. PT VERBALIZED UNDERSTANDING.
[2016-10-01 09:15] VITALS: BP 138/70
--- NOTE | 2016-10-01 12:20 | NUR ---
PT REPORTS "IV HAS A LUMP ON IT. IT HURTS." ASSESSED IV ACCESS RFA #[id number] ANGIO. NO SWELLING OR S/S OF INFILTRATION NOTED. FLUSHES WELL WITH NORMAL SALINE. PT REQUESTS TO HAVE IT RESTARTED BY JESSIE LINDER AFTER 1PM. STATES "I HAVE REALLY BAD VEINS." REFUSES TO HAVE IT RESTARTED AT THIS TIME. WILL CONTINUE TO MONITOR. CALL LIGHT IN REACH.
--- NOTE | 2016-10-01 13:35 | NUR ---
PT IN BED, WATCHING MOVIES THROUGH HER CELLULAR PHONE. NO RESPIRATORY DISTRESS, PAIN, OR DISCOMFORT. WILL CONTINUE TO MONITOR.
--- NOTE | 2016-10-01 16:00 | NUR ---
PT'S WOUND ON POSTERIOR PORTION OF INNER THIGH DRESSING REMOVED; WOUND IS CLEAN, HAS SANGUINOUS DRAINAGE. CLEANSED WITH WOUND CLEANSER, PATTED DRY, APPLIED MEDIHONEY, THEN COVERED WITH OPTIFOAM. PT REPORTS THAT SHE DOES NOT FEEL ANY PAIN AT THE SITE. BILATERAL ARMPITS, BILATERAL BREAST FOLDS, AND ABDOMINAL FOLDS WERE ALL CLEANSED, PATTED DRY, AND APPLIED WITH NYSTATIN POWDER, AND LEFT OPEN TO AIR.
[2016-10-01 17:00] VITALS: BP 132/76
--- NOTE | 2016-10-01 18:13 | NUR ---
PT IN BED, WATCHING SHOWS ON HER CELL PHONE. A/A/O X 4. PT WAS JUST GIVEN MORPHINE 2MG IVP FOR GENERALIZED BODY PAIN 09/19. NO RESPIRATORY DISTRESS NOTED. SIDE RAILS UP X 2, CALL LIGHT WITHIN REACH. WILL ENDORSE TO NOC SHIFT.
--- NOTE | 2016-10-01 19:20 | NUR ---
RECEIVED PT IN BED AWAKE, ALERT,ORIENTED X4. PT IS CALM AND WATCHING TV AT THIS TIME. LUNG SOUNDS W/ EXP WHEEZE TO RUL. NO SOB NOTED. ON O2 AT 2L VIA N/C. SHE HAS NO C/O PAIN AT THIS TIME. W/ REDNESS TO BREAST FOLDS, ABDL FOLDS, AXILLA, BLE. PULSES PLAPABLE. W/ IVF NS AT TKO INFUSING VIA LTFA. PT ON AIR MATTRESS. CALL LIGHT W/IN REACH.
[2016-10-01 21:18] VITALS: BP 126/60
--- NOTE | 2016-10-01 21:45 | NUR ---
PT MEDICATED W/ MORPHINE SULFATE 2 MG IV FOR C/O GEN. BODY PAIN 9/10 LEVEL. PT POSITIONED MORE COMFORTABLY.
--- NOTE | 2016-10-01 22:15 | NUR ---
PT RESTING MORE COMFORTABLY AFTER MORPHINE WAS GIVEN. SHE IS WATCHING TV AT THIS TIME.
--- NOTE | 2016-10-02 01:30 | NUR ---
PT ASLEEP W/ BIPAP ON. NO RESP. DISTRESS NOTED.
--- NOTE | 2016-10-02 05:13 | NUR ---
PT REMAINS ASLEEP W/ BIPAP ON. NO EPISODE OF RESP. DISTRESS. SHE WAS MEDICATED FOR PAIN X1. SANTANA CATH INTACT AND PATENT. CONTACT ISOLATION MAINTAINED.
[2016-10-02 06:41] LABS: CALCIUM 8.6 mg/dL (8.5-10.1); CARBON DIOXIDE 30.1 mmol/L (21-32); CREATININE SERUM 1.1 mg/dL (0.6-1.0); POTASSIUM SERUM 4.3 mmol/L (3.5-5.1)
--- NOTE | 2016-10-02 06:47 | NUR ---
PT MEDICATED W/ MORPHINE SULFATE 2 MG IV FOR C/O GEN. BODY PAIN 11/20. PT REFUSED LINEN CHANGE AT THIS TIME. PT STATED SHE WANTS IT LATER. PT WENT BACK TO SLEEP.BIPAP REMAINS IN PLACE.
[2016-10-02 06:54] VITALS: BP 120/60
--- NOTE | 2016-10-02 08:00 | NUR ---
RECEIVED PATIENT A/A/OX3; BODY WEIGHT 587.8 LB. BED BOUND. DENIED CHEST PAIN. BREATHING SOUND DIMINISHED ELDON WITH WHEEZING TO RUL. O2 SAT 97% ON 2L VIA N/C. SANTANA PATENT. IVF TKO TO LFA. IV SITE CLEAN. MULTIPLE SKIN LESIONS TO AXILLA, ABD FOLD AND BREAST FOLD AND BUTTOCKS. NO C/O PAIN NOW. CONTACT ISOLATION IN PLACE. BIG BOY BED. CALL LIGHT IN REACH.
[2016-10-02 08:14] LABS: BASOPHIL % 0.7 % (0-2); PLATELET COUNT 194 x10^3mcL (130-400)
[2016-10-02 09:32] VITALS: BP 110/64
--- NOTE | 2016-10-02 10:00 | NUR ---
DR. CAMPBELL AND MEDICAL TEAM MADE MORNING ROUND.
--- NOTE | 2016-10-02 10:48 | NUR ---
C/O BODY PAIN ON 08/20; MORPHINE 2MG IVP GIVEN. CONTINUE MONITOR.
--- NOTE | 2016-10-02 12:00 | NUR ---
WOUND CARE AND DRSG CHANGED TO BUTTOCK, ELDON HIPS. ELDON AXILLERY, ELDON BREAST FOLDS, ABD FOLDS AND RT CHEST FOLD GIVEN. CLEANED OPENED WOUND W/ NS AND DRIED. THEN APPLIED HONEYTHERA GEL AND BOARDED DRSG. CLEANED FOLDS AND AXILLA WITH WRIP AND DRIED WITH GAUZES, NYSTATIN PODER APPLIED AND INTERDRY DRSG APPLED.
--- NOTE | 2016-10-02 12:15 | NUR ---
REPORTED TO DR. JOHNSON WITH PATIENT'S REDNESS W/ SCANT DRAINGE AT PERINEAL AREA. PATIENT C/O ICHING. DR. JOHNSON CHECKED AT BED SIDE. NEW ORDER IN WRITTING.
[2016-10-02 17:05] VITALS: BP 122/78
--- NOTE | 2016-10-02 18:28 | NUR ---
HAD BM X3, ONE LARGE AND TWO MEDIAN AMOUNT BM. SANTANA 2250CC OF YELLOW URINE OUTPUT. SANTANA CATH CARE GIVEN. TOLERATED DIET. DENIED PAIN NOW. ENDROSED CARE TO [facility] NURSE.
--- NOTE | 2016-10-02 18:32 | NUR ---
PATIENT REFUSED NYSTATIN POWDER TO PERINEAL AREA.
--- NOTE | 2016-10-02 19:50 | NUR ---
PT ALERT/ORIENTED X4. PT C/O LOWER ABD PAIN. WILL MEDICATE PER MD PRN ORDER. SEE SKIN ASSESSMENT FOR SKIN INTEGRITY. ENCOURAGED USE OF THE INCENTIVE SPIROMETER, PT ACKNOWLEDGED. PT ASSESSED; SEE NSG FLOWSHEET. SAFETY REINFORCED; SEE EDUCAT SHEET. WILL CONTINUE TO MONITOR.
[2016-10-02 21:01] VITALS: BP 122/60
--- NOTE | 2016-10-02 21:34 | NUR ---
PT REQUESTING XANAX FOR ANXIETY. MEDICATED WITH THE XANAX PER MD PRN ORDER. WILL CONTINUE TO MONITOR.
--- NOTE | 2016-10-02 22:00 | NUR ---
PT PLACED ON BIPAP BY RT
--- NOTE | 2016-10-02 22:30 | NUR ---
PT NOW SLEEPING AFTER BEING MEDICATED WITH THE XANAX AT 2133 (SEE EMAR). WILL CONTINUE TO MONITOR.
--- NOTE | 2016-10-03 00:29 | NUR ---
PT SLEEPING. NO DISTRESS NOTED. WILL CONTINUE TO MONITOR.
--- NOTE | 2016-10-03 02:40 | NUR ---
PT SLEEPING. NO DISTRESS NOTED. WILL CONTINUE TO MONITOR.
--- NOTE | 2016-10-03 05:12 | NUR ---
PT SLEPT IN LONG INTERVALS THROUGHOUT THE NIGHT. MEDICATED 1X DURING SHIFT FOR LOWER ABD PAIN (SEE EMAR). WILL CONTINUE TO MONITOR.
--- NOTE | 2016-10-03 05:52 | NUR ---
PT REFUSES TO HAVE SANTANA CARE DONE AT THIS TIME. PT ALSO REFUSES TO HAVE PICTURES TAKEN OF THE WOUNDS.
[2016-10-03 06:15] VITALS: BP 120/70
--- NOTE | 2016-10-03 09:00 | NUR ---
AWAKE. STILL ON BIPAP. OFFERED TO REMOVE BIPAP SO PT COULD EAT. ALERT AND ORIENTED. NO RESP DISTRESS NOTED. CONTACT ISOLATION FOR PROTEUS MIRABELIS TO WOUND SACRUM. NS INFUSING TKO TO LFA. MORBIDLY OBESE. ON AIR MATTRESS/BIG BOY BED. M/S PT NO TELE. SANTANA DRAINING DARK YELLOW URINE. RASHES UNDER BREASTS,ABD FOLD, GROIN AREA, AXILLA. DRESSING TO RIGHT BUTTOCK. C/O NECK,SHOULDER,BACK KNEE AND ABD PAIN. DOES NOT CARE FOR NORCO. WILL ADMIN PRN PAIN MED. CALL LIGHT WITHIN REACH. REQUIRES ALOT OF CARE PT IS SO OVERWEIGHT.
[2016-10-03 09:15] VITALS: BP 115/72
--- NOTE | 2016-10-03 11:20 | NUR ---
PT SLEEPING WITH BIPAP ON. CONTACT ISOLATION.
[2016-10-03 16:35] VITALS: BP 116/64
--- NOTE | 2016-10-03 16:51 | NUR ---
DRESSING CHANGES, AND WOUND CARE,PHOTOS TAKEN TO MULTIPLE RASHES AND ABRASIONS UNDER FOLDS.AXILLA. BED BATH GIVEN. 1 LG SOFT BM.
--- NOTE | 2016-10-03 18:49 | NUR ---
ALERT AND ORIENTED. WAITING FOR BED TO BE DELIVERED HOME SO PT CAN BE DC'D. CONTINUES TO REQUIRE MOD TO MAX ASSIST WITH ADL'S. CURRENTLY ON AIR MATTRESS ON BIG BOY BED. ABLE TO TURN AND REPOSITION SELF. NO LONGER ON CONTACT ISOLATION. NO MRSA FOUND. VSS. CALL LIGHT WITHIN REACH. ATTEMPTED TO PAGE RESIDENT RE: HEPARIN ON HOLD. AT A MEETING.
--- NOTE | 2016-10-03 20:08 | NUR ---
PT RECIEVED AAO REG RESP NO SOB,PT WATCHING TV,PT ON SPECIAL BED AND HAS A F/C TO GRAVITY WITH CLARK URINE OUTPUT,PT WITH DRYNESS TO THE FOLDS AND HAS INTERDRY CLOTH IN [place],KEPT CLEAN AND DRY TO TOUCH,HOB,CALL LIGHT MADE CLOSE TO THE PATIENT AND WILL CONTINUE TO MONITOR.
[2016-10-03 22:00] VITALS: BP 102/60
[2016-10-04 05:59] VITALS: BP 105/69
--- NOTE | 2016-10-04 06:50 | NUR ---
PT HAD A RESTING NIGHT MADE COMFORTABLE IN BED AND WILL CONTINUE TO MONITR.,PT REFUSED TO HAVE TO THE WEIGH THIS AM AND WILL ENDORSED TO AM NURSE AND WILL CONTINUE TO MONITOR.
--- NOTE | 2016-10-04 07:25 | NUR ---
RECEIVED PATIENT ON BIPAP MACHINE, BREATHING UNLABORED/EVEN AND PATIENT RESTING WITH EYES CLOSED. WILL CONT TO MONITOR.
--- NOTE | 2016-10-04 08:20 | NUR ---
PATIENT NOW AWAKE/ALERT, EATING BREAKFAST MEAL. REFUSED TO HAVE VITALS TAKEN AND BE ASSESSED UNTIL AFTER EATING. WILL COME BACK TO ASSESS PATIENT.
--- NOTE | 2016-10-04 08:33 | NUR ---
DR REDDY AND MEDICAL TEAM AT BEDSIDE. INFORMED PATIENT STILL WAITING FOR SAFE DISCHARGE WHEN BARIATRIC BED IS DELIVERED TO HOME, PATIENT VERBALIZED UNDERSTANDING.
--- NOTE | 2016-10-04 08:35 | NUR ---
PATIENT NOW AWAKE/ALERT, EATING BREAKFAST MEAL. REFUSED TO HAVE VITALS TAKEN AND BE ASSESSED UNTIL AFTER EATING. WILL COME BACK TO ASSESS PATIENT.
--- NOTE | 2016-10-04 09:00 | NUR ---
PATIENT A/O ABLE TO MAKE NEEDS KNOWN AND FOLLOWS COMMANDS, DENIES HEADACHE OR CP. LUNGS DIM WITH EXP WHEEZE NOTED, O2 SAT 95% ON RA. PERIPHERAL PULSES PALPABLE, EDEMA NOTED TO BUE/BLE. BOWEL SOUNDS ACTIVE, LAST BM STATED YESTERDAY. SANTANA IN PLACE DRAINING YELLOW URINE TO GRAVITY. REDNESS NOTED TO PERIAREA AND BUE/BLE/ABD/AXILLARY FOLDS, NYSTATIN APPLIED. OPTIFOAM INTACT TO RT BUTTOCK. EXCORIATION TO RT HIP NOTED. AIR MATTRESS IN PLACE. C/O "ALOT" OF PAIN TO RT ARM, RT BUTTOCKS/LE, WILL MEDICATE PER EMAR. V/S TAKEN AND CHARTED. CALL LIGHT WITHIN REACH.
[2016-10-04 09:27] VITALS: BP 110/70
--- NOTE | 2016-10-04 14:41 | NUR ---
Follow-up Nutrition Assessment Dx:Possible sepsis Labs: (10/02) BH, Cr:1.1H, H/H:8.9/28L. Meds: D10, Dulcolax, Fergon, Humulin, Lactinex, Levemir, Lactulose. Pulmicort, MVI, Vit C, Heparin, Zofran. Diet: [facility] Weights: admit wt: 576#, unable to obtain wt due to it not being zerod out. Skin: intact Edema: Edema to KATIE and BL ext +1. Last BM: 10/02 Pt admitted with possible sepsis and had been waiting for a bariatric bed, with social work supervisor making arrangements. During RD visit, pt reports good appetite and has been eating 100% of her meals with no c/o N/V/D/C. Estimated Nutritional Needs unchanged from prior assessment:ideal body weight 68kg. Energy: [id number] kcal/day Protein: 80g/day (1.2 g/day) Fluid: 2380 (1ml/kcal/day) Nutrition Diagnosis 1. Morbidly obese related to sedentary lifestyle as evidenced by BMI:84.8kg/m2 (continues) 2. Altered nutrition labs related to elevated blood glucose and HgA1c:6.7 (continues) Intervention 1. Recommend continue with current diet order [facility]. Monitor/Evaluate Goal: PO intake at least 75% of estimated needs Monitor: PO intake, Labs, F/U in 14 days as low risk 10/18
[2016-10-04 15:15] VITALS: BP 115/65
--- NOTE | 2016-10-04 15:59 | NUR ---
DR WINN PAGED REGARDING PLACING ANOTHER ORDER FOR PHYSICAL THERAPY. PATIENT HAD BEEN REFUSING SEVERAL DAYS AGO, ENCOURAGED TO HAVE SOME FORM OF PHYSICAL THERAPY WHILE INPATIENT STILL PER BLADIMIR BOB CM, SHE WILL CONTACT PHYSICAL THERAPISTS. PER DR WINN, SHE WILL SPEAK WITH PATIENT.
--- NOTE | 2016-10-04 17:35 | NUR ---
WIPED DOWN PATIENT BODY INCLUDING FOLDS AND CLEANSED WOUND SITES. NYSTATIN AND INTERDRY APPLIED TO BREAST/ABD/LEG FOLDS WITH REDNESS. OPTIFOAM DRESSINGS CHANGED TO BILAT OUTER THIGH SCALY/REDNESS/CLOSED WOUNDS, THERAHONEY AND NYSTATIN APPLIED. THERAHONEY APPLIED TO SMALL OPEN WOUNDS TO POSTERIOR THIGHS AND RT ABD FOLD, ISLAND DRESSING PLACED. DIANNA AREA AND SANTANA CATH TUBE CLEANSED WITH DESIGNATED WIPES. ZGAURD AND NYSTATIN APPLIED TO REDNESS TO INNER THIGHS/GROIN AREA. BED LINENS CHANGED, GOWN CHANGED. SANTANA EMPTIED, 1800 ML OUTPUT YELLOW URINE. PATIENT TOLERATED WELL.
--- NOTE | 2016-10-04 19:10 | NUR ---
REC'D PT RESTING IN BED. PT IS AAOX4. C/O 7/10 GENERALIZED PAIN BUT DOES NOT WANT PAIN MED AT THIS TIME. EXP WHEEZE HEARD ELDON. PT ON RA. NO SOB NOTED. MORBID OBESITY. PT ON BARIATRIC BED WITH AIR MATTRESS. GENERALIZED EDEMA NOTED. BS ACTIVE X4. SANTANA CATHETER IN PLACE DRAINING YELLOW URINE. RASHES NOTED TO AXILLARY, BREAST AND ABD FOLDS. DRESSING TO ELDON. THIGHS, CDI IV NOTED TO LFA. INTACT AND PATENT. SAFETY AND COMFORT MEASURES IN PLACE. CONTACT PRECAUTION IN PLACE. BED IN LOWEST POSITION. CALL LIGHT WITHIN REACH. WILL CONTINUE TO MONITOR.
--- NOTE | 2016-10-04 20:45 | NUR ---
PT C/O OF 09/19 BACK AND NECK PAIN. MEDICATED WITH MORPHINE ORDERED (SEE MAR).
[2016-10-04 21:49] VITALS: BP 106/69
--- NOTE | 2016-10-04 23:32 | NUR ---
PT C/O FEELING ANXIOUS. XANAX 0.5MG PO WAS GIVEN (SEE MAR).
--- NOTE | 2016-10-05 04:55 | NUR ---
PT RESTING IN BED. NO SIGNIFICANT CHANGES DURING SHIFT. NO DISTRESS NOTED. CALL LIGHT WITHIN REACH. WILL CONTINUE TO MONITOR.
[2016-10-05 05:56] VITALS: BP 102/70
[2016-10-05 07:12] LABS: BASOPHIL % 0.4 % (0-2); PLATELET COUNT 219 x10^3mcL (130-400)
[2016-10-05 07:35] LABS: CALCIUM 8.4 mg/dL (8.5-10.1); CARBON DIOXIDE 25.8 mmol/L (21-32); CREATININE SERUM 1.2 mg/dL (0.6-1.0)
[2016-10-05 07:39] LABS: RED CELL DISTRIBUTION WIDTH 14.7 % (11.5-14.5)
--- NOTE | 2016-10-05 09:00 | NUR ---
SEEN BY THE RESIDENT AND INTERNS AND PLAN OF CARE DISCUSSED.
[2016-10-05 09:33] VITALS: BP 144/59
--- NOTE | 2016-10-05 09:42 | NUR ---
RECEIVED PATIENT AWAKE AT THIS TIME AND WAS ASLEEP WTIH THE BI PAP WHEN REPORT WAS GIVEN AND DID NOT APPEAR IN ANY DISTRESS OR PAIN AT THAT TIME. LUNGS ARE DIMINISHED AND NO WHEEZING OR RALES HEARD AT THIS TIME. CONTINUED ON BREATHING TREATMENTS ADN TOLERATED WELL. GAVE ALL MEDICATIONS AND PATIENT HAS EDEMA TO THE LOWER EXTREMITES OF PITTING AT 2-3 PLUS AND SHE HAS REDNESS AND IRRATATION TO THE THIGHS PARTICULARLY TO THE RIGHT AND WITH REDNESS REPORTED TO THE FOLDS OF THE ABDOMEN AND GROIN. SHE HAS MULTIPLE WOUNDS TO THE PERIANAL AREA AND NTOED DRY WEAVE USED FOR MOISTURE DUE TO THE OBESITY AND TO HELP REDUSE SKIN TO SKIN CONTACT. PATEINT HAS BEEN REFUSING PHYSICAL THERAPY SHE PER REPORT FELT THE THERAPYWAS NOT EFFECTIVE. SHE HAS BEEN ON BEDREST HERE AND AT HOME AND HAS SINCE LAST VISIT GAINED AT LEAST 50 POUNDS. SHE HAS AND IF TO THE LEFT ARM AND INTACT AND SHE IS REQUING MORPHINE AT THIS TIME. GAVE INDICATED AND WILL MONITOR FOR EFFECTIVENES. PATIENT IS IN ISOLATION FOR PROTEUS MIRABILIS AND EHASCALIS TO THE SCRAL WOUND. PATIENT AHS HISTOYR OF ASTHMAM HTNM DM AND HAS HAD PERIRECTAL ABCESS DEBRIDEMTNT AND PERRECTAL CELLULITIS WELL BEING MORBIDLY OBESE. PATIENT HAS NOED H NAHD OF 8.9/28 AND ON IRON ORDERED. PATIENT HAS NO FURTHER ANTIBIOTICS AT THIS TIME AND IS AWAITING A BIG BOY BED FOR HOME USE THE ONE SHE HAD IS BROKEN AND IS NOT USEFUL FOR HER. PATIENT GIVEN MORPHINE AND RECEIVED A BREATHING TREATMENT AND HER ORAL AND INHALED MEDICATIONS ORDERED. VITALS AT 600AM AT 97.7, 74, 18, 102/70. 96% ON ROOM AIR. NOW AWAKE SHE IS AT 149/54 BLOOD PRESSURE. WILL MONITOR FOR THE EFFECTIVENESS OF THE PAIN MEDICATION GIVEN.
--- NOTE | 2016-10-05 10:30 | NUR ---
DRESSIGN TO THE BODY CHANGED WITH THE ASSISTANCE OF THREE OTHER NURSES PLUS THE MACHINE OPERATOR SLITTER TECHNICIAN. PATIENT HAS MULTIPLE AREAS AND IS VERY PARTICULAR IN THE PLACEMENT AND WHAT SHE BELIEVES IS THE APPROPRIATE PRODUCT TO USE IN THE PARTICULAR PLACE. PATIENT HAS THERAHONEY APPBED TO AREAS OF THE WOUND TO THE UPPER BACK OF THE THIGH, THE RIGHT AND LEFT AXILLARY WITH ALSO MICODINE POWDER DUE TO FUNGAL ISSUES. ALSO DRY WEAVE APPLIED TO THE AREAS OF THE AXILLARY, UNDER THE BREAST AND TO THE ABDOMINAL FOLDS PER PATIENT PREFERANCE AND POITIONING. PATIENT HAS MICODIN POWDER APPLED TO THE FOLDS OF THE THIGHS WELL. PATIENT TOLERATED TURNING SIDE TO SIDE AND HAS BEDDING SHE PREFERS BUT IS NOT RECOMENDED UNDER HER. SHE IS AWARE THE BED IS TO HAVE NO SHEETS APPLIED FOR OPTIMAL PREFORMANCE. TOLERATED THE PROCEDURES WELL AND NOW STATES WITH NAUSEA. WILL GIVE ZOFRAN ORDERED.
--- NOTE | 2016-10-05 10:35 | NUR ---
PATIEN WITH IV SWELLING AT THIS TIME POST THE ZOFRAN INFUSION. RESTARTED THE IV TO THE SAME ARM AND TOLERATED WELL WITH [address] CONTINUED ON FLUIDS ORDERED.
--- NOTE | 2016-10-05 11:30 | NUR ---
BLOOD SUGAR AT LUNCH AT 189 AND GAVE THREE UNITS OF REGULAR. PATIENT HAS BEEN ABLE TO TURN HERSELF FOR CLEANING WELL AND IS NOT COMPLAINING OF PAIN AT THIS TIME.
[2016-10-05 17:00] VITALS: BP 119/51
--- NOTE | 2016-10-05 17:23 | NUR ---
BLOOD SUGAR AT THIS TIME AT 173 AND GAVE 3 UNITS OF REGULAR ORDERED. JAMES APPEARS COMFORTABLE AND WATCHING TV AT THIS TIME.
--- NOTE | 2016-10-05 19:20 | NUR ---
RECEIVED REPORT FROM DAY SHIFT RN. PT WATCHING TV AT THIS TIME. NO SOB ON ROOM AIR. NO C/O PAIN AT THIS TIME. IV ON LFA, INTACT. ON BARIATRIC BED. SANTANA CATHETER IN PLACE DRAINING YELLOW URINE. SAFETY MEASURES IN PLACE. SIDE RAILS UP X2. INSTRUCTED PT TO CALL IF ASSISTANCE IS NEEDED CALL LIGHT WITHIN REACH.
[2016-10-05 20:48] VITALS: BP 140/62
--- NOTE | 2016-10-05 22:00 | NUR ---
Awake and verbally responsive. No resp.distress noted. Denies pain at this time. On contact isolation. On bariatric bed. Multiple skin issues. Will cont.to monitor. Call light within reach.
--- NOTE | 2016-10-05 23:30 | NUR ---
PT STATED PAIN LEVEL 8/10 IN NECK AND INNER THIGHS. MEDICATED WITH MORPHINE 2MG IV ORDERED. SUPPORT PT WITH PILLOWS. WILL REASSESS PAIN LEVEL.
--- NOTE | 2016-10-06 04:03 | NUR ---
Asleep at this time. No cues of pain. on Bipap. Afebrile. No significant change in condition noted. Had morphine IV for c/o neck and thigh pain and seems with help. Contact isolation, proper use of PPE and good hand hygiene observed.
[2016-10-06 06:20] VITALS: BP 130/60
[2016-10-06 06:26] LABS: BASOPHIL % 0.7 % (0-2); PLATELET COUNT 226 x10^3mcL (130-400)
[2016-10-06 06:42] LABS: CALCIUM 8.6 mg/dL (8.5-10.1); CARBON DIOXIDE 28.3 mmol/L (21-32); CREATININE SERUM 1.2 mg/dL (0.6-1.0); MAGNESIUM 2.1 mg/dL (1.8-2.4); PHOSPHOROUS 4.5 mg/dL (2.5-4.9); POTASSIUM SERUM 3.9 mmol/L (3.5-5.1)
--- NOTE | 2016-10-06 08:00 | NUR ---
A/A/OX3; MORBID OBESITY. WT = 577.5 LBS. BED REST NOW. DENIED CHEST PAIN. NO RESP DISTRESS ON RA. SANTANA PATENT WITH YELLOW URINE OUTPUT. IV TKO TO LFA. TOLERATED CCHO DIET BREAKFAST. NO C/O PAIN NOW. MULTIPLE SKIN LESIONS. PATIENT DIDN'T WANT TO WOUND CARE NOW. CALL LIGHT IN REACH. CONTINUE MONITOR.
--- NOTE | 2016-10-06 09:05 | NUR ---
DR. GREENE AMD MEDICAL TEAM MADE MORNING ROUND. PLAN OF CARE DISCUSSED WITH PATIENT, INCLUDED WITH DISCHARGE TO HOME IF BED AVAILABLE. PATIENT AGREED WITH PLAN OF CARE.
[2016-10-06 10:18] VITALS: BP 130/82
[2016-10-06 17:06] VITALS: BP 140/72
--- NOTE | 2016-10-06 19:00 | NUR ---
RESTING BED AND PLAYING IPHONE. DENIED PAIN. TOLERATED DIET WELL. NO BM THIS SHIFT. URINE OUTPUT 2550CC VIA SANTANA. REDNESS TO PERINEAL AREA SUBSIDING. PATIENT DIDN'T WANT TO WOUND CARE AND DRSG THIS SHIFT. ENDORSD CARE TO [facility] NURSE.
[2016-10-06 21:45] VITALS: BP 138/64
--- NOTE | 2016-10-06 21:45 | NUR ---
INTERDRY DRESSINGS ON BREAST FOLDS, ABD FOLDS, LEFT AND RIGHT AXILLA NOT SOILED. PT REFUSED ASSESSMENT OF BACK AND BUTTOCKS/COCCYX AREA. PT ALSO REFUSED WOUND CARE AND DRESSING CHANGE. PT STATES "DRESSINGS WERE ALREADY CHANGED YESTERDAY. THERE ARE NO OPEN WOUNDS THERE".
[2016-10-07 06:35] LABS: CALCIUM 8.5 mg/dL (8.5-10.1); CARBON DIOXIDE 27.9 mmol/L (21-32); CREATININE SERUM 1.3 mg/dL (0.6-1.0); MAGNESIUM 1.9 mg/dL (1.8-2.4); PHOSPHOROUS 4.4 mg/dL (2.5-4.9); POTASSIUM SERUM 3.9 mmol/L (3.5-5.1)
[2016-10-07 06:42] LABS: BASOPHIL % 0.7 % (0-2); PLATELET COUNT 230 x10^3mcL (130-400); RED CELL DISTRIBUTION WIDTH 14.6 % (11.5-14.5)
[2016-10-07 06:51] VITALS: BP 140/70
--- NOTE | 2016-10-07 07:00 | NUR ---
PT SLEPT AT LONG INTERVALS DURING SHIFT. XANAX GIVEN X1 FOR ANXIETY. C/O BACK AND THIGH PAIN, MEDICATED WITH MORPHINE X1. SAFETY MEASURES MAINTAINED. CALL LIGHT WITHIN REACH. PT IRRITABLE DURING MED PASS AND WHEN VITALS ARE BEING CHECKED. PT WENT BACK TO SLEEP AFTER. WILL ENDORSE CONTINUITY OF CARE TO ONCOMING RN.
--- NOTE | 2016-10-07 07:25 | NUR ---
RECEIVED PATIENT ASLEEP TRY TO AROUSED PATIENT; PATIENT A LITTLE AGITATED; WILL BE BACK TO ASSESS PATIENT WHEN FULLY AWAKE. CALL LIGHT WITHIN REACH. BIPAP REMAIN ON, CONT TO MONITOR.
--- NOTE | 2016-10-07 09:35 | NUR ---
PATIENT SIT UP IN BED NO DISTRESS NOTED, ALL DUE MEDS GIVEN. PATIENT REFUSED WOUNDS CARE AT THIS TIME. REQUEST FOR MORPHINE FOR PAIN. DR. HERNANDEZ SEEN PATIENT DISCUSS POC AND WANT TO KNOW IF PATIENT AGREE TO WORK WITH PT TODAY. PATIENT STATE WILL TRY TODAY. MORPHINE 2MG IVP GIVEN FOR 7/10 GENERALIZED PAIN. NEEDS ANTICIPATED.
[2016-10-07 10:07] VITALS: BP 132/68
--- NOTE | 2016-10-07 10:58 | NUR ---
PATIENT RESTING IN BED AWAKE WATCHING TV, STATE PAIN IS BETTER 5/10. PT AT BEDSIDE WILL WORK WITH PATIENT. NEEDS ANTICIPATED.
--- NOTE | 2016-10-07 11:40 | NUR ---
INFORM PATIENT WILL NEED TO DO DIANNA CARE AND SANTANA CARE; ASSISTING EXTENSION PROFESSOR WITH DIANNA CARE AND WOUND CARE; CLEANSE SKIN WITH SOAP AND WARM WATER THOROUGHLY; PAD DRY APPLIED NYSTATIN POWDER TO BREAST/ABDOMEN/GROIN FOLDS; THERAHONEY TO ELDON AXILLA AND INTERDRY AND HIPS COVER WITH OPTIFOAM. PATIENT TOLERATED WITH MILD DISCOMFORT. NO DISTRESS NOTED. NEEDS ATTENDED. CALL LIGHT WITHIN REACH.
--- NOTE | 2016-10-07 14:28 | NUR ---
INFORM DR. HERNANDEZ TO RENEW MORPHINE AND PATIENT REQUEST MEDICATION FOR VAGINA DISCHARGE AND ITCHING.
--- NOTE | 2016-10-07 14:36 | NUR ---
PATIENT AWAKE/ALERT IN BED WATCHING TV, MORPHINE 2MG IVP GIVEN FOR 7/10 GEN PAIN. NEEDS ANTICIPATED.
--- NOTE | 2016-10-07 15:41 | NUR ---
PATIENT RESTING IN BED AWAKE DIFLUCAN 150MG PO GIVEN ORDERED; STATE PAIN IS RELIEF. NEEDS ANTICIPATED.
[2016-10-07 17:37] VITALS: BP 122/72
--- NOTE | 2016-10-07 17:49 | NUR ---
Patient awake in bed watching TV, no complaints. Dinner tray given. Due meds given. Needs attended. Cont to monitor.
[2016-10-07 18:00] VITALS: BP 122/72
--- NOTE | 2016-10-07 20:12 | NUR ---
PT ALERT AND AWAKE. AOX3. VERBAL WITH CLEAR SPEECH. NO S/S OF RESPIRATORY DISTRESS NOTED. LUNGS CLEAR BILATERALLY. DENIES ANY CHEST PAIN. ABD ROUND AND SOFT. BOWEL SOUNDS ACTIVE. SKIN WARM AND DRY. IV TO LEFT FA PATENT AND INTACT. NO S/S OF INFECTION NOTED. EDEMA NOTED TO BLE. PULSES PALPABLE. PT C/O NECK AND LOWER BACK PAIN 8/10. PRN MORPHINE 2 MG IVP GIVEN. CALM AND COOPERATIVE AT THIS TIME. CALL LIGHT WITHIN REACH. WILL CONTINUE TO MONITOR.
[2016-10-07 20:39] VITALS: BP 140/70
--- NOTE | 2016-10-08 01:25 | NUR ---
PT RESTING IN BED. ALERT AND AWAKE. PT C/O /10 NECK PAIN. PRN MORPHINE 2 MG IVP GIVEN. ON BIPAP AT THIS TIME. REPOSITIONED FOR COMFORT. CALL LIGHT WITHIN REACH. WILL CONTINUE TO MONITOR.
[2016-10-08 05:16] VITALS: BP 130/90
--- NOTE | 2016-10-08 06:44 | NUR ---
PT SLEPT WELL THROUGH THE NIGHT. ON BIPAP ALL NIGHT. TOLERATED WELL. BREATHING EQUAL AND UNLABORED. NO S/S OF RESPIRATORY DISTRESS NOTED. NO S/S OF DISTRESS NOTED. CALL LIGHT WITHIN REACH. WILL CONTINUE TO MONITOR.
--- NOTE | 2016-10-08 07:10 | NUR ---
PT AWAKE ALERT AND ORIENTED X4, ABLE TO MAKE NEEDS KNOWN. MEDSURG PT. PULSES EQUAL BILATERAL GENERALIZED EDEMA NOTED. LUNGS CTA SLIGHTLY DIMINISHED TO BLL. BOWEL TONES ACTIVE. SANTANA CATH IN PLACE DRAINING YELLOW URINE. BED BOUND. WOUNDS NOTED SEE SHIFT ASSESSMENT. DENIES PAIN AT THIS TIME. IV TOT HE LFA. PT IS CALMA ND COOPERATIVE WITH CARE AT THIS TIME.
[2016-10-08 07:49] LABS: CALCIUM 8.5 mg/dL (8.5-10.1); CARBON DIOXIDE 30.1 mmol/L (21-32); CREATININE SERUM 1.2 mg/dL (0.6-1.0); POTASSIUM SERUM 3.9 mmol/L (3.5-5.1)
--- NOTE | 2016-10-08 09:46 | NUR ---
PT ASLEEP IN BED, WILL MEDICATE ONCE AWAKE.
--- NOTE | 2016-10-08 10:12 | NUR ---
PT ASLEEP IN BED NO SIGNS OF DISTRESS CALL LIGHT IN REACH WILL CONTINUE TO MONITOR.
[2016-10-08 10:42] VITALS: BP 122/80
--- NOTE | 2016-10-08 12:13 | NUR ---
PT HAD LARGE BM, CLEANED AND DRESSINGS CHANGED, INTERDRY PLACED IN UNDER ARM FOLDS. WOUND TO BUTTOCKES CLEANED. SANTANA CARE COMPLETED.
[2016-10-08 16:38] VITALS: BP 122/57
--- NOTE | 2016-10-08 19:57 | NUR ---
REC'D PT FROM DAY NURSE GOLDY. AAOX4. LAYING IN BED COMFORABLY. DENIES PAIN. MEDSURG PT. PULSES ARE EVEN AND PALPABLE. LUNG SOUNDS ARE DIMINISHED ELDON BUT CTA. GENERALIZED EDEMA NOTED BLE. ABD IS ROUND AND SOFT AND ACTIVE. SANTANA CATHETER IN PLACE DRAINING YELLOW URINE. PT IS BED BOUND. WOUNDS NOTED. IV INTACT AND PATENT. BED IN LOWEST POSITION. CALL LIGHT WITHIN REACH. WILL CONT TO MONITOR.
[2016-10-08 21:27] VITALS: BP 138/62
--- NOTE | 2016-10-09 01:15 | NUR ---
PT IS CURRENTLY ASLEEP. BIPAP NOTED. BREATH SOUNDS ARE EVEN AND UNLABORED. NO SIGNS OF RESP DISTRESS NOTED. WILL CONT TO MONITOR.
--- NOTE | 2016-10-09 03:00 | NUR ---
PT WAS COMPLAINING OF ITCHINESS. CLEANED AND REPOSITION IN BED. PT STATED SHE WANTED TO SPEAK TO THE DR ABOUT THE ISSUE TO HER ITCHINESS. PAGED . NOW WAITING FOR A CALL BACK.
--- NOTE | 2016-10-09 04:50 | NUR ---
DR DODSON IN THE ROOM.
[2016-10-09 06:00] VITALS: BP 140/60
--- NOTE | 2016-10-09 06:30 | NUR ---
PT SLEPT PERIODICALLY THROUGHOUT THE SHIFT. NO RESP ACUTE DISTRESS OR SIGNIFICANT CHANGES NOTED. ALL NEEDS MET AND ATTENDED TO. IV INTACT AND PATENT INFUSING WELL. WILL ENDORSE ALL CONTINUITY CARE TO ONCOMING NURSE.
--- NOTE | 2016-10-09 08:43 | NUR ---
Pt SLEEPING AT THIS TIME. EASILY AWAKEN. REQUESTED NOT TO BE DISTURBED AT THIS TIME. WILL CONTINUE TO MONITOR.
--- NOTE | 2016-10-09 10:22 | NUR ---
Pt SLEEPING AT THIS TIME. PER REQUEST, Pt DOES NOT WANT TO BE AWAKEN. NO DISTRESS NOTED. WILL CONTINUE TO MONITOR.
--- NOTE | 2016-10-09 11:18 | NUR ---
COMPLAINS OF GENERALIZED PAIN, 09/19. IV MORPHINE GIVEN. WILL CONTINUE TO MONITOR.
[2016-10-09 16:54] VITALS: BP 122/80
--- NOTE | 2016-10-09 17:33 | NUR ---
Pt USING CELLULAR DEVICE. NO DISTRESS NOTED. TOOK MEDS WITHOUT DIFFICULTY.
--- NOTE | 2016-10-09 19:35 | NUR ---
SEEN AWAKE, ALERT, ORIENTED X4 USING HER CELL PHONE, BREATHING EASY ON ROOM AIR. ON BIPAP AT NIGHT FOR SLEEP APNEA. STS NECK&LOWER BACK PAIN IS TOLERABLE. GEN BODY WEAKNESS, ON BARIATIC BED. IVF NS TO LFA TKO INFUSING WELL. PLAN OF CARE DISCUSSED. CALL LIGHT PLACED WITHIN EASY REACH. SIDERAILS UP X2.
[2016-10-09 21:18] VITALS: BP 120/68
--- NOTE | 2016-10-09 22:16 | NUR ---
STS PAIN TO NECK&LOWER BACK 5/10 ON PAIN SCALE, MORPHINE 2MG IVP SLOWLY GIVEN. WILL CONTINUE TO MONITOR.
--- NOTE | 2016-10-09 22:30 | NUR ---
REFUSED KENALOG TOP, NYSTATIN POWDER TOP AND NYSTATIN OINT TOP. STS" I FEEL FINE RIGHT NOW, WILL LET YOU KNOW WHEN I NEED IT, I JUST WANT TO GO TO SLEEP AT NIGHT".
--- NOTE | 2016-10-10 06:26 | NUR ---
SLEPT WELL THROUGHOUT SHIFT USING BIPAP. NO ANY DISTRESS NOTED. REFUSED WOUND TREATMENT AND DRESSING CHANGED. REFUSED TO BE CLEANED IN AM STS" I JUST WANT TO SLEEP, WILL DO IT LATER". WILL ENDORSE TO INCOMING RN. IV NS TKO TO LFA INFUSING WELL.
--- NOTE | 2016-10-10 07:35 | NUR ---
PT SEEN RESTING ON BED WITH BIPAP ON. PT BREATHING EVEN, UNLABORED. SANTANA IN PLACE, DRAINING FREELY VIA GRAVITY. IV SITE PATENT, INFUSING AT TKO RATE.
[2016-10-10 08:10] VITALS: BP 125/65
--- NOTE | 2016-10-10 14:39 | NUR ---
PT NOTES 0266 PT CLEARED BY RN FOR TX BUT DECLINED. PT STATES THAT SHE DOES NOT WANT TO DO PHYSICAL THERAPY WHILE HER FATHER IS THERE. SPOKE TO PT'S FATHER AND HE STATES THAT HE'S LEAVING IN AN HOUR. TOLD PT THAT WE'LL BE BACK BEFORE LUNCH. 1328 SECOND ATTEMPT. PT DECLINED TREATMENT AND STATES THAT HER BED DEFLATED. PT WAS ENCOURAGE TO PARTICIPATE BUT DECLINED D/T C/O OF BACK PAIN. PT STATED THAT SHES UNCOMFORTABLE AND IS LAYING ON A PIECE OF METAL. RN NOTIFIED AND STATED THAT THE SALES AND TRAINING SPECIALIST WAS ALREADY NOTIFIED. F/U TOMORROW.
[2016-10-10 17:20] VITALS: BP 133/56
--- NOTE | 2016-10-10 17:59 | NUR ---
OFFERED PT TO HAVE DRESSING CHANGE, BUT PT REFUSED. SHE STATED BED BROKEN, SHE IS NOT ABLE TO TURN. WILL ENDORSE COMING NURSE. SANTANA CARE PROVIDED.
--- NOTE | 2016-10-10 19:23 | NUR ---
CLEANED AND CHANGED PT'S DRESSING ON E[place]ON POST THIGHS. PT COMPLAINED OF PAIN WHILE SHE WAS TURNING TO SIDE. PER PT REPORT THERE IS SKIN MOLD ON HER LEFT CHEST. PICTURE TAKEN. PT IS WATCHING TV, BREATHING ON RA, EVEN, UNLABORED. IV SITE PATENT, INTACT. INFUSING ON TKO RATE.
--- NOTE | 2016-10-10 19:55 | NUR ---
RECEIVED PATIENT IN BED AWAKE, ALERT AND ORIENTED, NO SIGN OF ACUTE RESPIRATORY DISTRESS NOTED. MED SURGICAL PATIENT. EDEMA 2+ TO BLE, THIGHS NOTED. PATIENT ON HEPARIN SQ 5000 UNITS. DIMINISHED BS SATTING AT 97% RA. IV TO LFA TO KVO INTACT AND INFUSING WELL. WILL CONTINUE TO MONITOR. CALL LIGHT WITHIN REACH.
--- NOTE | 2016-10-10 21:45 | NUR ---
C/O GENERALIZED BODY PAIN ,MEDICATED WITH MORPHINE 2MG IVP PRESCRIBED.
[2016-10-10 23:14] VITALS: BP 130/68
--- NOTE | 2016-10-11 00:47 | NUR ---
SLEEPING THIS TIME BREATHING EASY AND NONLABOR. WILL CONTINUE TO MONITOR.
--- NOTE | 2016-10-11 05:12 | NUR ---
SLEPT AT LONG INTERVALS. C/O BODYACHE X1 THROUGHOUT THE SHIFT AND MEDICATED PRESCRIBED. ALL NEEDS ATTENDED.
--- NOTE | 2016-10-11 07:05 | NUR ---
RECEIVED BEDSIDE REPORT; PT IN BED, A/A/O X 3. BILATERAL RADIAL PULSES PRESENT, PEDAL PULSES WEAK. EDEMA +2 ON BLE. CAP REFILL < 3 SECS. BILATERAL UPPER AND LOWER LUNG SOUNDS DIMINISHED, CHEST RISING EVENLY. ON R/A SPO2 = 98%. ABD ROUND, SOFT, NON-TENDER. NORMOACTIVE BOWEL SOUNDS X 4 QUADS. LAST BM 10/08/16. F/C DRAINING CLEAR YELLOW URINE, PT REPORTS NO DYSURIA. GENERALIZED WEAKNESS. DENIES PAIN AT THIS TIME. [facility], RUNNING NS TKO. SIDE RAILS UP X 2, CALL LIGHT WITHIN REACH. WILL CONTINUE TO MONITOR.
--- NOTE | 2016-10-11 08:20 | NUR ---
DR BANKS, RESIDENTS, CHARGE NURSE, AND ASSIGNED NURSE CAME TO SEE PT; DISCUSSED CARE PLAN WITH PT. ALL QUESTIONS ANSWERED. PT VERBALIZED UNDERSTANDING.
[2016-10-11 09:16] VITALS: BP 140/88
[2016-10-11 15:25] LABS: BASOPHIL % 0.4 % (0-2); PLATELET COUNT 261 x10^3mcL (130-400)
[2016-10-11 15:31] LABS: RED CELL DISTRIBUTION WIDTH 15.1 % (11.5-14.5)
--- NOTE | 2016-10-11 15:39 | NUR ---
PT STATED THAT SHE HAS GENERALIZED BODY PAIN 09/19, ASKED FOR MORPHINE IVP. GIVEN MORPHINE 2MG IVP. WILL CONTINUE TO MONITOR.
[2016-10-11 15:53] LABS: UA SPECIFIC GRAVITY <=1.005 (1.005-1.035); microscopic required? YES; urine erythrocyte 3+ (NEGATIVE)
--- NOTE | 2016-10-11 16:00 | NUR ---
WOUND CARE AND DRESSING CHANGES PERFORMED ON UPPER LEFT POSTERIOR THIGH, LEFT LATERAL THIGH, RIGHT LATERAL THIGH, BILATERAL AXILLA, BILATERAL UNDER BREAST FOLDS, LOWER ABDOMINAL FOLD. PT TOLERATED PROCEDURES WELL. WILL CONTINUE TO MONITOR.
--- NOTE | 2016-10-11 16:02 | NUR ---
PT NOTES 1030 PVE PT CLEARED BY RN FOR TX. PT DECLINED D/T C/O 8/10 PAIN DESPITE BEING PRE MEDICATED. PT STATES THAT ONSET OF PAIN WAS CAUSED BY NADJA LIFT WHILE BED WAS BEING FIXED. TOLD PATIENT THAT WE'LL BE BACK AFTER LUNCH. PT IN AGREEMENT. 1338 PVE PT CONTINUES TO DECLINED TX D/T C/O OF 8/10 PAIN DESPITED BEING PRE-MEDICATED. PT EDUCATED WITH IMPORTANCE OF TX AND EXERCISES. PT STATES THAT SHE DOES EXERCISES GIVEN BY HOME HEALTH PHYSICAL THERAPIST. PT STATES THAT SHE WILL PARTICIPATE IN THERAPY TOMORROW. DISCUSSED WITH PRIMARY PHYSICAL THERAPIST.
--- NOTE | 2016-10-11 18:51 | NUR ---
PT IN BED, WATCHING TV. NO RESPIRATORY DISTRESS, PAIN, OR DISCOMFORT. WILL ENDORSE TO NOC SHIFT.
--- NOTE | 2016-10-11 19:52 | NUR ---
PT IS AAOX4. PT IS A MED/SURG PT AND DENIES ANY PAIN AT THIS TIME. LUNG SOUNDS ARE DIMINISHED IN THE BLL. THE PT HAS A SANTANA PLACED. IV IN THE THE LFA, TKO. BOWEL SOUNDS ARE ACTIVE WITH THE LAST BM BEING 817. THE CALL LIGHT IS WITHIN REACH. WILL CONTINUE TO MONITOR.
--- NOTE | 2016-10-11 20:52 | NUR ---
CALLED DR. PEREZ ABOUT MORNING UA RESULTS. AWAITIG ORDERS.
[2016-10-11 22:05] VITALS: BP 140/64
[2016-10-12 05:54] VITALS: BP 142/70
--- NOTE | 2016-10-12 06:24 | NUR ---
PT IS RESTING COMFORTABLY IN BED. ALL NEEDS HAVE BEEN MET THROUGHOUT THE NIGHT. WILL ENDORSE TO MORNING SHIFT.
[2016-10-12 06:37] LABS: BASOPHIL % 0.6 % (0-2); PLATELET COUNT 238 x10^3mcL (130-400)
[2016-10-12 07:13] LABS: RED CELL DISTRIBUTION WIDTH 15.1 % (11.5-14.5)
--- NOTE | 2016-10-12 07:18 | NUR ---
PT IS A+OX4, COMPLAINING OF PAIN, DENIES NAUSEA, SOB, AND HEADACHE, PULSES MODERATE AND EQUAL, EDEMA +1 BLE, GENERALIZED EDEMA, LUNG SOUNDS DIMINISHED, CURRENTLY ON BIPAP, BOWEL SOUNDS ACTIVE, SANTANA CATH PRESENT, DRAINING YELLOW URINE, GENERALIZED WEAKNESS, BARIATRIC BED, REDNESS TO ABD FOLDS, BREAST FOLDS, AXILLA FOLDS, THIGHS, BUTTOCKS, IV IN LFA, SITE WNL. RBC 3.63, HGB 10.5, HCT 32.
[2016-10-12 09:00] VITALS: BP 141/61
--- NOTE | 2016-10-12 09:25 | NUR ---
PT RESTING IN BED, NO RESPIORATORY DISTRESS NOTED.
--- NOTE | 2016-10-12 09:29 | NUR ---
PT ASKED NURSE TO RETURN LATER TO GIVE MORNING MEDS BECAUSE SHE WANTS TO SLEEP MORE.
--- NOTE | 2016-10-12 10:41 | NUR ---
PT COMPLAINING OF PAIN, REQUESTING MORPHINE.
--- NOTE | 2016-10-12 11:21 | NUR ---
PT RESTING IN BED, NO RESPIRATORY DISTRESS NOTED, COMPLAINING OF 10/10 PAIN, PER DR EASON, PT CANNOT RECEIVE MORPHINE BECAUSE SHE IS TO BE DISCHARGED TODAY. PT UPSET AND REFUSING TO TAKE NORCO. PT CONTINUES TO REQUEST A VAGINAL EXAM.
--- NOTE | 2016-10-12 13:14 | NUR ---
PT RESTING IN BED, NO RESPIRATORY DISTRESS NOTED, EATING LUNCH, COMPLAINING OF PAIN, REFUSING NORCO.
--- NOTE | 2016-10-12 14:23 | NUR ---
PT STATED SHE RECEIVED A PHONE CALL FROM HER DAUGHTER AND THE BED COMPANY WHO STATED THAT HER BED WILL NOT BE DELIVERED TODAY. BULK MAIL TECHNICIAN NOTIFIED.
--- NOTE | 2016-10-12 14:48 | NUR ---
DR VELA PERFORMED VAGINAL EXAM WITH SPECULUM, PT COMPLAINING OF VAGINAL PAIN AND DISCHARGE.
--- NOTE | 2016-10-12 15:09 | NUR ---
PT RESTING IN BED, NO RESPIRATORY DISTRESS NOTED, COMPLAINING OF PAIN, REQUESTING MORPHINE, REFUSING NORCO. PER DR VELA PT IS NOT TO BE GIVEN MORPHINE AT THIS TIME BECAUSE SHE IS TO BE DISCHARGED.
--- NOTE | 2016-10-12 16:00 | NUR ---
PHYSICAL THERAPY DAILY NOTES CO-SIGN All documentation done by the Nutrition Director for 10/13/16 has been reviewed. I agree with the documentation. Reviewed/Co-Signed by: Franci Moreno PT Documentation Done by: Johanna Gary, FIELD PROFESSIONAL
--- NOTE | 2016-10-12 16:23 | NUR ---
PER CASE MANAGEMENT, THE BED WAS DELIVERED AND THE PT'S FAMILY REFUSED THE BED BECAUSE IT WAS THE WRONG SIZE. A DIFFERENT BED WILL BE DELIVERED 10/13 @ 1200 PM, BUT PT STATES HER FAMILY WILL REFUSE THE BED IF IT IS NOT THE RIGHT SIZE. THUS, PT CANNOT BE DISCHARGED TODAY AND WILL BE DISCHARGED TOMORROW 10/13 IF PT FAMILY ACEPTS BED. DR VELA AND CHARGE NURSE AWARE.
--- NOTE | 2016-10-12 16:34 | NUR ---
PT HAD ONE BM, CNAS AND NURSE CHANGED BED LINENS, PT GOWN, TURNED AND REPOSITIONED PT, BM SOFT AND BROWN.
--- NOTE | 2016-10-12 18:28 | NUR ---
PT COMPLAINING OF PAIN, MORPHINE 1 MG IV GIVEN, NO RESPIRATORY DISTRESS NOTED.
--- NOTE | 2016-10-12 19:30 | NUR ---
RECEIVED PATIENT FROM AM [place]. PATIENT QUIETLY RESTING IN BED AT THIS TIME. PREVIOUSLY MEDICATED FOR GENERALIZED. CONTACT PRECAUTIONS AND ALL OTHER SAFETY MEASURES IN PLACE. LUNG SOUNDS SLIGHTLY DIMINISHED BL. DENIES ANY SOB AT THIS TIME. EDEMA TO BLE. SANTANA CATHETER IN PLACE DRAINING YELLOW/CLOUDY URINE WITH WHITE DISCHARGE NOTED TO VAGINAL. REDNESS TO ABD FOLDS, AXILLA, THIGHS AND BUTTOCKS; INTERDRY IN PLACE. IV SITE TO LFA, FLUSHING WELL. CALL LIGHT WITHIN REACH AND WILL CONTINUE TO MONITOR.
--- NOTE | 2016-10-12 21:30 | NUR ---
PATIENT REFUSED NYSTATIN CREAM AND NYSTATIN POWDER, ALONG WITH KENALOG CREAM AT THIS TIME AND WANTS TO WAIT UNTIL MORNING.
[2016-10-12 21:56] VITALS: BP 130/62
--- NOTE | 2016-10-12 22:56 | NUR ---
ADMINISTERED PAIN MEDICATION FOR GENERALIZED PAIN TO WHOLE BODY 10/20.
[2016-10-13 06:12] VITALS: BP 138/50
--- NOTE | 2016-10-13 06:29 | NUR ---
SCHEDULED MEDICATIONS ADMINISTERED. PATIENT REFUSED CLEANING OF SANTANA CATHETER LINE PER PROTOCOL AT THIS TIME DUE TO PATIENT WANTING TO SLEEP. PATIENT ALSO REFUSED NYSTATIN POWDER, CREAM AND KENALOG CREAM TO BE PROVIDED. DENIES HAVING A BM LAST NIGHT. CURRENTLY ON BIPAP. NO S/SX OF DISTRESS.
--- NOTE | 2016-10-13 07:18 | NUR ---
ENDORSED CARE TO AM SUKHDEV. PATIENT SLEEPING IN BED AT THIS TIME WITH BIPAP ON. NO S/SX OF DISTRESS NOTED.
--- NOTE | 2016-10-13 07:20 | NUR ---
PT RECEIVED DURING CHANGE OF SHIFT, ASLEEP BUT AROUSABLE, NO TELE, PULSES PRESENT, EDEMA NOTED BLE, LUNGS DIM ON BIPAP, BOWEL SOUNDS ACTIVE, LBM 10/11/16, SANTANA IN PLACE, WHITE VAGINAL MALODOROUS DRAINAGE, GENERALIZED WEAKNESS, ON BARIATRIC BED, REDNESS TO BREAST FOLDS, ABD FOLDS, AXILLA, AND BLE, NO INDICATION OF PAIN AT THIS TIME, IV SALINE LOCKED IN LFA, IV WNL, CALL LIGHT WITHIN REACH, WILL CONTINUE TO MONITOR.
--- NOTE | 2016-10-13 08:34 | NUR ---
PT DENIES SOB ON BIPAP, FINISHED BREATHING TX, C/O PAIN 10/20, WILL MEDICATE PER EMAR, CALL LIGHT WITHIN REACH, WILL CONTINUE TO MONITOR.
--- NOTE | 2016-10-13 08:35 | NUR ---
DR. REDDY AND RESIDENTS MAKING ROUNDS, PLAN OF CARE DISCUSSED, DR. REDDY EXPLAINED THAT A NEW BED WOULD BE DELIVERED TODAY AND THAT THERE WAS A POSSILITY FOR DISCHARGE, PT STATES "NO, THEY WON'T DELIVER A NEW ONE TODAY, IT'LL JUST BE THE SAME ONE."
--- NOTE | 2016-10-13 08:44 | NUR ---
PT SPEAKING TO CASE MANAGEMENT REGARDING BED DELIVERY, PT STATES "LET THEM KNOW I'M NOT LEAVING TODAY", CASE MANAGEMENT MADE HER AWARE THAT AN EMAIL WAS SENT TO HER DAUGHTER REGARDING THE BED DELIVERY THIS MORNING, CASE MANAGEMENT INFORMED THE PT THAT THEY WOULD SPEAK TO THE REST OF THE TEAM DEPENDING ON WHAT TIME THE BED ARRIVES, PT STATING "THEY ARE CHANGING MY MEDICATIONS BECAUSE THEY THINK I'M LEAVING TODAY. PT STATES "I WANT TO GO HOME AND WORK WITH MY PHYSICAL THERAPIST, HE'S GREAT."
[2016-10-13 09:24] VITALS: BP 110/70
--- NOTE | 2016-10-13 09:38 | NUR ---
PT ASLEEP, NO INDICATION OF PAIN, BREATHING EVEN AND UNLABORED, CALL LIGHT WITHIN REACH, WILL CONTINUE TO MONITOR.
--- NOTE | 2016-10-13 10:43 | NUR ---
PT ASLEEP, NO INDICATION OF PAIN, BREATHING EVEN AND UNLABORED, CALL LIGHT WITHIN REACH, WILL CONTINUE TO MONITOR.
--- NOTE | 2016-10-13 11:26 | NUR ---
PT DENIES PAIN, DENIES SOB, RETURNED TRAY TO CART, CALL LIGHT WITHIN REACH, BS 157 WILL COVER PER EMAR, WILL CONTINUE TO MONITOR.
--- NOTE | 2016-10-13 12:26 | NUR ---
PT DENIES SOB, DENIES PAIN, STATED "THEY BROUGHT THE WRONG BED AGAIN, IT'S A PROBLEM WITH MY INSURANCE.", CALL LIGHT WITHIN REACH, WILL CONTINUE TO MONITOR.
--- NOTE | 2016-10-13 13:04 | NUR ---
PT DENIES SOB, DENIES PAIN, EATING LUNCH, CALL LIGHT WITHIN REACH, WILL CONTINUE TO MONITOR.
--- NOTE | 2016-10-13 14:17 | NUR ---
PT DENIES SOB, DENIES PAIN, ON PHONE WITH CASE MANAGEMENT DISCUSSING THE BED NEED FOR PT, CALL LIGHT WITHIN REACH, WILL CONTINUE TO MONITOR.
--- NOTE | 2016-10-13 15:14 | NUR ---
PT DENIES SOB, C/O PAIN 10/20, WILL MEDICATE PER EMAR, CALL LIGHT WITHIN REACH, WILL CONTINUE TO MONITOR.
--- NOTE | 2016-10-13 16:29 | NUR ---
PT DENIES SOB, DENIES PAIN, CALL LIGHT WITHIN REACH, BS 144 NO COVERAGE NEEDED, WILL CONTINUE TO MONITOR.
[2016-10-13 17:03] VITALS: BP 122/70
--- NOTE | 2016-10-13 17:10 | NUR ---
PT DENIES SOB, DENIES PAIN, C/O ANXIETY, WILL MEDICATE PER EMAR, CALL LIGHT WITHIN REACH, WILL CONTINUE TO MONITOR.
--- NOTE | 2016-10-13 18:12 | NUR ---
PT EATING DINNER, DENIES SOB, DENIES PAIN, CALL LIGHT WITHIN REACH, WILL ENDORSE PT TO NEXT SHIFT.
--- NOTE | 2016-10-13 20:15 | NUR ---
AAOX4. MED SURG. LUNG SOUNDS CLEAR AND UNLABORED BUT DIMINISHED BILATERAL. RADIAL AND PEDAL PULSES PALPABLE, PEDAL PULSES WEAK AND BLE EDEMA NOTED. BOWEL SOUNDS ACTIVE. SANTANA CATHETER PRESENT DRAINING YELLOW URINE, MALODOROUS WHITE VAGINAL DISCHARGE NOTED. PT IS BEDBOUND AND ON BARIATRIC BED. REDNESS NOTED UNDER BREAST FOLDS, ABD FOLDS, AXILLA. DRESSING TO LEFT BUTTOCK, CDI. LARGE SCAB WITH REDNESS NOTED TO LEFT THIGH. BLE SCALEY AND DRY. PT REFUSED ALL WOUND/SKIN CARE, DR. JOHNSON MADE AWARE. IV TO LEFT FA, SALINE LOCKED. NO REDNESS OR SWELLING. C/O BACK PAIN 10/20, WILL MEDICATE PER EMAR. BED IN LOW POSITION, CALL LIGHT IN REACH. INSTRUCTED TO CALL FOR ASSISTANCE.
--- NOTE | 2016-10-14 00:32 | NUR ---
RESTING IN BED WITH EYES CLOSED, AWAKENS EASILY TO VERBAL STIMULI. BREATHING EVEN AND UNLABORED. NO ACUTE DISTRESS NOTED. WILL CONTINUE TO MONITOR.
[2016-10-14 05:38] VITALS: BP 130/60
--- NOTE | 2016-10-14 06:05 | NUR ---
AAOX4. BREATHING EVEN AND UNLABORED, ON BIPAP. NO ACUTE DISTRESS NOTED. NO ACUTE CHANGES DURING SHIFT. WILL ENDORSE TO ONCOMING RN.
[2016-10-14 07:36] LABS: CALCIUM 8.7 mg/dL (8.5-10.1); CARBON DIOXIDE 26.6 mmol/L (21-32); CHLORIDE SERUM 103 mmol/L (98-107); GFR1 > 60 mL/min; GLUCOSE SERUM 129 mg/dL (74-106); POTASSIUM SERUM 3.5 mmol/L (3.5-5.1); SODIUM SERUM 139 mmol/L (136-145)
--- NOTE | 2016-10-14 08:00 | NUR ---
RECEIVED THE PATIENT SLEEPING IN BED; THE PATIENT RESPONSIVE TO VERBAL STIMULUS. ORIENTED TO PERSON, PLACE AND TIME THEN BACK TO SLEEP. PATIENT WAS ON BIPAP AT THIS TIME. F/C TO GRAVITY DRAINING CLARK URINE. CALL LIGHT WITHIN REACH. SIDE RAILS UP X3. BED WAS AT LOWEST POSITION.
--- NOTE | 2016-10-14 08:10 | NUR ---
DR. GREENE AND THE TEAM WERE MAKING ROUND TO SEE THE PATIENT.
--- NOTE | 2016-10-14 09:00 | NUR ---
NEW IV SITE #22 WAS INSERTED TO RFA BECAUSE THE THE OLD IV H/L WAS DISLODGED EARLIER WITH CATH INTACT.
[2016-10-14 09:44] VITALS: BP 140/80
--- NOTE | 2016-10-14 14:28 | NUR ---
PHYSICAL THERAPY DAILY NOTES CO-SIGN All documentation done by the Clinical Nurse Specialist for 10/14/16 has been reviewed. I agree with the documentation. I CONCUR W/EXPERIMENTAL MECHANIC ELECTRICAL NOTE, CONT PER TX PLAN IF Pt STAYS IN ACUTE CARE. Reviewed/Co-Signed by: Elisa Walters V PT Documentation Done by: BOB AMARO EXPERIMENTAL MECHANIC ELECTRICAL
--- NOTE | 2016-10-14 15:50 | NUR ---
THE PATIENT WAS GIVEN A BATH; OLD DRESSING WERE REMOVED. ALL THE WOUNDS WERE CLEANSED WITH WOUND CLEANSER BEFORE NEW DRESSING WERE APPLIED. LINEN AND GOWN WERE CHANGED. F/C WAS COMPLETED. THE PATIENT WAS RESTING IN BED AT THIS TIME.
[2016-10-14 18:11] VITALS: BP 138/86
--- NOTE | 2016-10-14 18:50 | NUR ---
THE PATIENT TOLERATED WELL WITH CCHO DIET. THEN, RESTING IN BED WITHOUT DISTRESS NOTED.
--- NOTE | 2016-10-14 19:43 | NUR ---
PT IS A/O X4, VERBAL RESPONSIVE, ABLE TO TELL WHAT SHE NEEDS. LUNG SOUND DIM BLL, DENY ANY RESPIRATORY DISTRESS AT THIS MOMENT, PT DENY ANY CHEST PAIN OR DISCOMFORT, BOWEL SOUND PRESENT ALL 4 QUADRANTS, NO DISTENTION, NO TENDER. PEDAL PULSE PRESENT BOTH FEET, +1 EDEMA BLE, IV AT RIGHT FA, NO LEAKING, NO INFILTRATION. SANTANA CATH IN PLACE, DRAINAGE CLARK URINE, ALL ADLS ASSIST, ALL NEED MET, CALL LIGHT IN REACH, WILL CONTNUE TO MONITOR THE PT.
--- NOTE | 2016-10-15 05:11 | NUR ---
PT IS SLEEPING, AWAKE BY TOUCH, DENY ANY RESPIRATORY DISTRESS, DENY ANY PAIN OR DISCOMFORT, IV AT RIGHT FA, NO LEAKING, NO INFILTRAITON. ALL ADLS ASSIST, ALL NEED MET, CALL LIGHT IN REACH, WILL CONTINUE TO MONITOR.
--- NOTE | 2016-10-15 07:15 | NUR ---
RECEIVED PT. IN BED A/A/O X3. NO SOB, NO N/V NOTED. DENIES ANY PAIN AT THIS TIME. NOTED THAT PT. IS ON BIPAP MACHINE. IV H/L NOTED TO R FA. PT. IS ON CONTACT ISOLATION FROM WOUND SITE. F/C DRAINING CLARK URINE. PT. IS ON BARIATRIC BED. BED IN LOW POS., CALL LIGHT WITHIN REACH. SIDE RAILS UP X 2.
--- NOTE | 2016-10-15 09:10 | NUR ---
DR. GORE, THE RESIDENTS, CHARGE NURSE, AND ATTENDING NURSE AT BEDSIDE. CAREPLAN DISCUSSED WITH PT. ALL QUESTIONS ANSWERED.
[2016-10-15 09:43] VITALS: BP 132/82
--- NOTE | 2016-10-15 16:40 | NUR ---
REMAINS IN STABLE CONDITION AT THIS TIME. NO ACUTE DISTRESS NOTED.
[2016-10-15 17:44] VITALS: BP 130/78
--- NOTE | 2016-10-15 19:35 | NUR ---
RECEIVED PT IN BED AWAKE, ALERT,ORIENTED X4. LUNG SOUNDS CLEAR BUT DIMINISHED AT THE BASES. NO SOB NOTED. BOWEL SOUNDS ACTIVE. PT HAS NO C/O PAIN. W/ SANTANA CATH INTACT DRAINING CLARK URINE. W/ HL TO RTFA INTACT. PT ON CONTACT ISOLATION.
[2016-10-15 22:09] VITALS: BP 121/70
--- NOTE | 2016-10-15 22:41 | NUR ---
PT APPEARS TO BE SLEEPING AT THIS TIME W/ BIPAP ON.
--- NOTE | 2016-10-16 05:23 | NUR ---
PT SLEPT AT LONG INTERVALS. PT USED BIPAP WHILE SLEEPING. SHE WAS MEDICATED FOR PAIN X1. SHE HAD NO EPSIODE OF SOB OR RESP. DISTRESS. NO BM NOTED THIS SHIFT. SANTANA CATH INTACT AND PATENT. ALL NEEDS ATTENDED TO. CONTACT ISOLATION MAINTAINED.
[2016-10-16 06:43] VITALS: BP 130/80
[2016-10-16 06:43] LABS: BASOPHIL % 0.6 % (0-2); PLATELET COUNT 215 x10^3mcL (130-400)
[2016-10-16 06:44] LABS: RED CELL DISTRIBUTION WIDTH 14.9 % (11.5-14.5)
--- NOTE | 2016-10-16 06:44 | NUR ---
PT REFUSED SANTANA CATH CARE.
[2016-10-16 07:00] LABS: CALCIUM 8.6 mg/dL (8.5-10.1); CARBON DIOXIDE 27.2 mmol/L (21-32); CREATININE SERUM 1.1 mg/dL (0.6-1.0); MAGNESIUM 1.8 mg/dL (1.8-2.4); PHOSPHOROUS 4.3 mg/dL (2.5-4.9); POTASSIUM SERUM 3.9 mmol/L (3.5-5.1)
--- NOTE | 2016-10-16 08:00 | NUR ---
RECEIVED PATIENT RESTING IN BED A/O X3, EASILY AROUSABLE TO VERBAL STIMULI. DENIES CHEST PAIN. PATIENT ON BIPAP AT THIS TIME, BREATHING EVEN UNLABBORED NO DISTRESS NOTED, HOB ELEVATED. PATIENT DENIES ANY PAIN. IV TO RFA INTACT INFUSING NS TKO, FREE FROM REDNESS AND INFILTRATION. INSTRUCTED PATIENT ON IMPORTANCE OF SKIN RE-ASSESSMENT TO CHECK FOR IMPROVEMENT OR ANY SKIN CHANGES BUT PATIENT IS REFUSING AT THIS TIME. PATIENT NOTED WITH SANTANA CATH TO GRAVITY DRAINING CLARK COLORED URINE, TUBING FREE OF KINKS. PATIENT REMAINS ON CONTACT ISOLATION. INSTRUCTED PATIENT TO CALL FOR ASSISTANCE IF NEEDED. CALL LIGHT WITHIN REACH, BED IN LOW POSITION. WILL CONTINUE TO MONITOR AND MAINTAIN SAFETY.
[2016-10-16 09:40] VITALS: BP 132/74
--- NOTE | 2016-10-16 10:11 | NUR ---
ROUNDS MADE- DR. GORE, RESIDENT TEAM, CHARGE NURSE AND PRIMARY NURSE AT BEDSIDE. POC REVIEWED- STILL WAITING ON BARIATRIC BED FOR PATIENT. SAFETY PRECAUTIONS MAINTAINED. WILL MONITOR.
--- NOTE | 2016-10-16 13:22 | NUR ---
PATIENT SITTING UP IN BED WATCHING TELEVISION, NO DISTRESS NOTED. DUE MEDS GIVEN, TOLERATED WELL. ALL NEEDS ATTENDED TO. SAFETY PRECAUTIONS MAINTAINED. WILL MONITOR.
--- NOTE | 2016-10-16 14:50 | NUR ---
PATIENT GIVEN MORPHINE 2 MG IVP Q3H PRN FOR GENERALIZED BODY PAIN. OFFERED PATIENT BED BATH TO GET CLEANED UP BUT PATIENT STATED TO WAIT ABOUT 30-45 MINUTES. ALL NEEDS ATTENDED TO. SAFETY PRECAUTIONS MAINTAINED. WILL MONITOR.
--- NOTE | 2016-10-16 16:35 | NUR ---
AT [id number]: PATIENT GIVEN FULL HEAD TO TOE BED BATH. DRESSINGS TO RIGHT HIP REMOVED. OPTIFOAM DRESSING TO BACK OF RIGHT THIGH REMOVED AND CHANGED, NO DRAINAGE NOTED. CLEANED UNDER BREAST AND ABDOMEN FOLDS, PAT DRY, AND APPLIED NYSTATIN POWDER AND INTERDRY. PATIENT ABLE TO TURN AND REPOSITION SELF WITH MINIMAL ASSIST. PATIENT TOLERATED REPOSITIONING AND BED BATH WELL. NEW GOWN AND LINEN PROVIDED. ALL NEEDS ATTENDED TO. WILL MONITOR.
[2016-10-16 18:43] VITALS: BP 142/80
--- NOTE | 2016-10-16 19:00 | NUR ---
REPORT GIVEN TO KAN LINDER, ALL QUESTIONS AND CONCERNS ADDRESSED. ALL CARES ENDORSED.
--- NOTE | 2016-10-16 19:00 | NUR ---
REC'D PT RESTING IN BED. PT IS AAOX4. C/O 7/10 BACK AND NECK PAIN. TOLERABLE AT THIS TIME. LUNG SOUNDS DIM. NO SOB NOTED. EDEMA NOTED TO BLE. BS ACTIVE X4. LAST BM TODAY. SANTANA CATHETER IN PLACE. DRESSING NOTED TO RIGHT BUTTOCK AND THIGH. REDNESS TO AXILLARY, BREAST AND ABD FOLDS. INTERDRY IN PLACE. PT IS ON BARIATRIC BED. IVF TKO TO RFA. INTACT AND PATENT. SAFETY AND COMFORT MEASURES IN PLACE. CONTACT PRECAUTION IN PLACE. BED IN LOWEST POSITION. CALL LIGHT WITHIN REACH. WILL CONTINUE TO MONITOR.
[2016-10-16 21:11] VITALS: BP 130/70
--- NOTE | 2016-10-17 05:02 | NUR ---
PT RESTED WELL. NO SIGNIFICANT CHANGES DURING SHIFT. PT CONTINUES ON BIPAP. CALL LIGHT WITHIN REACH. WILL CONTINUE TO MONITOR.
[2016-10-17 06:09] VITALS: BP 135/73
--- NOTE | 2016-10-17 07:38 | NUR ---
RECEIVED PT LAYING IN BED ASLEEP, BIPAP ON, NO APPARENT SIGNS OF ACUTE DISTRESS NOTED, RESPIRATIONS EVEN AND UNLABORED. IV SITE APPEARS PATENT RUNNING AT TKO. CALL LIGHT WITHIN REACH. WILL CONTINUE TO MONITOR
--- NOTE | 2016-10-17 08:30 | NUR ---
AM ROUNDS DONE. PER , AWAITING BERIATRIC BED FOR DISCHARGE HOME. ACCORDING TO REPORT FROM NIGHT NURSE, 2 BEDS WHERE ATTEMPTED FOR DELIVERY BUT FAMILY WAS NOT HAPPY WITH THEM. WILL CONTINUE WITH PLAN OF CARE
--- NOTE | 2016-10-17 11:39 | NUR ---
PT C/O PAIN 10/20. ENCOURAGED TO RELAX AND TAKE DEEP BREATHES. GIVEN MORPHINE IVP PRN. CALL LIGHT WITHIN REACH. PT CURRENTLY WATCHING VIDEOS ON PHONE. WILL CONTINUE TO MONITOR
--- NOTE | 2016-10-17 13:15 | NUR ---
PT IS CURRENTLY LYING IN BED WATCHING VIDEOS ON HER PHONE. CHECKED ON HER IF ANY HYGIENE NEEDS WHERE REQUIRED AND SHE STATED NO. CALL LIGHT WITHIN REACH. IV INFUSING WELL. WILL CONTINUE TO MONITOR
--- NOTE | 2016-10-17 14:18 | NUR ---
PT NOTES CHART REVIEWED AND CLEARED FOR PT BY RN. PATIENT IN HIGHFOWLER POSITION RESTING, DECLINES PARTICIPATION AT THIS TIME STATING, "BEFORE LUNCH?" NO PAIN EXPRESSED AT THIS TIME. NO OTHER NEEDS EXPRESSED AT THIS TIME. WILL RETURN AT LATER TIME. RETURNED TO PATIENTS ROOM TO ATTEMPT THERAPY AROUND 1400, BUT PATIENT CONTINUES TO DECLINE PARTICIPATION DESPITE ENCOURAGEMENT/MOTIVATION GIVEN, ALONG WITH BENEFITS OT THERAPY. "NOT TODAY, I'LL BE GOING HOME SOON THEY GET THEIR STUFF TOGETHER" STATED PATIENT. NO OTHER NEEDS EXPRESSED AT THIS TIME, WILL FOLLOW UP PATIENT TOMORROW IF POSSIBLE. RN MADE AWARE. WILL FOLLOW UP TOMORROW IF POSSIBLE, RN AWARE. CALL LIGHT IN REACH. PVEx2
--- NOTE | 2016-10-17 14:24 | NUR ---
PT RESTING IN BED WATCHING VIDEOS ON PHONE. NO APPARENT SIGNS OF ACUTE DISTRESS NOTED AT THIS TIME. GAVE HER NEW PITCHER OF ICE REQUESTED. CALL LIGHT WITHIN REACH. WILL CONTINUE TO MONITOR
--- NOTE | 2016-10-17 15:39 | NUR ---
Follow-up Nutrition Assessment Dx: Possible sepsis Labs: BG 136H, Cr 1.1H, WBC 5.9 (trending down) H/H 10.6/33L, Temp. 97.6F Meds: Cephulac, D10%, Dulcolax, Fergon, Humulin, Lactinex, Levemir, Lopressor, Mylicon, Nitrostat, Pravachol, Prilosec, Senokot, Theragran, Vit C 500mg BID, Heparin Diet: CCHO, 60g PO intake: (10/14) B: 60% L: 100% D: 100% (10/16) D: 100% (10/17) L: 100% D: 100% Weights: (09/21) 590lb (10/17) 561 lb Weight change: 29lb loss Weight%:4.9% loss (26 days) due to laxative medications Skin: Right Buttock erythema, Breast and abdominal fold irritation, Bilateral axillary areas erythema, Bilateral outer thighs/buttocks erythema. Marco: 13 Edema: Bilateral lower extremity edema Last BM: 10/15 Per progress note (10/16) pt is waiting for bed to be delivered at home for discharge, pt uses Bipap at night, and sepsis antibiotic course has been completed with WBC and temperature within normal limits. agribusiness internship visited pt who was having lunch and agribusiness internship answered pt's questions on DM diet. Pt feels she is given too many portions of bread, agribusiness internship educated pt on recommended starch servings per day and offered DM diet guidelines, pt agreeable to information. Pt requested almond milk, yogurt, and no dinner rolls. Estimated Nutritional Needs changed from prior assessment: 68kg ([place] Body Weight) Energy: 1700-2040kcal/day (25-30kcal/kg for Maintenance) Protein: 82-102g/day (1.2-1.5g/kg for Maintenance and skin integrity) Fluid: 2040ml/day (1ml/kcal) or per doctor Nutrition Diagnosis 1. Morbid obesity related to sendentary lifestyle as evidenced by BMI 84.8kg/m2 (Ongoing). 2. Altered nutrition lab values related to elevated blood glucose and A1C 6.7. (Ongoing) Intervention 1. Continue with current diet order, CCHO 60g Monitor/Evaluate Goal: PO intake to meet at least 75% of estimated needs (met) Monitor: PO intake, Labs (BG), GI function (met) F/U in 14 days as Low risk 10/31
--- NOTE | 2016-10-17 15:40 | NUR ---
1. Continue with current diet order, [facility]
[2016-10-17 17:20] VITALS: BP 135/73
--- NOTE | 2016-10-17 17:30 | NUR ---
ASKED LEARNING CONSULTANT TO ASSISTNCE FOR PT IN REGARDS TO PROVIDING PERICARE AND HYGIENE NEEDS. PT ON HER PHONE. STATED NOT NEEDED AT THIS TIME. CALL LIGHT WITHIN REACH. WILL CONTINUE TO MONITOR
--- NOTE | 2016-10-17 17:57 | NUR ---
PT IS CURRENTLY IN BED TALKING ON THE PHONE. NO APPARENT SIGNS OF ACUTE DISTRESS NOTED AT THIS TIME. IV APPEARS PATENT AND IS RUNNING A KVO. CALL LIGHT WITHIN REACH. WILL CONTINUE TO MONITOR
--- NOTE | 2016-10-17 19:28 | NUR ---
DURING ROUNDS WITH ONCOMING NURSE, PT STATED, "OK I WANT TO BE CHANGED AND CLEANED UP NOW." DUE TO TIME FRAME REQUIRED FOR PERICARE AND HYGIENE, WILL ENDORSE TO ONCOMING SHIFT. REPORTED INCIDENT TO BOTH [facility] NURSES, AND THE WEB MARKETING STRATEGIST FOR DAY SHIFT SO THAT IT CAN BE REPORTED TO NEXT WEB MARKETING STRATEGIST
--- NOTE | 2016-10-17 19:30 | NUR ---
PT IS ALERT AND ORIENTED. PLEASANT AND COOPERATIVE. OBESE. S/P DEBRIDEMENT OF RIGHT BUTTOCK. INTERDRY DRESSING OF AXILLARY AREAS, BREAST AND ABDOMINAL FOLDS. BERIATRIC BED. SANTANA CATHETER DRAINING YELLOW URINE OUTRPUT LARGE AMOUNT. STILL GETTING NS FLUID AT TKO RATE AND STILL GETTING ROCEPHIN FOR POSSIBLE INFECTION. PT IS GETTING HEPARIN SQ FOR DVT PROPHYLAXIS. LUNGS DIMINISHED ON AUSCULTATIONS BILATERALLY UPPER AND LOWER BASES. MADE COMFORTABLE IN BED. CALL LIGHT WITHIN EASY REACH. PT IS USING BIPAP AT NIGHT. WILL CONTINUE TO MONITOR.
--- NOTE | 2016-10-17 20:37 | NUR ---
PT CO SEVERE BODY ACHES 10/20. MEDICATED WITH MORPHINE 2 MG IVPUSH. WILL MONITOR. PT ALSO REQUEST FOR XANAX AND WAS ADMINISTERED. INCONTINENT OF BM. KEEP CLEAN AND DRY AT ALL TIMES. NOTED LEFT BUTTOCKS SKIN IS LEAKING SOME WHITISH DRAINAGE. PT ABLE TO TURN TO THE SIDES. WILL MONITOR.
[2016-10-17 21:00] VITALS: BP 150/80
--- NOTE | 2016-10-18 04:51 | NUR ---
PT IS RESTING WELL. BI PAP AT NIGHT AND TOLERATED WELL. MADE COMFORTABLE IN BED, CALL LIGHT WITHIN EASY REACH. SANTANA CATHETER DRAINING WELL WITH YELLOW URINE OUTPUT, MADE COMFORTABLE IN BED. CALL LIGHT WITHIN EASY REACH.
[2016-10-18 06:22] VITALS: BP 143/71
--- NOTE | 2016-10-18 07:38 | NUR ---
SLEEPING. ON BIPAP, BREATHING UNLABORED AND EVEN. BARIATIC BED IN USE. SANTANA IN PLACE, DRAINING YELLOW URINE TO GRAVITY.
--- NOTE | 2016-10-18 08:41 | NUR ---
DR ADAM IN TO SEE PATIENT.
--- NOTE | 2016-10-18 10:30 | NUR ---
ALERT AND ORIENTED.NO DISTRESS NOTED. ON R/A, NO SOB NOTED. PULSES PRESENT, EDEMA BLE. LARGE BOWEL MOVEMENT NOTED, FORMED, THIS MORNING. FLOEY DRAIN YELLOW URINE TO GRAVITY, SANTANA CARE COMPLETE. ABLE TO MOVE EXTREMETIES AND TURN SELF, GENERALIZED WEAKNESS, BARIATRIC BED. WOUND CARE DONE TO RIGHT BUTTOCK, NO DRAINAGE NOTED, SLIGHT REDNESS, DRESSING IN PLACE, CDI. BED BATH COMPLETE, THERAHONEY APPLIED TO BOTH HIPS, REDNESS NOTED. THERA HONEY AND INTER DRY APPLIED TO UNDERARMS. INTERDRY AND POWDER APPLIED UNDER BREAST AND ABD FOLD. POWDER TO FOLDS ON BLE. DRESSING TO RIGHT SIDE, CHANGED AND CLEANED, SOME REDNESS NOTED. GENERALIZED PAIN 8/10, GIVEN MORPHINE. IV RFA, PATENT AND INTACT, NS @ 5.
--- NOTE | 2016-10-18 13:02 | NUR ---
PT NOTES CLEARED BY RN FOR P.T. TX. ATTEMPTED TO SEE FOR P.T. TX (1200), BUT PATIENT DECLINED. PATIENT STATED, "NOT RIGHT NOW. THEY JUST GOT DONE WITH CLEANING AND CHANGING ME. I DON'T WANT TO DO IT TODAY." ENCOURAGED TO PARTICIPATE IN THERAPY, BUT CONTINUED TO DECLINED. PRIMARY THERAPIST & RN AWARE. PRIYAE
--- NOTE | 2016-10-18 15:47 | NUR ---
HAD LARGE BOWEL MOVEMENT, CLEAN PATIENT AND DRESSING CHANGE DUE TO STOOL ON DRESSING, DRESSING CDI
[2016-10-18 17:30] VITALS: BP 118/74
--- NOTE | 2016-10-18 17:38 | NUR ---
GIVEN MORPHINE FOR GENERALIZED PAIN 10/20. TOLERATED MEDS WELL. SITTING UP IN BED EATING DINNER
--- NOTE | 2016-10-18 18:37 | NUR ---
SITTING UP IN BED , ON CELLPHONE. BREATHING EVEN AND UNLABORED, NO DISTRESS NOTED
[2016-10-18 19:25] VITALS: BP 120/80
--- NOTE | 2016-10-18 19:30 | NUR ---
RECEIVED PT AWAKE ALERT ON HER PHONE.IN NO RESPIRATORY DISTRESS.BREATHING EASY AND NON-LABORED.TOLERATING ROOMAIR @ 95%.IL 6/10 TO GENERALIZED BODY ACHES.BP 120/80 MMHG,HR 79.ON CONTACT ISOLATION.WILL OBSERVE GOODHANDWASHING TECHNIQUE.WILL CONTINUE TO MONITOR.
--- NOTE | 2016-10-19 02:16 | NUR ---
CONTINUED TO C/O OF L SIDED CHESTPAIN .NTG 1 TAB SL GIVEN ORDERED BY DR. BENITEZ AND VERBALIZED RELIEF AFTER 5 MINS.WILL CONTINUE TO MONITOR.
--- NOTE | 2016-10-19 04:43 | NUR ---
PT SLEPT WELL ALL NIGHT.BIPAP AT HS ORDERED.BREEATHING TX GIVEN BY RT AND WELL TOLERATED.MEDICATED WITH MORPHINE 2 MG IVP X1 FOR GENERALIZED BODY ACHES WITH GOOD RELIEF.ALL NEEDS MET.WILL CONTINUE TO MONITOR.
[2016-10-19 06:07] VITALS: BP 101/57
--- NOTE | 2016-10-19 08:00 | NUR ---
RECEIVED PT IN BED. ASSESSED AND DOCUMENTED. DENIES ANY PAIN THIS TIME. SAFTEY PRECAUTIONS ON. WILL MONITOR.
--- NOTE | 2016-10-19 08:05 | NUR ---
AND RESIDENTS DID ROUNDS. EXPLAINED THE PLAN OF CARE AND ANSWERED PT'S QUESTIONS.
--- NOTE | 2016-10-19 09:00 | NUR ---
PT REFUSED DRESSING CHANGE IN THE MORNING.SHE SAID SHE WILL CALL ME FOR DRESSING CHANGE.
[2016-10-19 10:30] VITALS: BP 126/72
--- NOTE | 2016-10-19 15:00 | NUR ---
REQUESTED FOR DRESSING CHANGE AGAIN BUT PT SAID LATER AND SHE IS SLEEPY,REFUSED AGAIN.
[2016-10-19 17:55] VITALS: BP 137/75
--- NOTE | 2016-10-19 19:00 | NUR ---
PT IS EATING NOW, STABLE. GAVE REPORT TO NEXT SHIFT NURSE. ENDORSED TO NEXT SHIFT NURSE ABOUT DRESSING CHANGE.
--- NOTE | 2016-10-19 20:00 | NUR ---
PT ALERT/ORIENTED X4. NO C/O PAIN. SEE SKIN ASSESSMENT FOR SKIN INTEGRITY. PT ASSESSED; SEE NSG FLOWSHEET. SAFETY REINFORCED; SEE EDUCAT SHEET. WILL CONTINUE TO MONITOR.
[2016-10-19 21:30] VITALS: BP 140/70
--- NOTE | 2016-10-19 22:00 | NUR ---
PT C/O LF SHOULDER PAIN AND BACK PAIN. MEDICATED WITH MORPHINE SULFATE PER MD PRN ORDER. PT ALSO REQUESTING XANAX. MEDICATED WITH THE XANAX PER PT REQUEST. WILL CONTINUE TO MONITOR.
--- NOTE | 2016-10-19 23:08 | NUR ---
SANTANA CARE GIVEN TO PT. CLEANED WOUND TO RT BUTTOCK AND APPLIED THERA HONEY AND PUT A DRESSING OVER IT. INTRADRIES APPLIED TO BILAT AXILLA, UNDER BILAT BREASTS AND ABD FOLDS. WILL CONTINUE TO MONITOR.
--- NOTE | 2016-10-19 23:20 | NUR ---
PT PLACED ON BIPAP.
--- NOTE | 2016-10-19 23:50 | NUR ---
PT SLEEPING AFTER BEING MEDICATED WITH MORPHINE SULFATE FOR LF SHOULDER AND BACK PAIN (SEE EMAR) AT 2200. PT WAS ALSO MEDICATED WITH XANAX AT 2201 (SEE EMAR) WILL CONTINUE TO MONITOR.
--- NOTE | 2016-10-20 02:15 | NUR ---
PT SLEEPING. NO DISTRESS NOTED. WILL CONTINUE TO MONITOR.
--- NOTE | 2016-10-20 05:13 | NUR ---
PT SLEPT IN LONG INTERVALS THROUGHOUT THE NIGHT. NO DISTRESS NOTED. WILL CONTINUE TO MONITOR.
[2016-10-20 06:32] VITALS: BP 140/80
--- NOTE | 2016-10-20 08:00 | NUR ---
RECEIVED REPORT FROM THE OUT GOING SHIFT. PATIENT IS RESTING AT THIS TIME. WILLCONTINUE TO MONITOR.
[2016-10-20 09:00] VITALS: BP 140/80
--- NOTE | 2016-10-20 09:15 | NUR ---
PATIENT SEEN BY THE THE RESIDENT AND INTERNS AND PLAN OF CARE DISCUSSED.
--- NOTE | 2016-10-20 09:49 | NUR ---
RECIEVED PATIENT SLEEPING WITH BI PAP IN PLACE. SHE SEEMS COMFORTABLE AND IS ARROUSABLE BUT SHE HAS NOT STARTED HER MEAL AND OFFERED TO RETURN WITH HER MEDICATIONS WHEN SHE IS MORE AWAKE. LUNGS ARE DIMINISHED AND BOWEL SOUNDS ARE HYPOACTIVE AND ABDOMEN IS DISTENDED AND SOFT. PATIENT HAS BEEN ON BEDREST AND ASSISTS WITH TURNS AND POSITIONING. DUE TO HER EXTREME MORBID OBESITY THESE TASKS ARE WITH SOME EFFECT ON BREATHING AND PHYSICAL EXHAUSTION. PATIENT HAS EDMEA OF 2 PLUS TO THE LOWER EXTREMITES AND WITH MULTIPLE AREAS OF THE SKIN WITH BREAKDOWN. PATIENT HAS BEEN TREATED WITH THERAHONEY TO THE OPEN AREAS OF THE AXILARY DIANNA AND LOWER BACK. SHE HAS DRYWEAVE APPLIED TO AREAS OF THE ABDOMEN FOLDS AND GROIN. SHE HAS MICODIN POWER APPLIED TO THE FUNGAL AREAS AND NYSTATION CREAM TO OTHER FUNGAL AREAS NOT IN THE FOLDS SUCH THE UPPER THIGH ON THE THIGH. PATIENT HAS BEEN AWAITING TRANFER HOME FOR SOME TIME NOW AND THE HOLD UP IS THE BED AND THIS IS ANOTHER 9 DAYS PENDING. PATIENT NEEDS A BIG BOY BED AND WITH THE ELECTRICAL CONVIENCE AND DUE TO HER PROBLEMS WITH BREAKAGE THIS IS A TRIAL AND ERROR. WITH THE LATEST VERSION HOPEFULLY WILL BE APPROPRIATE FOR HER NEEDS.
[2016-10-20 09:50] VITALS: BP 160/70
--- NOTE | 2016-10-20 13:14 | NUR ---
PATIENT GIVEN 3 UNIT SOF REGULAR ORDEREDED. ALSO GAVE MORPHINE ORDERED FOR PAIN. WILL CONTINUE TO MONITOR CRISTEL INDICATED.
--- NOTE | 2016-10-20 14:39 | NUR ---
PATIENT COMFORTABLE AT THIS TIME AND NO FURTHER COMPLAINTS OF PAIN NOTED. PATIENT HAS BEEN SITTING UP AND WATCHING VIDEOS AND PLAYING GAMES ON HER PHONE.
[2016-10-20 17:20] VITALS: BP 125/70
--- NOTE | 2016-10-20 17:23 | NUR ---
BLOOD SUGAR AT THIS TIME AT 170 AND GAVE THRE UNITS OF REGULAR ORDERED. PATIENT WAS GIVEN PAIN MEDIATION AT AROUND FOUR PM AND STATES GOOD RELIEF NOTED. SHE STATES SHE HAS PAIN ON AND OFF TO THE RIGHT ELBOW. SHE BELIEVES FROM PULLING HER SELF FROM SIDE TO SIDE. .
--- NOTE | 2016-10-20 19:40 | NUR ---
RECD REPORT FROM AM SHIFT AND RECD PT IN BED LYING DOWN, BED IS DEFLATED, PT STATED BED DEFLATED ABOUT AN HOUR AGO, I SPOKE WITH CHARGE NURSE AND SHE STATED COMPANY HAS BEEN NOTIFIED HOWEVER ESTIMATED TIME OF ARRIVAL WAS NOT GIVEN, PT STATED SHE IS STILL IN PAIN AND THAT SHE WAS UNCOMFORTABLE. PLACED 2 PILLOWS BELOW SACRAL AREA, 2 PILLOWS EACH UNDER EACH LOWER EXTREMITY, PT STATED IT WAS MORE COMFORTABLE WITH THE PILLOWS. NO OTHER DISTRESS NOTED OTHER THAN DISCOMFORT AND PAIN. WILL CONTINUE TO MONITOR.
--- NOTE | 2016-10-20 20:30 | NUR ---
TRAILER RENTAL CLERK FROM [employer] CAME TO FIX DEFLATED BED. PT MEDICATED FOR PAIN AT THE MOMENT, WILL REASSESS PAIN. WILL CONTINUE TO MONITOR.
--- NOTE | 2016-10-20 21:15 | NUR ---
PT PLACED IN NADJA LIFT IN ORDER TO FIX MATTRESS WITH ASSIST FROM CHARGE AND 2 OTHER RN'S. REP FROM [facility] INFLATED MATTRESS. DURING INFLATION OF MATTRESS, PT C/O PAIN FROM SANTANA CATH WHILE IN NADJA LIFT. PT PLACED BACK ON BED AFTER INFLATION, HOWEVER BED DEFLATED AGAIN AFTER ONLY A FEW MINUTES. REP FROM [employer] LEFT PREMISES BY THIS TIME. [facility] COMPANY NOTIFIED OF DEFLATED MATTRESS AGAIN AND REP WILL BE COMING BACK TO FIX BED.
--- NOTE | 2016-10-20 21:53 | NUR ---
UPON GIVING PT SHAWNA ROSENBAUM, I, ALONG WITH KAILASH SILVA, DISCOVERED THAT SANTANA CATH HAD COME OUT. WILL HAVE SANTANA CATH INSERTED AGAIN.
[2016-10-20 21:59] VITALS: BP 120/80
--- NOTE | 2016-10-21 00:45 | NUR ---
ATTEMPTED SANTANA CATHETER INSERTION 2X AND UNSUCCESSFUL BOTH TIMES. DR. GLOVER NOTIFIED. PT ABLE TO VOID. WILL CONTINUE TO MONITOR.
--- NOTE | 2016-10-21 02:00 | NUR ---
SUPERVISOR HANGING AND TRIMMING FROM [facility] BROUGHT NEW BED FOR PATIENT. PT TRANSFERRED TO NEW BED. PT RESTING COMFORTABLY WITH NO SIGNS OF DISTRESS. WILL CONTINUE TO MONITOR.
--- NOTE | 2016-10-21 06:39 | NUR ---
PT SLEEPING COMFORTABLY ON BIPAP MACHINE. WILL CONTINUE TO MONITOR.
--- NOTE | 2016-10-21 07:27 | NUR ---
REPORT GIVEN TO NURSE SWEENEY, ALL CARES ENDORSED
--- NOTE | 2016-10-21 07:30 | NUR ---
PT SLEEPING. NO DISTRESS NOTED. PT ON BIPAD WITH SETTINGS IPAP=14, EPAP=7, RATE 10, FIO2=28%. HOB ELEVATED 20 DEGREES. ABD ROUNDED. LBM-8-8-17. SANTANA CATH OUT AT THIS TIME. WILL CHECK WITH MD RE:STATUS. PT OBESE, NO PITTING EDEMA NOTED. SALINE LOCK RFA. IN CONTACT ISOLATION. ON HORSESHOE BEND ROM BED FOR PRESSURE RELIEF. SIDE RAILS UP. CALL LIGHT IN REACH.
--- NOTE | 2016-10-21 08:15 | NUR ---
PT REMAINS ASLEEP WITH BIPAP IN USE. DR ADAM AND MEDICAL TEAM IN ON ROUNDS. CHARGE AND PRIMARY NURSE PRESENT. REVIEWED PLAN OF CARE WITH MEDICAL TEAM. CONTINUE TO AWAIT HOME DELIVERY OF BED.
--- NOTE | 2016-10-21 10:00 | NUR ---
REMAINS ASLEEP ON BIPAP. MEDS HELD AT THIS TIME UNTIL PT MORE ALERT AND AWAKE. PHYSICAL THERAPY HERE TO WORK WITH PT, WILL RESCHEDULE FOR LATER TODAY.
--- NOTE | 2016-10-21 10:45 | NUR ---
PT AWAKE NOW. BIPAP TURNED OFF. PT ALERT. RESP UNLABORED. BREATH SOUNDS CLEAR. HR=88. MED SURG PT. YP=897/88. ABD ROUND AND SOFT, BOWEL TONES PRESENT, LBM=8-8-17 ON LACTULOSE ORDERED. INCONTINENT URINE. PERICARE PROVIDED. REPORTS "IT HURTS WHEN I URINATE BECAUSE THE SANTANA CAME OUT WITH THE BALLOON FULL OF WATER. NOW IT HURTS. I DON'T WANT IT PUT BACK IN UNTIL THE DOCTOR FIGURES OUT WHY IT WAS SO HARD TO PUT BACK IN THIS MORNING." DISCUSSED WITH DR VELA AND KIKE CONCRETE BOOM PUMP OPERATOR NURSE. AGREEABLE TO TAKE AM MEDS AT THIS TIME.
--- NOTE | 2016-10-21 11:22 | NUR ---
PT C/O PAIN GENERALIZED RHEA IN PERINEAL AREA "WHEN URINATES 11/20." STATES "I NEED THE MORPHINE." MED WITH MORPHINE SULFATE 2MG IVP ORDERED.
--- NOTE | 2016-10-21 12:30 | NUR ---
AROUSED FOR LUNCH MEAL. REPORTS "PAIN DOWN TO 7/10." RISS COVERAGE 3 UNITS SQ FOR [id number]=[id number]. CALL LIGHT IN REACH.
--- NOTE | 2016-10-21 14:44 | NUR ---
PT NOTES CLEARED BY RN "PATEL" FOR P.T. TX. FIRST ATTEMPT (1150), PATIENT AWAKE & ALERT IN A SEMI JOLLY POSITION IN BED. PATIENT DECLINED TO PARTICIPATE IN PHYSICAL THERAPY. PATIENT STATED, "I DIDN'T GET TO SLEEP UNTIL 4 AM BECAUSE I HAD A LOT OF ISSUES LAST NIGHT." PATIENT WAS REMINDED THAT PATIENT HAS NOT PARTICIPATED WITH PHYSICAL THERAPY WHEN ATTEMPTED AT PREVIOUS DAYS. PATIENT THEN STATED, "THEY HAD ME IN THE NADJA LIFT ALL BENT AND SCRUNCHED. AND THE SANTANA POP OUT. NOW I HAVE PAIN WHEN I URINATE AND WHEN THEY ATTEMPTED TO PUT IT BACK IN." PATIENT WAS ENCOURAGED TO PARTICIPATE, BUT THEN PATIENT STATED "ABSOLUTELY NOT!" WASHER ENGINEER "SHAUN" WAS MADE AWARE THAT PATIENT HAS PAIN REGARDING URINATION & QUESTIONS REGARDING SANTANA CATHETER. ADDITIONALLY WASHER ENGINEER MADE AWARE PATIENT DECLINED TX. WASHER ENGINEER REQUESTED [employer] TECHNICIAN TO HAVE PATIENT SIGN "REFUSAL TO [facility] MEDICAL TREATMENT FORM" DURING SECOND ATTEMPT OF TX. RETURNED TO PATIENT ROOM AT (1431) FOR P.T. TX. HOWEVER PATIENT IS DECLINING TX. PATIENT WAS THEN REMINDED THAT PATIENT HAS DECLINED TO PARTICIPATE IN THERAPY TX & THE RISK/COMPLICATIONS OF IMMOBILIZATION, BUT PATIENT STILL STATED, "NO!" WHEN FURTHER ATTEMPTED TO EDUCATE PATIENT REGARDING PHYSICAL THERAPY TX, PATIENT DID NOT ACKNOWLEDGE THE PHYSICAL THERAPY STAFF PRESENCE. ADDITIONALLY, WHEN ASKED PATIENT TO SIGN "REFUSAL TO [facility] MEDICAL TREATMENT FORM," PATIENT REFUSED TO SIGN DOCUMENT. MEHUL RAND, PT & ZINA CAMPUZANO PTA PRESENT WHEN PATIENT DECLINED TX & REFUSED TO SIGN FORM. WASHER ENGINEER AWARE & FORM FILED IN PATIENT CHART. IS PROJECT MANAGER EBER BAEZ, SARITA ALSO MADE AWARE. PVE(2) PVE(2)
--- NOTE | 2016-10-21 15:21 | NUR ---
PT INCONTINENT URINE. PERICARE PROVIDED. ABLE TO TURN SELF IN BED INDEPENDANTLY. C/O GENERALIZED BODY ACHES 7/10 RHEA IN DIANNA AREA AFTER SANTANA CATH CAME OUT. STATES "FEELS LIKE GLASS WHEN I URINATE". URINE YELLOW IN COLOR. NO OBVIOUS REDNESS OR CLOT FRAGEMENTS NOTED. REQUESTS MORPHINE SULFATE. MED WITH MORPHINE SULFATE 2MG IVP ORDERED. DECLINES TO BE REPOSITIONED AT THIS TIME. DECLINED WORKING WITH PHYSICAL THERAPY TODAY. BEDSIDE TABLE WITHIN REACH WITH CELL PHONE ON TABLE. REVIEWED NEED FOR INTERDRY DRESSING CHANGE TO FOLDS. STATES "I DONT KNOW, I AM TIRED FROM LAST NIGHT, I AM NOT SO HUNGRY TODAY." INFORMED WOULD LIKE TO DO SKIN CARE AT 1600. VERBALIZED UNDERSTANDING. ABLE TO EAT WATERMELON FROM LUNCH TRAY. TAKES PO FLUIDS WELL. CALL LIGHT IN REACH.
--- NOTE | 2016-10-21 15:45 | NUR ---
SPOKE WITH DR VELA. HE STATES "WILL WE LEAVE OUT THE SANTANA CATHETER." PAIN MANAGEMENT REVIEWED. TO ADJUST MORPHINE DOSE. PT HAS REQUESTED THE 2MG Q4HRS TODAY. TO SPEAK WITH PT THIS AFTERNOON. UPDATED WITH PT REQUEST TO HAVE LACTULOSE INCREASED TO 30ML.
--- NOTE | 2016-10-21 16:00 | NUR ---
PT AWAKE AND ALERT. SKIN CARE PROVIDED TO AXILLA, FOLDS UNDER BREASTS AND ABD FOLDS, PERINEAL FOLDS AND KNEE AND LOWER LEG FOLDS. CLEASED WITH SOAP AND WATER. PAT DRY. THERAHONEY TO ELDON AXILLA. INTERDRY APPLIED. SKIN INTACT UNDER EACH BREAST. SKIN UNDER ABD FOLDS SLIGHT REDNESS TO RIGHT SIDE, SLIGHTLY MORE SO ON LEFT SIDE. SKIN BETWEEN FOLDS ON BLE INTACT. TO THESE AREAS NYSTATIN POWDER APPLIED, THEN INTERDRY DRESSINGS APPLIED TO KEEP SKIN FROM CONTACT. PERINEAL AREA SKIN SHINEY AND DULL RED IN COLOR. KENALOG OINTMENT APPLIED. PT ABLE TO USE BEDPAN AND VOIDED 200CC URINE. ENCOURAGED TO CALL FOR BEDPAN AND NOT USE PADS FOR INCONTINENCE. WE DO NOT WANT HER SKIN ON THE WET PADS. PT VERBALIZED UNDERSTANDING. GRISELDA FOLLOWED CHECKING WITH PT EVERY TWO HOURS TO SEE IF NEEDED TO VOID. BEDPAN OFFERED. STATES "THAT IS WHAT I USE AT HOME." CONTACT ISOLATION MAINTAINED. CALL LIGHT IN REACH. NEEDS MET. REPOSITONED FOR COMFORT. ABLE TO TURN WELL IN BED.
--- NOTE | 2016-10-21 17:00 | NUR ---
LGC=[id number] NO RISS COVERAGE NEEDED. PO FLUIDS AND FOODS ENCOURAGED PT DID TAKE INSULIN LEVIMIR 35 UNITS LAST NIGHT. VERBALIZED UNDERSTANDING.
[2016-10-21 17:09] VITALS: BP 140/80
--- NOTE | 2016-10-21 17:45 | NUR ---
DR VELA HERE. UPDATED WITH PT STATUS. TO GO TO SPEAK WITH PT AT THIS TIME.
--- NOTE | 2016-10-21 19:30 | NUR ---
PATIENT RECEIVED AWAKE, ALERT, AND ORIENTED X 4. NO DISTRESS NOTED. PATIENT C/O 7/10 GENERALIZED PAIN. WILL MEDICATE PER DOCTOR'S PRN ORDER. IV SITE TO RIGHT FOREARM, PATENT AND INTACT. BED IN LOWEST POSITION. CALL LIGHT WITHIN REACH. WILL CONTINUE TO MONITOR.
[2016-10-21 21:08] VITALS: BP 120/70
--- NOTE | 2016-10-22 05:02 | NUR ---
PATIENT RESTED THROUGHOUT THE NIGHT. NO DISTRESS NOTED. MEDICATED PATIENT FOR PAIN WITH MORPHINE X 2 PER DOCTOR'S PRN ORDER. PAIN MANAGED THROUGHOUT THE NIGHT. ALL NEEDS MET. SAFETY AND COMFORT MEASURES MAINTAINED. BED IN LOWEST POSITION. CALL LIGHT WITHIN REACH. WILL CONTINUE TO MONITOR AND ENFORSE TO NEXT SHIFT NURSE.
[2016-10-22 06:28] VITALS: BP 120/80
--- NOTE | 2016-10-22 09:15 | NUR ---
RT AT BEDSIDE GIVING BREATHING TREATMENT
--- NOTE | 2016-10-22 09:30 | NUR ---
SLEEPING, BIPAP IN PLACE. BEATHING EVEN AND UNLABORED, NO DISTRESS NOTED
[2016-10-22 10:00] VITALS: BP 110/74
--- NOTE | 2016-10-22 11:19 | NUR ---
PATIENT SLEEPING BUT EASILY AROUSABLE. S1 ANS S2 HEARD ON AUSCULTATION. PULSES PRESENT, EDEMA TO BLE NOTED. ON BIPAP AT THIS TIME, NO SOB NOTED. LBM 10/22/16. VOIDIED VIA BED SANTANA, REPORTS PAIN WHILE URINATING. HILL ROM BED IN USE. DRESSING TO R. BUTTOCK CDI, SOME REDNESS NOTET TO BILATERAL HIPS, DOES NOT WANT TO HANGE INTERDRY FOR FOLDS AT THIS TIME. REPORTS GENERALIZED PAIN 9/10, GIVEN MORPHINE. IV TO RFA SL, INTACT AND PATENT.PATIENT DID NOT EAT BREAKFAST THIS MORNING
--- NOTE | 2016-10-22 17:15 | NUR ---
VOIDED VIA BEDPAN, REPORTS PAIN WHILE VOIDING, SKIN CDI ON R. BUTTOCK, NO DRESSING. INTERDRY REPLACED UNDER BILATERAL AXILLA AND BREASTS. SOME REDNESS NOTED UNDER AXILLA.
--- NOTE | 2016-10-22 18:57 | NUR ---
LYING IN BED WATCHING TV, NO DISTRESS NOTED, NO SOB NOTED
--- NOTE | 2016-10-22 19:42 | NUR ---
PT SEEN, RESTING IN THE BED, ALERT AND ORIENTED, DENIES HEADACHE OR DIZZINESS, BREATHING EVEN AND UNLABORED, NO SOB, LUNG SOUNDS CLEAR BUT DIMINISHED AT BASE, ON ROOM AIR WITH NO RESP DISTRESS NOTED, BIPAP AT NIGHT, SL TO RFA, PULSES PALPABLE, EDEMA NOTED TO BLE, GENERALIZED WEAKNESS, ON AIR MATTRESS, ABD OBESE WITH ACTIVE BS, NO BM AT THIS TIME, DENIES ABD PAIN, VOIDING WITH BEDPAN WITH BURINING SENSATION, REDNESS TO SKIN FOLD AT BREAST AND ABD, ELDON BUTTOCKS AND THIGH WITH DRY WOUND AND DIANE, ELDON AXILLARY WITH INTERDRY, NO DISTRESS NOTED, WILL KEEP TO MONITOR.
[2016-10-22 21:20] VITALS: BP 140/62
--- NOTE | 2016-10-22 23:36 | NUR ---
PATIENT ASLEEP. BIPAP ON.
--- NOTE | 2016-10-23 01:30 | NUR ---
MADE ROUNDS. PATIENT AWAKE, ON HER PHONE. ON BIPAP. NO DISTRESS.
[2016-10-23 05:39] VITALS: BP 132/56
--- NOTE | 2016-10-23 06:32 | NUR ---
PATIENT ASLEEP. SLEPT THROUGHOUT THE NIGHT. MORNING SUGAR 151. COVERED WITH REGULAR INSULIN SLIDING SCALE, 3 UNITS. COMPLAINTS OF BACK PAIN, MORHPINE GIVEN. ON BIPAP. PATIENT IS CLEAN AND DRY AT THIS TIME.
[2016-10-23 06:52] LABS: BASOPHIL % 0.4 % (0-2); PLATELET COUNT 176 x10^3mcL (130-400)
[2016-10-23 06:55] LABS: RED CELL DISTRIBUTION WIDTH 14.8 % (11.5-14.5)
--- NOTE | 2016-10-23 07:25 | NUR ---
RECEIVED PATIENT ASLEEP AT THIS TIME AFTER MEDICARED FOR PAIN, NO DISTRESS NOTED. REMAIN ON BIPAP; IV INTACT. CONT TO MONITOR.
[2016-10-23 10:05] VITALS: BP 134/68
--- NOTE | 2016-10-23 10:25 | NUR ---
PATIENT AWAKEN AT THIS TIME, C/O 8/ GEN PAIN; ASKING FOR MORPHINE. ALL DUE MEDS GIVEN. REFUSED BREAKFAST. REFUSED WOUND CARE AT THIS TIME. MORPHINE 2MG IVP GIVEN. ICE CHIPS GIVEN PER REQUEST. PATIENT ON BIPAP AND GOES BACK TO SLEEP. PER PATIENT DIDN'T SLEEP WELL LAST NIGHT. CALL LIGHT WITHIN REACH. CONT TO MONITOR.
--- NOTE | 2016-10-23 11:25 | NUR ---
PATIENT AROUSABLE STILL ON BIPAP NO COMPLAINTS. CHECK BS 177 WILL GIVE INSULIN PER PATIENT REQUEST TO GIVE INSULIN WHEN HER LUNCH TRAY HERE. CALL LIGHT WITHIN REACH.
--- NOTE | 2016-10-23 12:54 | NUR ---
Patient awaken for lunch, due meds given. Incont of urine while sleeping; judy care provided. Changed new bed linen. Nystatin powder applied to abdomen/groin folds. Reposition up in bed for lunch. Call light within reach.
--- NOTE | 2016-10-23 16:49 | NUR ---
INCONT OF URINE AND STOOL; DIANNA CARE PROVIDED, CLEANSE WOUND WITH SOAP AND WATER PER PATIENT REQUEST; PATTED DRY APPLIED THERAHONEY TO ELDON AXILLARY/INTERDRY. BREAST/ABDOMEN FOLDS NYSTATIN POWDER/ INTERDRY. PATIENT TOLERATED WELL. CALL LIGHT WITHIN REACH.
--- NOTE | 2016-10-23 17:24 | NUR ---
MEDICATED FOR 8/10 PAIN TO HIPS WITH MORPHINE 2MG IVP AND DUE MEDS GIVEN. TEMP 99.1 COOL MEASURES PROVIDED. PATIENT UPSET STATE BECAUSE "I DON'T HAVE A CATHETER THAT I HAVE FEVER". INFORM PATIENT WILL LET DOCTOR KNOW.
[2016-10-23 17:28] VITALS: BP 126/79
--- NOTE | 2016-10-23 17:35 | NUR ---
NOTIFIED DR. HAWKINS TEMP 99.1 PER PATIENT REQUEST.
--- NOTE | 2016-10-23 18:30 | NUR ---
PATIENT RESTING SAT UP STILL WORKING ON HER DINNER, NO COMPLAINT. STATE PAIN IS RELIEF. NEEDS ANTICIPATED.
--- NOTE | 2016-10-23 19:45 | NUR ---
PT A/O X4. MED-SURG, NO TELE. WEAK PEDAL PULSES PALPATED, EDEMA TO BLE. LUNG SOUNDS DIMINISHED AT THE BASES, DENIES SOB AT THIS TIME. ABD SOFT AND OBESE, BOWEL SOUNDS ACTIVE. AM NURSE REPORTED PT HAD LARGE BM TODAY. PT MAY EXPERIENCE EPISODES OF URINE INCONTINENCE; USES BED SANTANA AT TIMES. GENERALIZED WEAKNESS, ON AIR MATTRESS. PT HAS MULTIPLE WOUNDS. INTERDRY TO AXILLARY BILATERALLY. BILATERAL BUTTOCKS DRY AND TRANSFORMATION CONSULTANT. PT REPORTS GENERALIZED PAIN TO ABD, GROIN AREA, AND SHOULDERS. WILL ADMINISTER PAIN MED ORDERED. SALINE LOCK TO RFA, PATENT AND INTACT. BED IN LOWEST SETTING, CALL LIGHT WITHIN REACH. WILL CONTINUE TO MONITOR.
[2016-10-23 21:05] VITALS: BP 120/60
--- NOTE | 2016-10-23 21:45 | NUR ---
PT COMPLAINING OF 8/10 GENERALIZED PAIN TO ABD, GROIN, AND SHOULDERS. ADMINISTERED MORPHINE ORDERED. WILL MONITOR FOR PAIN RELIEF.
--- NOTE | 2016-10-24 02:30 | NUR ---
PT ASLEEP AT THIS TIME WITH BIPAP IN PLACE. NO SIGNS OF RESP DISTRESS NOTED, NO SIGNS OF PAIN OBSERVED. WILL CONTINUE TO MONITOR.
--- NOTE | 2016-10-24 06:00 | NUR ---
PT REFUSED WOUND CARE AND WOUND PICTURES AT THIS TIME. PT STATES HER "DRESSINGS WERE ALREADY CHANGED, THEY SHOULD HAVE TAKEN PICTURES THEN."
[2016-10-24 06:04] VITALS: BP 130/58
--- NOTE | 2016-10-24 06:25 | NUR ---
PT COMPLAINING OF GENERALIZED 8/10 PAIN. ADMINISTERED MORPHINE ORDERED. PT SLEPT WELL THROUGHOUT THE EVENING, NO RESP DISTRESS OBSERVED. SALINE LOCK TO RFA, PATENT AND INTACT. MORNING WEIGHT-562.7 LBS. WILL ENDORSE CARE TO AM NURSE.
--- NOTE | 2016-10-24 07:00 | NUR ---
ASLEEP, AROUSABLE TO LIGHT TOUCH, DECLINED ASSESSMENT, WOULD LIKE TO CONTINUE TO SLEEP, C-PAP IN PLACE, APPEARS UNDER NO APPARENT DISTRESS, CALL LIGHT WITHIN REACH, WILL CONTINUE TO PROVIDE CARE.
[2016-10-24 08:36] VITALS: BP 126/74
--- NOTE | 2016-10-24 10:26 | NUR ---
CONTINUES TO SLEEP, AROUSABLE TO LIGHT TOUCH, CALL LIGHT WITHIN REACH, UNDER NO APPARENT DISTRESS.
--- NOTE | 2016-10-24 11:10 | NUR ---
ASSISTED WITH BEDPAN, HYGIENE CARE PROVIDED, CALL LIGHT WITHIN REACH, WILL CONTINUE TO PROVIDE CARE.
--- NOTE | 2016-10-24 16:32 | NUR ---
DR VELA MADE AWARE OF HEPARIN DOSE, ORDER DROPPED OFF.
[2016-10-24 17:20] VITALS: BP 132/78
--- NOTE | 2016-10-24 17:41 | NUR ---
C/O GENERALIZED PAIN /10, REQUESTING PAIN MED, WILL ADMIN ORDERED.
--- NOTE | 2016-10-24 19:22 | NUR ---
PATIENT HAS REMAINED CALM THROUGHOUT SHIFT, ALL NEEDS MET, NO SIGNIFICANT CHANGES NOTED, CARE ENDORSED TO NIGHT NURSE.
--- NOTE | 2016-10-24 20:01 | NUR ---
RECEIVED PATIENT IN BED AWAKE WITH NO C/O PAIN AND DISCOMFORT THIS TIME, PATIENT MEDICATED EARLIER BY AM SHIFT FOR PAIN. DIMINISHED BS SATTING AT 98% RA. ACTIVE BS LAST BM 10/23/16 IN LARGE AMOUNT. IV HEPLOCK TO RFA AND FLUSHED WITH NS. WILL CONTINUE TO MONITOR. CALL LIGHT WITHIN REACH.
[2016-10-24 21:27] VITALS: BP 130/82
--- NOTE | 2016-10-24 21:40 | NUR ---
C/O GENERALIZED PAIN MEDICATED WITH MORPHINE 2MG IVP PRESCRIBED. WILL CONTINUE TO MONITOR.
--- NOTE | 2016-10-25 01:09 | NUR ---
SLEEPING THIS TIME AFTER PAIN MEDS WAS GIVEN. WILL CONTINUE TO MONITOR.
--- NOTE | 2016-10-25 03:27 | NUR ---
AWAKE C/O BODY PAIN MEDICATED WITH MORPHINE 2MG IVP.
--- NOTE | 2016-10-25 05:06 | NUR ---
SLEPT FAIRLY C/O BODYPAIN X2 THE ENTIRE SHIFT AND MEDCIATED PRESCRIBED. ALL NEEDS ATTENDED.
[2016-10-25 05:48] VITALS: BP 120/82
--- NOTE | 2016-10-25 07:15 | NUR ---
PT SLEEPING. BIPAP IN PLACE. NO DISTRESS NOTED. CALL LIGHT WITHIN REACH.
--- NOTE | 2016-10-25 12:50 | NUR ---
BLOOD GLUCOSE: 186 COVERED WITH 3 UNITS OF REGULAR INSULIN PER SLIDING SCALE. PT TOLERATED WELL. PT ON NASAL CANULA 2L DENIES SOB, CP. WILL CONTINUE TO MONITOR.
--- NOTE | 2016-10-25 16:12 | NUR ---
PT NOTES CHART REVIEWED AND CLEARED FOR PT BY RN. PATIENT SEEN IN AFTERNOON TO ATTEMPT PARTICIPATION IN THERAPY. UPON ENTERING, PATIENT IN SUPINE RESTING, BUT NOTED NEEDING TO BE CLEANED, QUALITY SYSTEMS TECHNICIAN MADE AWARE AND CLEANED. OFFERED ASSISTANCE FOR QUALITY SYSTEMS TECHNICIAN FOR CLEANUP, BUT PATIENT STATED; "I DON'T LIKE IT WHEN THERE IS SO MANY PEOPLE, I GET ANXIOUS". ATTEMPT MADE TO ENCOURAGE FURTHER PARTICIPATION IN THERAPY, BUT PATIENT DECLINED PT ASSISTANCE AND ONLY QUALITY SYSTEMS TECHNICIAN PRESENT. RETURNED TO PATIENTS ROOM TO ATTEMPT, ENCOURAGE AND EDUCATE ON BENEFITS OF THERAPY, BUT CONTINUES TO DECLINE PARTICIPATION IN THERAPY DESPITE MANY ATTEMPTS GIVEN. PATIENT STATED, "I WANT MY PAIN MEDICATION", DID NOT STATE PAIN LEVEL RN MADE AWARE AND WILL MEDICATE ACCORDINGLY. PATIENT DID NOT EXPRESS IF WILLING TO PARTICIPATE ONCE RECEIVING PAIN MEDICATION. PATIENT APPEARED FRUSTRATED AND DID NOT ACKNOWLEDGE PRESENCE OF PT STAFF, WILL FOLLOW UP WITH PATIENT NEXT SESSION. RN MADE AWARE PVEx1
--- NOTE | 2016-10-25 16:51 | NUR ---
PHYSICAL THERAPY DAILY NOTES CO-SIGN All documentation done by the Climate Change Risk Assessor for 10/25/16 has been reviewed. I agree with the documentation. Reviewed/Co-Signed by: Valery Sousa PT Documentation Done by:SADIA BRISCOE MASS COMMUNICATIONS INSTRUCTOR
[2016-10-25 17:39] VITALS: BP 138/70
--- NOTE | 2016-10-25 17:50 | NUR ---
BLOOD GLUCOSE: 166 COVERED WITH 3 UNITS OF REGULAR INSULIN, PT TOLERATED WELL. PASSED AFTERNOON MEDS. CALL LIGHT WITHIN REACH.
--- NOTE | 2016-10-25 18:15 | NUR ---
PT C/O PAIN AT WOUNDS. MEDICATED PER EMAR PT TOLERATED WELL. PT CURRENTLY ON ROOM AIR WITH EFFORTLESS BREATHING. CALL LIGHT WITHIN REACH.
--- NOTE | 2016-10-25 19:30 | NUR ---
RECEIVED Pt AAOX4 CALM AND COOPERATIVE WITH CARE. DENIES ANY CHEST PAIN. Pt FOUND ON ROOM AIR, NO RESPIRATORY DISTRESS NOTED. DENIES ANY ABDOMINAL DISCOMFORT. VOIDS FREELY USING THE BEDPAN. IV SITE TO RFA IS PATENT AND HEPLOCKED. ALL SKIN FOLDS HAVE BEEN CLEANED BY AM NURSE AND INTERDRY IN PLACE. Pt REPORTS GENERALIZED ACHING PAIN AT 7/10. WILL MEDICATE ACCORDING TO EMAR. Pt RE-ORIENTED TO ROOM AND CALL LIGHT SYSTEM WITHIN EASY REACH. WILL CONTINUE TO MONITOR.
--- NOTE | 2016-10-25 21:07 | NUR ---
I HAVE REVIEWED THE DATA COLLECTION BY MIDLEVEL PROVIDER (NAME): ENTERED ON (DATE/TIME): I CONCUR WITH THE DATA AND ANY EXCEPTIONS OR COMMENTS ARE LISTED BELOW:CARLOS BAXTER
--- NOTE | 2016-10-25 21:40 | NUR ---
Pt MEDICATED WITH NORCO AND XANAX ORDERED. WILL CONTINUE TO MONITOR.
[2016-10-25 21:42] VITALS: BP 120/74
--- NOTE | 2016-10-26 01:20 | NUR ---
MEDICATED BY COVERING RN WITH MORPHINE IV FOR GENERALIZED PAIN AT 10/20. WILL CONTINUE TO MONITOR.
--- NOTE | 2016-10-26 01:30 | NUR ---
AWAKE THIS TIME C/O BODY PAIN MEDICATED WITH MORPHINE 2MG IVP PRESCRIBED.
--- NOTE | 2016-10-26 02:46 | NUR ---
SLEEPING THIS TIME AFTER PAIN MEDS WAS GIVEN.
--- NOTE | 2016-10-26 03:40 | NUR ---
Pt RESTING QUIETLY, WILL CONTINUE TO MONITOR.
--- NOTE | 2016-10-26 05:12 | NUR ---
NO SIGNIFICANT CHANGES NOTED OVERNIGHT, Pt MEDICATED NEEDED FOR PAIN. CONTINUES TO SLEEP. WILL CONTINUE TO MONITOR.
--- NOTE | 2016-10-26 06:01 | NUR ---
C/O BODY PAIN, MEDICATED WITH MORPHINE 2MG IVP PRESCRIBED.
[2016-10-26 06:55] VITALS: BP 110/70
--- NOTE | 2016-10-26 08:00 | NUR ---
WOKE PT UP FOR BREAKFAST SHE HAS SAID SHE WANTS HER BREAKFAST HOT AND WANTS TO BE AWAKENED. WAS SLEEPING ON BIPAP WITH OUT ANY DISTRESS. MED SURG PT. NO TELE. VSS. GENERALIZED JOINT PAIN WHEN PRESENT. COMFORTABLE AT THIS TIME. ON AIR MATTRESS. SL TO RT FA PATENT. RECEIVES HEPARIN SQ. RT PROTOCOL. CONTACT ISOLATION HX MRSA TO WOUND. MORBIDLY OBESE. ABLE TO TURN AND REPOSITION SELF. CALL LIGHT WITHIN REACH.
[2016-10-26 09:20] VITALS: BP 128/58
[2016-10-26 10:38] VITALS: BP 128/58
--- NOTE | 2016-10-26 10:43 | NUR ---
PT SLEEPING WITH BIPAP ON
[2016-10-26 13:39] VITALS: BP 121/62
[2016-10-26 16:38] VITALS: BP 132/61
--- NOTE | 2016-10-26 17:12 | NUR ---
BED BATH, DRESSNG CHANGES TOLERATED WELL.
--- NOTE | 2016-10-26 19:33 | NUR ---
ALERT AND ORIENTED. ASSISTANCE W ADL'S. C/O GENERAL FEELING OF NOT FEELING WELL. PAGED RESIDENT FOR LANCE SALAZAR. FANTASMADC FOR GENERALIZED BODY /JOINT PAIN. SL TO RT FA PATENT. CONTACT ISOLATION FOR HX MRSA WOUND. USES BIPBP. VSS. ON AIR MATTRESS. CALL LIGHT WITHIN REACH.
--- NOTE | 2016-10-26 19:40 | NUR ---
PT AWAKE AND ALERT. AOX4. VERBAL WITH CLEAR SPEECH. NO S/S OF RESPIRATORY DISTRESS NOTED. LUNGS DIMINISHED. ABD ROUND AND SOFT. BOWEL SOUNDS ACTIVE. SKIN WARM AND DRY. IV TO RIGHT FA PATENT AND INTACT. NO S/S OF INFECTION NOTED. NOTED WITH EDEMA TO BLE. PT STATES NOT FEELING VERY WELL. NOTED SLIGHTLY ELEVATED TEMP 99.0 ORAL. REFUSED COOLING MEASURES. REPOSITIONED FOR COMFORT. GOOD PERICARE RENDERED. CALL LIGHT WITHIN REACH. WILL CONTINUE TO MONITOR.
[2016-10-26 22:18] VITALS: BP 130/64
--- NOTE | 2016-10-26 23:15 | NUR ---
RECHECKED PT'S TEMP 100.0. NOTED FACE FLUSHED. STILL CONTINUES TO REFUSE COOLING MEASURES. WILL CONTINUE TO MONITOR. DR. BUCKLEY NOTIFIED AND AWARE.
--- NOTE | 2016-10-27 00:55 | NUR ---
PT RESTING IN BED WITH EYES CLOSED. BREATHING EQUAL AND UNLABORED. BIPAP IN PLACE. NO S/S OF RESPIRATORY DISTRESS NOTED. RESTING WITH RELAXED FACIAL FEATURES. CALL LIGHT WITHIN REACH. WILL CONTINUE TO MONITOR.
--- NOTE | 2016-10-27 08:00 | NUR ---
PT AWAKE ALERT AND ORIENTED X4, ABLE TO MAKE NEEDS KNOWN. VSS. MEDSURG PT. DENIES SOB, SKIN WARM/DRY. GENERALIZED WEAKNESS. DENIES PAIN AT THIS TIME. IV TO THE RFA, SITE IS CDI. CALL LIGHT IN REACH WILL CONTINUE TO MONITOR.
[2016-10-27 10:16] VITALS: BP 120/80
[2016-10-27 11:19] LABS: BASOPHIL % 0.2 % (0-2); PLATELET COUNT 176 x10^3mcL (130-400); RED CELL DISTRIBUTION WIDTH 14.4 % (11.5-14.5)
--- NOTE | 2016-10-27 13:35 | NUR ---
PT C/O PAIN 12/20 TO RLQ RR 18, WILL MEDICATE ACCORDING TO MAR.
--- NOTE | 2016-10-27 16:30 | NUR ---
DR VELA MADE AWARE OF PTS PAIN TO ABD, DR ADLER TO SEE PT.
[2016-10-27 16:39] VITALS: BP 122/60
--- NOTE | 2016-10-27 16:56 | NUR ---
P.T. NOTES/WEEKLY SUMMARY Pt WAS SEEN AWAKE & ALERT IN BED, BiPAP MACHINE ON, CONTACT ISOL PREC OBSERVED; [facility] B[facility]; Pt SOUNDS UPSET & AGITATED, DECLINED P.T. TX MULT TIMES, STATES "I CAN'T DO IT!I'M IN PAIN! I HAVE UTI, MY KIDNEYS ARE NOT WORKING WELL, I HAD THIS LAST MONTH, & NOW I HAVE IT AGAIN, & NO ONE HAS DONE ANYTHING TO FIX IT! I WAS WAITING FOR THE DOCTOR, I THOUGHT YOU WERE THE DOCTOR!THEY SAID THEY CALLED THE DOCTOR BUT I HAVE NOT SEEN HIM!", Pt NOT ESTABLISHING EYE CONTACT W/ P.T. STAFF, LOOKING AWAY TOWARDS HER WINDOW, CALL LIGHT, PHONE, TABLE IN REACH; EXPLAINED RISKS & BENEFITS, Pt APPEARS TO IGNORE P.T. STAFF AT THIS TIME; NURSE AWARE; FOLLOW UP TOMORROW; TX GOALS NOT MET DUE TO LACK OF MOTIVATION, SELF-LIMITING BEHAVIOR; CONT PT ONCE DAILY 2X/WK X 1 WK TRIAL BASIS, EMPHASIZE ON PRESSURE-RELEIVING TECH IN BED, PROMOTING TRUNK CONTROL & MOBILIZATION; FOLLOW UP TOMORROW. PVE
--- NOTE | 2016-10-27 18:44 | NUR ---
PT RESTING IN BED NO SIGNS OF DISTRESS ABLE TO MAKE NEEDS KNOWN, CALL LIGHT IN REACH. WILL CONTINUE TO MONITOR.
--- NOTE | 2016-10-27 19:51 | NUR ---
REC'D PT FROM DAY NURSE GOLDY. AAOX4. LAYING IN BED. ABLE TO MAKE NEEDS KNOWN. NO ACUTE DISTRESS NOTED. MED-SURG, NO TELE. PULSES ARE PRESENT. LUNG SOUNDS ARE DIMINISHED BUT CTA. BREATH SOUNDS ARE EVEN AND UNLABORED. NO RESP DISTRESS NOTED. SKIN IS WARM AND DRY. ABD ROUND AND SOFT, ACTIVE. BLE EDMA NOTED. IV INTACT AND PATENT RFA. CALL LIGHT WITHIN REACH. WILL CONT TO MONITOR.
[2016-10-27 21:54] VITALS: BP 120/70
--- NOTE | 2016-10-27 22:39 | NUR ---
PT COMPLAIN OF BODY ACHES 11/20. GIVEN MORPHINE. WILL CONT TO MONITOR.
--- NOTE | 2016-10-27 23:36 | NUR ---
DR BUCKLEY IN THE ROOM TALKING TO THE PT COMPLAINING PAIN. PT GIVEN NORCO. WILL CONT TO MONITOR.
--- NOTE | 2016-10-28 02:45 | NUR ---
PT COMPLAINS OF PAIN AND INSOMNIA. WILL BE GIVING PAIN AND TARAZODONE.
--- NOTE | 2016-10-28 03:57 | NUR ---
PT IS CURRENTLY ASLEEP AND RESTING WELL. NO S/S OF RESPIRATORY DISTRESS NOTED. IV INTACT AND PATENT. WILL CONT TO MONITOR.
--- NOTE | 2016-10-28 05:53 | NUR ---
PT GIVEN SCHEDULE MEDS. WILL CONT TO MONITOR.
[2016-10-28 06:20] VITALS: BP 110/78
--- NOTE | 2016-10-28 06:24 | NUR ---
PT PERIODICALLY SLEPT THROUGHOUT THE SHIFT. MAKE NEEDS KNOWN. ALL NEEDS MET AND ATTENDED TO. NO ACUTE DISTRESS OR SIGNIFICANT CHANGES NOTED. PT REFUSED TO HAVE DRESSING CHANGED. IV INTACT AND PATENT, HEP LOCK. WILL ENDORSE ALL CONTINUITY CARE TO ONCOMING NURSE.
[2016-10-28 09:10] VITALS: BP 142/78
--- NOTE | 2016-10-28 09:22 | NUR ---
PATIENT REPORT OF GENERALIZED BODY ACHE THAT WAS DESCRIBED MODERATE. NO REPORT OF NAUSEA OR VOMITING. RESPIRATION IS EVEN AND UNLABORED. VITAL SIGNS WERE STABLE. ON BIPAP AT THIS TIME BECAUSE SHE REPORTED SHE NEEDS TO SLEEP MORE THIS MORNING SINCE SHE DID NOT SLEEP GOOD LAST NIGHT. NORCO 1 TAB GIVEN PO TO RELIEVE PAIN. CONTINUE TO MONITOR.
--- NOTE | 2016-10-28 16:16 | NUR ---
SLEEPING FOR MOST OF THE DAY AND DOES NOT WANT TO BE BOTHERED. REFUSED BED BATH THIS MORNING. INFORMED NURSE THAT SHE WILL CALL WHEN SHE NEEDS US.
[2016-10-28 23:03] VITALS: BP 118/82
--- NOTE | 2016-10-29 01:00 | NUR ---
REPOSITION PER PROTOCOL. OFFERED BED SANTANA, PT VOIDED 300ML. ALL NEEDS ATTENDED. WILL COMTINUE TO MONITOR.
--- NOTE | 2016-10-29 06:00 | NUR ---
NO S/S OF DISTRESS. PT SLEPT THE NOGHT COMFORTABLY. ALL PT NEEDS ATTENDED. PT IS IN A STABLE CONDITION. WILL ENDORSE THE CARE TO DAY NURSE.
--- NOTE | 2016-10-29 07:02 | NUR ---
REPORT RECEIVED FROM NOC SHIFT RN, UPDATES PROVIDED, ALL QUESTIONS ANSWERED ALL CONCERNS ADDRESSED. WILL ASSUME CARE AND ASSESS PATIENT SHORTLY.
--- NOTE | 2016-10-29 07:15 | NUR ---
PATIENT ASSESSED AT THIS TIME, PATIENT RESTING CALMLY IN BED AT THIS TIME ON BIPAP. PATIENT GCS IS 15 AT THIS TIME. PATIENT IS NOT ON SEDATION. PATIENT HAS NO HX OF CVA OR ALZHEIMERS BUT HAS HX OF DEPRESSION. TRACHEA IS MIDLINE, NO SCLERAL EDEMA NOTED. NO TUBE FEEDING IN PLACE. PATIENT IS ON BIPAP. LUNG SOUNDS ARE CLEAR BILATERALLY. CHEST RISES SYMMETRICALLY. SKIN COLOR IS CONSISTENT WITH ETHNICITY WITH DUSKY SKIN NOTED TO BLE. CAP REFILL IS <3 SECONDS BILATERALLY. PERIPHERAL PULSES ARE MODERATE BILATERALLY. BOWEL SOUNDS ARE ACTIVE N ALL 4 QUADRANTS, NO BM NOTED. NO SANTANA IN PLACE. PATIENT IS OBESE, NO N/V NOTED. DIABETIC DIET ORDERED. WILL CONTINUE TO MONITOR PATIENT.
[2016-10-29 08:48] VITALS: BP 118/82
[2016-10-29 09:30] VITALS: BP 140/90
--- NOTE | 2016-10-29 10:15 | NUR ---
DR. MART ROUNDING WITH RESIDENTS AT THIS TIME. UPDATES PROVIDED, NO NEW ORDERS RECEIVED.
--- NOTE | 2016-10-29 16:39 | NUR ---
PATIENT USED BEDPAN AT THIS TIME. LARGE STOOL AND URINE NOTED. PATIENT PADS CHANGED. WILL CONTINUE TO MONITOR PATIENT.
[2016-10-29 17:40] VITALS: BP 138/95
--- NOTE | 2016-10-29 18:42 | NUR ---
PATIENT CHANGED TO ANOTHER BARIATRIC BED AT THIS TIME DUE TO PREVIOUS BED HAVING ALARM ISSUES.
--- NOTE | 2016-10-29 19:08 | NUR ---
REPORT GIVEN TO NOC SHIFT RN. UPDATES PROVIDED, ALL QUESTIONS ANSWERED ALL CONCERNS ADDRESSED. WILL ENDORSE CARE.
--- NOTE | 2016-10-29 19:10 | NUR ---
RECEIVED REPORT FROM CHETAN PARRA. ALL CARE ENDORSSED.
--- NOTE | 2016-10-29 19:40 | NUR ---
RECEIVED PT IN TALKING ON PHONE. AND C/O OF HER NEED TO PAIN MEDS. NORCO PO GIVEN. AND PT STILL MAID. PT IS A/OX4. CLEAR SPEECH. MORBID OBESITY. IN BIG BOY BED. RES IS EVEN AND UNLABORED. BIPAP PRN. BOWEL SOUND HYPOACTIVE X4Q. REDNESS TO BILAT TIGHS AND REDNESS TO ABD FOLD AND UNBED BREAST AND ARM RITTS CREAM AND POWDER AND INTERDRY APPLIED. ON CONTACT ISO FOR MRSA WOUNDS. SAFETY IN PLACE, CALL LIGHT WITHIN REACH. WILL CONTINUE TO MONITOR.
[2016-10-29 22:37] VITALS: BP 136/86
--- NOTE | 2016-10-30 00:18 | NUR ---
RECHECK WITH PT. PT IS RESTING IN BED. WATCHING TV. DENIES PAIN. ALL NEEDS ATTENDED. WILL CONTINUE TO MONITORING.
--- NOTE | 2016-10-30 02:00 | NUR ---
RECHECK WITH PT. PT IS RESTING IN BED WATCHING. TV. REPOSITION PER PROTOCOL.
--- NOTE | 2016-10-30 05:00 | NUR ---
ON BIPAP, SLEEPING AT TIME. DENIES PAIN.
[2016-10-30 05:58] VITALS: BP 140/87
--- NOTE | 2016-10-30 07:45 | NUR ---
PT RECEIVED. AT THIS TIME THE PATIENT IS RESTING IN BED. PATIENT DOES NOT APPEAR IN ACUTE DISTRESS AT THIS TIME. PT IS ON BIPAP MACHINE. SHE IS AAO X4. ABLE TO MAKE NEEDS KNOWN. PT IS MED SURG, NO TELE AT THIS TIME. PT IS MORBIDLY OBESE. DENIES NAUSEA AND VOMITING AT THIS TIME. DENIES PAIN. ALL SAFETY MEASURES IN PLACE. CALL LIGHT WITHIN REACH. WILL CONTINUE TO MONITOR.
[2016-10-30 08:35] VITALS: BP 142/76
--- NOTE | 2016-10-30 09:02 | NUR ---
PT WAS MEDICATED WITH NORCO FOR MODERATE PAIN (SEE EMAR). AT THIS TIME THE PATIENT IS RESTING IN BED. DENIES ANY FURTHER NEEDS. PATIENT STATES SHE WANTS TO SLEEP. WILL CONTINUE TO MONITOR.
--- NOTE | 2016-10-30 16:00 | NUR ---
PATIENT WAS GIVEN A BED BATH. TOLERATED PROCEDURE WELL. PATIENT HAD NYSTATIN APPLIED TO FOLDS IN ABDOMEN, UNDER THE BREAST, AND ON THE LEGS, ALONG WITH INTERDRY DRESSING PER PATIENT REQUEST. PATIENT ALSO HAD THERAHONEY, NYSTATIN, AND INTERDRY DRESSING APPLIED UNDER THE ARMPITS. NEW BED SHEETS AND NEW GOWN WERE ALSO PROVIDED. ALL SAFETY MEASURES ARE IN PLACE. WILL CONTINUE TO MONITOR PATIENT.
[2016-10-30 17:50] VITALS: BP 138/70
--- NOTE | 2016-10-30 19:15 | NUR ---
REPORT GIVEN TO SANDER HAND NURSE. AT THE MOMENT PATIENT IS RESTING IN BED. NO SIGNS OF ACUTE DISTRESS ARE PRESENT. PATIENT DENIES PAIN. PATIENT DENIES ANY FURTHER NEEDS. ALL SAFETY MEASURES ARE IN PLACE. WILL CONTINUE TO MONITOR.
--- NOTE | 2016-10-30 19:16 | NUR ---
PT REPORT RECEIVED FROM DAY SHIFT RN, QUESTIONS AND CONCERNS ADDRESSED BEDSIDE.
--- NOTE | 2016-10-30 19:50 | NUR ---
RECEIVED PT LAYING IN BED, A&O X4 FOLLOWS COMMANDS, ABLE TO MAKE NEEDS KNOWN. PT IS ON RA, EVEN AND UNLABORED BREATHING, SYMMETRICAL CHEST EXPANSION NOTED, PT USES BIPAP AT NIGHT. NONPITTING EDEMA NOTED TO BLE, CAP REFILL IMMEDIATE, MODERATE PULSES BUE, WEAK PULSES BLE. ABDOMEN OBESE, ON GERATRIC BED, ABLE TO TURN AND REPOSITION SELF IN BED, SKIN WARM/DRY, REDNESS TO ABDOMINAL/ARMPIT/BREAST FOLDS, INTERDRY DRESSING PLACE. IV TO RFA INFUSING NS AT 100 ML/HR. WILL MONITOR PT CLOSELY.
[2016-10-30 22:00] VITALS: BP 110/75
--- NOTE | 2016-10-30 23:00 | NUR ---
PT IS ON BIPAP AT THIS TIME.
--- NOTE | 2016-10-31 04:08 | NUR ---
PT RESTING IN BED COMFORTABLY AT THIS TIME, NO S/S OF PAIN OR DISTRESS NOTED.
[2016-10-31 06:48] VITALS: BP 108/74
--- NOTE | 2016-10-31 07:30 | NUR ---
PT AWAKE ALERT AND ORIENTED X4 ABLE TO MAKE NEEDS KNOWN. BARIATRIC BED IN PLACE, PT DENIES SOB OR CP AT THIS TIME. STATES PAIN IS AT A TOLERABLE LEVEL. SKIN IS CDI WITH AREAS OF REDNESS TO ABD FOLDS AND UNDERARMS. INTERDRY IN PLACE. PT IS CALM AND COOPERATIVE WITH CARE. WILL CONTINUE TO MONITOR. CALL LIGHT IN REACH.
[2016-10-31 10:35] VITALS: BP 130/78
--- NOTE | 2016-10-31 12:41 | NUR ---
PT RESTING IN BED NO SIGNS OF DISTRES CALL LIGHT IN REACH WILL CONTINUE TO MONITOR.
--- NOTE | 2016-10-31 13:06 | NUR ---
PT RESTING IN BED NO SIGNS OF DISTRESS, CALL LIGHT IN REACH WILL CONTINUE TO MONITOR.
--- NOTE | 2016-10-31 14:12 | NUR ---
Follow-up Nutrition Assessment Dx:Possible sepsis Labs: (10/27) H/H:10.3/32L Meds: Dulcolax, Humulin, Lactines, Levemir, NS IVF, Vit C, Heparin. Diet: [facility] Weights: (10/24)562#, 255kg (10/28)573#, 260kg Skin: sacral ulcer bandaged without leakage, no pus or blood noted around bandage sites. Multiple pressure ulcer and redness along posterior aspect of BL thighs. Per RN, pt came in with sacral wound which is now healed. Edema: non pitting edema noted to BLE, Last BM: 10/30 Pt admitted with sepsis 2/2 BLE cellulits with Group C Stret Bacteremia s/p excisional debridement of stage # decubitis sacral ulcer with no abscess. Per progress note 10/30, pt with no acute events overnight. Pt continues to eat, drink, urinate and defacate well. Pt is till waiting for a bed. During visit, obserbed pt sleeping and on BiPAP machine. Per RN, pt with good PO intake and no GI issues. Estimated Nutritional Needs unchanged from prior assessment: ideal body weight 68kg. Energy: 1700-20470qjik/day (25-30kcal/kg for adult maintenance) Protein: 82-102g/day (1.2-1.5kg for maintenance and skin integrity) Fluid: 2040ml/day (1ml/kcal) or per doctor Nutrition Diagnosis 1. Morbid obesity related to sedentary lifestyle as evidenced by BMI 84.8kg/m2 (ongoing) 2. Altered nutrition lab values related to elevated blood glucose and A1c:6.7. Intervention 1. Continue with current diet order, [facility] 60g Monitor/Evaluate Previous goal: PO intake at least 75% est needs (met) Goal: PO intake at least 75% of estimated needs Monitor: PO intake, Labs, GI function F/U in 14 days as low risk:11/14
--- NOTE | 2016-10-31 14:13 | NUR ---
1. Continue with current diet order, [facility] 60g
--- NOTE | 2016-10-31 14:47 | NUR ---
PT RESTING IN BED NO SIGNS OF DISTRESS CALL LIGHT IN REACH WILL CONTINUE TO MONITOR.
--- NOTE | 2016-10-31 15:42 | NUR ---
PT RESTING IN BED EVEN UNLABORED RESPIRATIONS, NO SIGNS OF DISTRESS, DENIES CP OR SOB AT THIS TIME. CALL LIGHT IN REACH WILL CONTINUE TO MONITOR.
[2016-10-31 17:34] VITALS: BP 140/68
--- NOTE | 2016-10-31 20:00 | NUR ---
RECEIVED PT IN BED AWAKE, ALERT AND ORIENTED. PULSES +2 BUE AND +1 BLE. NON PITTING EDEMA NOTED. LUNGS CLEAR WITH DIMINISHED BASES. PT ON BIPAP OVERNIGHT. BLWE SOUNSD PRESENT. PT VOIDS WITHOUT DIFFICULTY WITH A BEDPAN. PT WITH GENERALIZED WEAKNESS. NO C/O PAIN NOTED AT THIS TIME. IV TO THE RFA LEAKING AND WILL NEED TO REPLACE. SEE CLIPPER AND TURNER FOR FURTHER DETAILS AND SKIN ASSESSMENT. INSTRUCTED PT TO USE CALL LIGHT IF NEEDS ASSISTANCE WITH ANYTHING. CALL LIGHT IN REACH. WILL MONITOR.
[2016-10-31 22:15] VITALS: BP 152/81
--- NOTE | 2016-10-31 23:00 | NUR ---
PT RESTING IN BED AT THIS TIME. NO COMPLAINTS NOTED AT THIS TIME. WILL MONITOR.
--- NOTE | 2016-11-01 00:56 | NUR ---
PT C/O GENERALIZED PAIN 10/10, MORPHINE GIVEN AT THIS TIME IVP. RT CALLED AT THIS TIME PER PT REQUEST FOR BIPAP TO BE PLACED. WILL MONITOR PT.
--- NOTE | 2016-11-01 01:27 | NUR ---
NEW IV STARTED IN THE LFA BY KAILASH COREY. AND RFA LEAKING IV REMOVED AT THIS TIME.
--- NOTE | 2016-11-01 04:30 | NUR ---
PT SLEEPING AT THIS TIME WITH NO DISTRESS NOTED. RESPIRATIONS EVEN AND UNLABORED. WILL MONITOR.
[2016-11-01 05:49] VITALS: BP 142/78
--- NOTE | 2016-11-01 06:14 | NUR ---
PT RESTING COMFORTABLY, NO DISTRESS NOTED. PT STABLE AT THIS TIME, WILL ENDORSE TO THE A.M SHIFT NURSE.
--- NOTE | 2016-11-01 06:51 | NUR ---
PT REFUSES TO BE TURNED AND BATHED AT THIS TIME. PT STATES SHE WOULD LIKE TO SLEEP MORE AND BATH AT A LATER TIME THIS A.M.
--- NOTE | 2016-11-01 07:30 | NUR ---
PT SEEN RESTING WITH BIPAP ON. PT NO COMPLAIN OF PAIN AT THIS TIME. PT BREATHING EVEN, UNLABORED. IV SITE PATENT, INTACT. IVF INFUSING WELL.
--- NOTE | 2016-11-01 08:30 | NUR ---
ASSIST PT TO USE BED SANTANA. PT IS ABLE TO TURN HERSELF. URINE COLOR CLARK. REDNESS ON BUTTOCK NOTED. ELDON THIGH SPOTED REDNESS AND DRY SCALLY SKIN NOTED. PT REFUSED TO CHANGE SOILED PAD AT THIS TIME.
[2016-11-01 09:03] VITALS: BP 130/75
--- NOTE | 2016-11-01 18:07 | NUR ---
PT IS EATING DINNER, COMPLAIN OF PAIN, MORPHINE GIVEN. PT BREATHING ON O2 2L VIA NC, EVEN, UNLABORED. PT WOULD LIKE TO BE CLEANED AFTER EATING. IV SITE PATENT, INTACT. IVF INFUSING AT TKO RATE.
[2016-11-01 18:25] VITALS: BP 128/68
--- NOTE | 2016-11-01 20:00 | NUR ---
PT IS AWAKE AND ORIENTED X4. PT DENIES GURROLA OR DIZZINESS AT THIS TIME. PT IS CALM AND COOPERATIVE WITH NURSING CARE. PT DENIES CHEST PAIN OR PRESSURE AT THIS TIME. PT IS A MED/SURG PT. PT HAS PALAPBLE PULSES BILAT ALL EXTREMITIES. EDEMA NOTED TO BLE. PT DENIES SOB. RESPIRATIONS EVEN AND UNLABORED ON ROOM AIR. PT HAS DIMINISHED BASES. PT ABD ROUND, SOFT, AND NONTENDER. PT HAS ACTIVE BOWEL SOUNDS. PT DENIES ABD PAIN AT THIS TIME. PT HAS GENERALIZED WEAKNESS AND REQUIRES ASSISTANCE WHEN TURNING. PT VOIDS FREELY AND UTILIZES BED SANTANA. PT HAS REDNESS NOTED TO ABD FOLDS AND BREAST FOLDS WELL BUTTOCKS, AND BLANCHABLE. PT HAS IV TO RFA AND TKO AT THIS TIME. IV PATENT WITH NO SIGNS OF INFILTRATION. PT DENIES PAIN OR DISCOMFORT AT THIS TIME. NO SIGNS OF DISTRESS. WILL CONTINUE TO [facility].
[2016-11-01 21:47] VITALS: BP 110/68
[2016-11-01 21:59] VITALS: BP 121/58
--- NOTE | 2016-11-01 22:02 | NUR ---
PT REPORTS GENERALIZED WEAKNESS WELL ANXIETY. PRN MORPHINE GIVEN IVP ORDERED AND XANAX GIVEN ORDERED.
--- NOTE | 2016-11-01 22:30 | NUR ---
PT REMAINS IN BED AT THIS TIME AWAKE WATCHING TELEVISION. PT REPORTS PAIN BUT TOLERABLE AT THIS TIME. NO SIGNS OF DISTRESS. WILL CONTINUE TO MONITOR.
--- NOTE | 2016-11-02 01:01 | NUR ---
PT IS CALM AND RESTING IN BED WITH EYES CLOSED AT THIS TIME. WILL CONTINUE TO MONITOR.
--- NOTE | 2016-11-02 03:30 | NUR ---
PT REMAINS IN BE AT THIS TIME RESTING WITH EYES CLOSED. NO SIGNS OF PAIN OR DISTRESS. WILL CONTINUE TO MONITOR.
--- NOTE | 2016-11-02 03:51 | NUR ---
PT C/O GENERALIZED PAIN AND RECEIVED PRN MORPHINE IVP, GIVEN ORDERED. WILL CONTINUE TO MONITOR.
[2016-11-02 05:58] VITALS: BP 111/60
--- NOTE | 2016-11-02 06:31 | NUR ---
PT IS CALM AND COOPERATIEV WITH NURSING CARE. PT DENIES SOB. RESPIRATIONS EVEN AND UNLABORED ON USE OF BIPAP. PT DENIES CHEST PAIN OR PRESSURE. PT SLEPT THROUGHOUT THE EVENING. ALL PT NEEDS MET. NO SIGNS OF DISTRESS. WILL ENDORSE TO DAY NURSE.
--- NOTE | 2016-11-02 07:05 | NUR ---
BEDSIDE REPORT RECEIVED FROM [facility] SHIFT NURSE AT THIS TIME. PATIENT ASLEEP, BIPAP IN PLACE, NO SIGNS OF DISTRESS NOTED, EASILY AROUSED VIA VERBAL STIMULI. ALL SAFETY MEASURES IN PLACE, WILL CONTINUE TO MONITOR.
--- NOTE | 2016-11-02 08:00 | NUR ---
PATIENT ASLEEP, EASILY AROUSED VIA VERBAL STIMULI, NO SIGNS OF DISTRESS NOTED, DENIES CHEST PAIN, NO DIZZINESS. BIPAP IN PLACE, IV TO RFA WNL, NO REDNESS NOR INFILTRATION NOTED. PATIENT ON SPECIALTY BARIATRIC BED/AIR MATTRESS. ALL SAFETY MEASURES IN PLACE, WILL CONTINUE TO MONITOR.
--- NOTE | 2016-11-02 08:36 | NUR ---
ROUNDS MADE AT THIS TIME WITH MD TEAM, CHARGE NURSE HOOD, AND DR BELL. PATIENT AWAKE, ALERT, NO SIGNS OF DISTRESS NOTED. COMPLAINT OF LEFT HIP WHEEPING, MD TEAM TO ASSESS. ALL SAFETY MEASURES IN PLACE, WILL CONTINUE TO MONITOR.
[2016-11-02 09:51] VITALS: BP 111/60
--- NOTE | 2016-11-02 11:45 | NUR ---
PATIENT ASLEEP, NO SIGNS OF DISTRESS NOTED, BIPAP IN PLACE. ALL NEEDS ATTENDED TO, ALL SAFETY MEASURES IN PLACE, WILL CONTINUE TO MONITOR.
--- NOTE | 2016-11-02 12:45 | NUR ---
MEETING WITH MEDICINE TEAM AT THIS TIME. PHYSICAL THERAPY, DIETARY, SILK PRINTER JOVON CAPELLAN, DR BELL, DR VELA, AND JAZZ BOCANEGRA PRESENT. ALL QUESTIONS AND CONCERNS ADDRESSED. DAUGHTER TAHIR AT BEDSIDE, ALL SAFETY MEASURES IN PLACE, WILL CONTINUE TO MONITOR.
--- NOTE | 2016-11-02 13:22 | NUR ---
P.T. NOTES THIS P.T. PARTICIPATED IN A FAMILY CONFERENCE WITH HARIT, , [facility] DIETITIAN AND JERILYN PASTOR FOR DC GOALS OF PATIENT AND FAMILY, TAHIR DAUGHTER WAS PRESENT AT BEDSIDE. IN REGARDS TO REHAB, PT STATD LAST SHE WALKED AND STOOD UP WAS 1.5YEARS AGO, AND IN JULY OF THIS YEAR, AN MD TOLD HER SHE NEEDS TO LOSE 50 [id number] TO BE ABLE TO STAND ON THE LE (GOAL IS 525LBS). PT STATES AT HOME SHE HAS HOME HEALTH THERAPY WHO DOES EXERCISE FOR HER AND GETS HER STRENGTH BUT HE DOES NOT PERFORM ANY FUNCTIONAL OUT OF BED ACTIVITY WITH HER. AT HOME PT STATES SHE DOES HER TOILETING IN A BED SANTANA AND FAMILY THEN DOES HER PERINEAL CARE. TAHIR SAID IF PT COULD GO TO [facility] FOR REHAB THAT WOULD BE A GOOD OPTION. TO WHICH THIS P.T. DISCUSSED IN REGARDS TO PATIENT'S MULTIPLE REFUSALS WITH THERAPY DURING HER HOSPITAL STAY. PT NOW IN AGREEMENT THAT SHE WILL PARTICIPATE WITH EXERCISES WITH THERAPIST, NOT WILLING TO SIT ON EDGE OF BED, BUT THIS P.T. STATED WE CAN PERFORM MODIFED EXERCISE, LONG SITTING IF HER GOAL IS TO DC TO SNF IF ABLE AND IF TO TRANSITION TO HOME. PATIENT WAS AGREEABLE AND SAID SHE WILL PARTICIPATE WITH THERAPY. PVE X3
--- NOTE | 2016-11-02 16:45 | NUR ---
BED BATH PROVIDED AT THIS TIME. TOLERATED WELL, DRESSING APPLIED TO LEFT HIP DUE TO WEEPING, INTER DRY AND NYCOSTATIN POWDER APPLIED TO ALL ABDOMINAL/BREAST/ARM PIT FOLDS. LINEN AND GOWN CHANGED, ALL NEEDS MET, ALL SAFETY MEASURES IN PLACE, WILL CONTINUE TO MONITOR.
--- NOTE | 2016-11-02 18:09 | NUR ---
LYUBOV CLIFTON AT BEDSIDE TO REPLACE FOAM MATTRESS WITH AIR MATTRESS, WILL CONTINUE TO MONITOR.
[2016-11-02 18:53] VITALS: BP 138/72
--- NOTE | 2016-11-02 19:30 | NUR ---
REC'D PT FROM DAY NURSE. PT AAOX4, SPEECH CLEAR, FOLLOWS COMMANDS. NO SIGNS OF DISTRESS NOTED. MED SURG PT, NO TELE. DENIES CP, DIZZINESS, OR PALPITATIONS. DENIES RESP DISTRESS OR SOB. BREATHING EVEN/UNLABORED ON RA. C/O COUGH WITH GREEN SPUTUM. RT TO GIVE BREATHING TREATMENT. PERIPHERAL PULSES PALPABLE. EDEMA BLE. DENIES ABD PAIN OR TENDERNESS. C/O NAUSEA. ZOFRAN GIVEN PER ORDER. VOIDING WITH USE OF BEDPAB. GEN WEAKNESS, BEDREST. WOUND TO R BACK, DRESSING TO L THIGH WITH DRAINAGE, R ABD FOLD WITH OPTIFOAM, REDNESS TO BUTTOCKS, ABD FOLD AND BREAST FOLDS- INTERDRY WITH MYCOSTATIN. C/O PAIN 8/10 TO LOWER BACK, WILL GIVE PAIN MED WHEN TO. IV TO RFA FLUSHED AND PATENT. CALL LIGHT WITHIN REACH, BED AT LOWEST POSITION. WILL CONTINUE TO MONITOR.
--- NOTE | 2016-11-02 22:02 | NUR ---
BS 122. LEVEMIR 40 UNITS GIVEN. YOGURT AND FRUIT FROM [employer] EATEN SNACK. REFUSED TOPICAL OINTMENTS "THEY JUST DID IT BEFORE SHIFT CHANGE." WILL CONTINUE TO MONITOR.
[2016-11-02 22:07] VITALS: BP 126/58
--- NOTE | 2016-11-02 23:40 | NUR ---
PT C/O ANXIETY. XANAX GIVEN PER ORDER. PT PUT ON BIPAP FOR TONIGHT. NO OTHER COMPLAINTS AT THIS TIME. CALL LIGHT WITHIN REACH, BED AT LOWEST POSITION. WILL CONTINUE TO MONITOR.
--- NOTE | 2016-11-03 01:03 | NUR ---
PT C/O UNEXPECTED SHARP PAIN TO BACK. ASSESSED PT. DRESSING FROM L HIP DISLODGED TO BACK. L HIP WOUND WEEPING CLEAR, YELLOWISH FLUID. ABD DRESSING X3 TO L HIP APPLIED AND TAPED. NYSTATIN POWDER APPLIED TO FOLDS OF BACK, INTERDRY IN PLACE. MADE COMFORTABLE IN BED. BIPAP REAPPLIED. CALL LIGHT WITHIN REACH, BED AT LOWEST POSITION. WILL CONTINUE TO MONITOR.
--- NOTE | 2016-11-03 02:03 | NUR ---
PT RESTING IN BED WITH EYES CLOSED. NO SIGNS OF DISTRESS NOTED. BREATHING EVEN/UNLABORED. BIPAP IN PLACE. CALL LIGHT WITHIN REACH, BED AT LOWEST POSITION. WILL CONTINUE TO MONITOR.
[2016-11-03 06:13] VITALS: BP 130/60
--- NOTE | 2016-11-03 06:22 | NUR ---
PT RESTING IN BED WITH EYES CLOSED. BIPAP IN PLACE. NO COMPLAINTS AT THIS TIME. BS 127. MANUAL BLOOD PRESSURE TAKEN PER REQUEST. REFUSED TO REDRESS WOUND TO L HIP. WANTED TO REST. NO SIGNIFICANT CHANGES DURING SHIFT. WILL ENDORSE TO DAY NURSE.
--- NOTE | 2016-11-03 07:20 | NUR ---
RECEIVED PT IN BED, A/A/O X 4, CALM, COOPERATIVE. DENIES PAIN OR DISCOMFORT AT THIS TIME. ELDON RADIAL AND PEDAL PULSES PALPABLE, BLE EDEMA +1, CAP REFILL < 3 SECS. BUL / BLL DIM, CHEST RISING EVENLY, CURRENTLY USING BIPAP, SPO2 96%. ABD DISTENDED, NORMOACTIVE BOWEL SOUNDS X 4 QUADS, LAST BM 11/02/16. VOIDS FREELY, NO DYSURIA. GENERALIZED WEAKNESS. L THIGH WEEPING, WOUND ON R UPPER POST THIGH, OPTIFOAM TO R ABD FOLD, REDNESS TO BUTTOCK, ABD, AND ELDON BREAST FOLD. IV TO RFA CDI, RUNNING NS TKO. SIDE RAILS UP X 2, CALL LIGHT WITHIN REACH. WILL CONTINUE TO MONITOR.
--- NOTE | 2016-11-03 08:53 | NUR ---
DR GREENE, RESIDENTS, CHARGE NURSE, AND ASSIGNED NURSE CAME IN TO SEE PT; MD DISCUSSED CARE PLAN FOR PT; ALL QUESTIONS WERE ANWERED; PT VERBALIZED UNDERSTANDING.
[2016-11-03 09:00] VITALS: BP 111/71
--- NOTE | 2016-11-03 13:34 | NUR ---
PT IN BED, RESTING COMFORTABLY. PT ON BIPAP, NO RESPIRATORY DISTRESS, PAIN, OR DISCOMFORT NOTED. WILL CONTINUE TO MONITOR.
--- NOTE | 2016-11-03 17:10 | NUR ---
PT IN BED, WATCHING SHOWS ON HER CELL PHONE. WOUND DRESSINGS WERE CHANGED. A/A/O X 4, CALM, COOPERATIVE. NO RESPIRATORY DISTRESS, PAIN, OR DISCOMFORT NOTED. WILL ENDORSE TO NOC SHIFT.
[2016-11-03 17:45] VITALS: BP 116/68
--- NOTE | 2016-11-03 19:40 | NUR ---
RECEIVED REPORT FROM DAY SHIFT RN. PT AWAKE, ALERT AND ORIENTED X 3. NO SOB ON ROOM AIR. NO DISTRESS NOTED. IV ON LFA, INTACT. SAFETY MEASURES IN PLACE. INSTRUCTED PT TO CALL IF ASSISTANCE IS NEEDED. CALL LIGHT WITHIN REACH.
[2016-11-03 22:15] VITALS: BP 118/60
--- NOTE | 2016-11-03 22:35 | NUR ---
PT C/O GENERALIZED PAIN, PERCOCET GIVEN AND XANAX FOR ANXIETY. WILL CONTINUE TO MONITOR.
--- NOTE | 2016-11-03 23:00 | NUR ---
APPLIED MYCOSTATIN POWDER AND INTERDRY TO LEFT BREAST FOLD. PT REFUSED DRESSING CHANGE TO OTHER AREAS. PT STATES "THEY ARE STILL OK, THEY WERE JUST CHANGED".
--- NOTE | 2016-11-04 02:12 | NUR ---
ASSUMED CARE FROM KAILASH PÉREZ, INITIAL ROUNDS MADE PT AWAKE PLAYING WITH HER PHONE, CLAIMED SHE CAN'T SLEEP COZ SHE'S IN PAIN 7/10 PER ASSESSMENT, V/S STABLE, AAO X4, ON BIPAP, NORCO 1 TAB PO GIVEN PER PRN ORDER, ATTENDED NEEDS WILL CONT TO MONITOR.
[2016-11-04 06:55] VITALS: BP 122/65
--- NOTE | 2016-11-04 07:00 | NUR ---
PT SLEEPING AT THIS TIME. ON BIPAP. NO DISTRESS NOTED. SAFETY MEASURES MAINTAINED. CALL LIGHT WITHIN REACH. WILL ENDORSE CONTINUITY OF CARE TO ONCOMING RN.
--- NOTE | 2016-11-04 07:37 | NUR ---
PT IS A+OX4, PULSES MODERATE AND EQUAL ELDON, BLE EDEMA, RECEIVING HEPARIN SQ, LUNG SOUNDS DIMINISHED, BIPAP AT NIGHT, BOWEL SOUNDS ACTIVE, GENERALIZED WEAKNESS, BEDFAST, REDNESS TO ABD, LEG AND THIGH FOLDS, MULTIPLE WOUNDS, PT REFUSING TO LET NURSE ASSESS WOUNDS, IV IN LFA, SALINE LOCKED, SITE WNL.
--- NOTE | 2016-11-04 09:55 | NUR ---
PT SLEEPING, NO RESPIRATORY DISTRESS NOTED, ASKED NURSE TO COME BACK LATER FOR MORNING MEDS.
[2016-11-04 10:11] VITALS: BP 122/80
--- NOTE | 2016-11-04 12:01 | NUR ---
PT RESTING IN BED, NO RESPIRATORY DISTRESS NOTED, COMPLAINING OF SEVERE PAIN, PERCOCET GIVEN. MORNING MEDS GIVEN.
--- NOTE | 2016-11-04 13:19 | NUR ---
PT RESTING IN BED, NO RESPIRATORY DISTRESS NOTED.
--- NOTE | 2016-11-04 13:39 | NUR ---
PT RESTING IN BED, NO RESPIRATORY DISTRESS NOTED, REFUSING WOUND CARE AND PHYSICAL THERAPY BECAUSE SHE "FEELS TOO WEAK"
--- NOTE | 2016-11-04 14:40 | NUR ---
PT RESTING IN BED, NO RESPIRATORY DISTRESS NOTED.
--- NOTE | 2016-11-04 14:42 | NUR ---
PT NOTES CLEARED BY RN FOR P.T. TX. PATIENT IS ASLEEP ON BIPAP, BUT AROUSABLE (1330). RN PRESENT AT BEDSIDE. PATIENT DECLINING TO PARTICIPATE IN THERAPY D/T PATIENT STATING, "I FEEL WEAK" DESPITE ENCOURAGEMENT GIVEN. PRIMARY PHYSICAL THERAPIST AWARE. PVE
--- NOTE | 2016-11-04 16:02 | NUR ---
PT RESTING IN BED, NO RESPIRATORY DISTRESS NOTED.
--- NOTE | 2016-11-04 16:24 | NUR ---
COMPOSITE ENGINEER AND NURSE REPOSITIONED PT AND CHANGED BED LINENS.
[2016-11-04 16:51] VITALS: BP 120/90
--- NOTE | 2016-11-04 17:48 | NUR ---
PT RESTING IN BED, COMPLAINING OF SEVERE PAIN, PERCOCET GIVEN, NO RESPIRATORY DISTRESS NOTED. PT STATED HER "WOUNDS ARE FINE" AND DO NOT NEED TO BE CHANGED.
--- NOTE | 2016-11-04 19:30 | NUR ---
RECEIVED PATIENT FROM AM KAILASH-ISRAEL. PATIENT QUIETLY RESTING IN BED. NO S/SX OF DISTRESS NOTED. STILL IN CONTACT PRECAUTION. IV SITE TO LFA, PATENT, NO INFILTRATION NOTED. PATIENT DENIES ANY PAIN AT THIS TIME. CALL LIGHT WITHIN REACH.
[2016-11-04 21:43] VITALS: BP 122/81
--- NOTE | 2016-11-05 01:33 | NUR ---
PATIENT QUIETLY RESTING IN BED AT THIS TIME. BIPAP CURRENTLY ON. NO S/SX OF DISTRESS NOTED. CALL LIGHT WITHIN REACH. REMAINED IN CONTACT PRECAUTION
--- NOTE | 2016-11-05 06:40 | NUR ---
PATIENT QUIETLY RESTING IN BED. ALL SCHEDULED MEDICATIONS ADMINISTERED. REMAINED IN CONTACT PRECAUTIONS. BED IS CURRENTLY DEFLATED, CONTACTED FOR ASSISTANCE WITH BED.
[2016-11-05 06:55] VITALS: BP 122/58
--- NOTE | 2016-11-05 08:00 | NUR ---
"LEAVE ME ALONE; I DONT WANT TO BE BOTHERED IN THE MORNING". NO SOB;BIPAP IN USE; BARIATRIC BED IN USE; IN CONTACT ISOLATION. SL ON THE LFA INTACT; SAFETY AND FALL PRECAUTION REINFORCED. CALL LIGHT WITHIN REACH; WILL CONTINUE TO MONITOR STATUS.
--- NOTE | 2016-11-05 10:36 | NUR ---
PT ASK FOR PERCOCET FOR PAIN 8/10 ON HER BACK AND NECK.
--- NOTE | 2016-11-05 14:00 | NUR ---
PT STILL REFUSING FOR ASSESSMENT OF SKIN AND WOUND CARE. "DONT CHECK MY SKIN".
--- NOTE | 2016-11-05 18:39 | NUR ---
1600-PT IS SLEEPING; BIPAP ON 1645-PT ASSISTED TO USE BEDPAN. VERBALIZED FEELING HUNGRY AND ATE LATE LUNCH. PT TOOK OFF HER BIPAP AND RESP IS EASY AT RM AIR 1825-NOT IN ANY DISTRESS; NO NEW ACUTE CHANGES; WILL CONTINUE TO MONITOR STATUS
--- NOTE | 2016-11-05 19:20 | NUR ---
PT AWAKE AND ALERT. VERBAL WITH CLEAR SPEECH. NO S/S OF RESPIRATORY DISTRESS NOTED ON ROOM AIR. LUNGS DIMINISHED. ABD ROUND AND SOFT. BOWEL SOUNDS ACTIVE. SKIN WARM AND DRY. IV SALINE LOCK TO LEFT FA PATENT AND INTACT. NO S/S OF INFECTION NOTED. NOTED WITH NONPITTING EDEMA TO BLE. PULSES PALPABLE. NO S/S OF DISTRESS NOTED AT THIS TIME. CALL LIGHT WITHIN REACH. WILL CONTINUE TO MONITOR.
--- NOTE | 2016-11-05 22:10 | NUR ---
PT RECEIVED ALL ROUTINE PO MEDICATIONS AND SWALLOWED WITHOUT DIFFICULTY. REFUSED SKIN ASSESSMENTS, TREATMENTS, AND PERICARE AT THIS TIME. REPOSITIONED FOR COMFORT. WILL CONTINUE TO MONITOR.
--- NOTE | 2016-11-06 01:08 | NUR ---
PT CURRENTLY AWAKE WATCHING TV. VERBAL WITH CLEAR SPEECH. NO S/S OF DISTRESS OR DISCOMFORT NOTED. BREATHING EQUAL AND UNLABORED. NO S/S OF RESPIRATORY DISTRESS NOTED ON ROOM AIR. CALL LIGHT WITHIN REACH. WILL CONTINUE TO MONITOR.
[2016-11-06 05:09] VITALS: BP 120/64
--- NOTE | 2016-11-06 06:04 | NUR ---
PT AWAKE AND VERBAL WITH CLEAR SPEECH. NO S/S OF RESPIRATORY DISTRESS NOTED. PT C/O 8/10 BACK PAIN. PRN NORCO 7.5 MG PO GIVEN. PT ALSO REQUEST FOR COUGH MEDICINE; NOTED WITH DRY COUGH. PRN ROBITUSSIN 5 ML PO GIVEN. NO S/S OF DISTRESS NOTED. VOIDED CONTINENT X2 IN BED SANTANA. CALL LIGHT WITHIN REACH. WILL CONTINUE TO MONITOR.
--- NOTE | 2016-11-06 07:29 | NUR ---
PT RECEIVED DURING CHANGE OF SHIFT, A/OX4, NO TELE, DENIES CHEST PAIN, PULSES PRESENT, EDEMA NOTED BLE, LUNGS DIM ELDON, DENIES SOB, BREATHING EVEN AND UNLABORED, BOWEL SOUNDS ACTIVE, LBM 11/03/16, UTILIZES BEDPAN TO URINATE, INCONTINENT OF URINE AT TIMES, GENERALIZED WEAKNESS, ELDON THIGH WOUNDS, ELDON BREAST/BUTTOCKS/AXILLARY AND ABD FOLD REDNESS, DENIES PAIN AT THIS TIME, IV TO LFA SALINE LOCKED, IV WNL, CALL LIGHT WITHIN REACH, CALM AND COOPERATIVE AT THIS TIME, WILL CONTINUE TO MONITOR.
--- NOTE | 2016-11-06 09:02 | NUR ---
PT AROUSED FROM SLEEP, DENIES SOB, DENIES PAIN, BIPAP IN USE, REFUSED LASIX AND WELLBUTRIN, CALL LIGHT WITHIN REACH, WILL CONTINUE TO MONITOR.
[2016-11-06 09:35] VITALS: BP 116/60
[2016-11-06 10:30] VITALS: BP 116/60
--- NOTE | 2016-11-06 10:31 | NUR ---
PT ASLEEP, NO INDICATION OF PAIN, BREATHING EVEN AND UNLABORED, CALL LIGHT WITHIN REACH, WILL CONTINUE TO MONITOR.
--- NOTE | 2016-11-06 11:34 | NUR ---
PT ASLEEP BUT AROUSABLE, DENIES SOB, DENIES PAIN, CALL LIGHT WITHIN REACH, WILL CONTINUE TO MONITOR.
--- NOTE | 2016-11-06 12:14 | NUR ---
PT ASLEEP BUT AROUSABLE, BREATHING EVEN AND UNLABORED, NO INDICATION OF PAIN, CALL LIGHT WITHIN REACH, WILL CONTINUE TO MONITOR.
--- NOTE | 2016-11-06 13:23 | NUR ---
PT ASLEEP BUT AROUSABLE, DENIES SOB, DENIES PAIN, LUNCH TRAY AT BEDSIDE, WILL CONTINUE TO MONITOR.
--- NOTE | 2016-11-06 14:08 | NUR ---
PT DENIES SOB, C/O SHOULDER/BACK PAIN, MEDICATED PER EMAR, CALL LIGHT WITHIN REACH, WILL CONTINUE TO MONITOR.
--- NOTE | 2016-11-06 15:06 | NUR ---
PT ASLEEP, NO INDICATION OF PAIN, BREATHING EVEN AND UNLABORED, CALL LIGHT WITHIN REACH, WILL CONTINUE TO MONITOR.
--- NOTE | 2016-11-06 16:09 | NUR ---
PT ASLEEP BUT AROUSABLE, DENIES SOB, DENIES PAIN, BS 129 NO COVERAGE NEEDED, CALL LIGHT WITHIN REACH, WILL CONTINUE TO MONITOR.
--- NOTE | 2016-11-06 17:18 | NUR ---
PT DENIES SOB, DENIES PAIN, CALL LIGHT WITHIN REACH, WILL CONTINUE TO MONITOR.
[2016-11-06 17:45] VITALS: BP 128/62
--- NOTE | 2016-11-06 18:20 | NUR ---
PT DENIES SOB, DENIES PAIN, DINNER TRAY AT BEDSIDE, CALL LIGHT WITHIN REACH, WILL ENDORSE PT TO NEXT SHIFT.
--- NOTE | 2016-11-06 20:04 | NUR ---
REC'D PT FROM DAY NURSE SULEMA. AAOX4. LAYING IN BED COMFORTABLY. DENIES PAIN AT THIS TIME. NO TELE, MED-SURG PT. PULSES ARE PRESENT. LUNGS DIM BILA. NO SOB. BREATH SOUNDS ARE EVEN AND UNLABORED. ABD SOFT AND ROUND. PT UTILIZES BEDPAIN TO URINATE. INCONTINENT OF URINE. GENERALIZED WEAKNESS. BREAST, BUTTOCKS, AXILLARY, ELDON THIGH WOUNDS AND ABD FOLD REDNESS. IV TO LFA SALINE LOCKED. CALL LIGHT WITHIN REACH. WILL PROCEED TO THE PLAN OF CARE.
--- NOTE | 2016-11-06 21:53 | NUR ---
ROUNDS MADE. GIVEN PT SCHEDULE MEDS. INSISTED PT IF NEEDED TO BE CLEANED. PT REFUSED. WILL CONT TO MONITOR.
[2016-11-06 22:45] VITALS: BP 130/74
--- NOTE | 2016-11-07 03:32 | NUR ---
Pt IV INFILTRATED. Pt REFUSED TO HAVE ANOTHER IV LINE PUT IN AT THIS TIME. Pt C/O OF PAIN. WILL MEDICATE PER EMAR.
--- NOTE | 2016-11-07 05:15 | NUR ---
RESTARTED IV SITE ON L WRIST 22G INTACT AND PATENT.
[2016-11-07 05:39] VITALS: BP 138/65
--- NOTE | 2016-11-07 05:51 | NUR ---
PT REFUSES TO HAVE HER WOUND PICTURE TAKEN.
--- NOTE | 2016-11-07 06:39 | NUR ---
PT PERIODICALLY SLEPT THROUGHOUT THE SHIFT. NO ACUTE DISTRESS OR SIGNIFICANT CHANGES NOTED. BIPAP NOTED. BREATHING EVEN AND UNLABORED. IV INTACT AND PATENT HEP LOCKED. WILL ENDORSE ALL CONTINUITY CARE TO ONCOMING NURSE.
--- NOTE | 2016-11-07 07:30 | NUR ---
A/A/OX3. OBESITY. CONTACT ISOLATION IN PLACE. DENIED PAIN NOW. ON BIPAP NOW. O2 SAT 99%, RT PROTOCOL. VOID VIA BED SANTANA. URINE INCONT AT TIMES. IVHL'D TO L WRIST. TOLERATED CCHO DIET. PATIENT REFUSED WOUND CARE NOW. CALL LIGHT IN REACH.
[2016-11-07 09:05] VITALS: BP 132/76
--- NOTE | 2016-11-07 09:50 | NUR ---
PATIENT WAS SLEEPING WITH BI-PAP.
--- NOTE | 2016-11-07 11:15 | NUR ---
PATIENT AWAKED BY PHYSICAL THERAPISTS. PATIENT REFUSED PHYSICAL THERATY NOW. C/O BODY PAIN ON 07/20; PATIENT REQUESTED PAIN MEDS, BUT REFUSED NORCO 7.5/325. PERCOCET 5/325 PO GIVEN. CONTINUE MONITOR.
--- NOTE | 2016-11-07 15:46 | NUR ---
PHYSICAL THERAPY DAILY NOTES CO-SIGN All documentation done by the Reservation Manager for 11/07/16 has been reviewed. I agree with the documentation. Reviewed/Co-Signed by: Valery Sousa PT Documentation Done by:SADIA BRISCOE BOTTLE HOUSE CLEANERS SUPERVISOR POC REVIEWED W/ BOTTLE HOUSE CLEANERS SUPERVISOR; PROGRESS BETH; PSYCHOSOCIAL ISSUE.
--- NOTE | 2016-11-07 15:50 | NUR ---
C/O IVHL TO L WRIST PAINFUL. H/L D/C'D. NEW IV INSERTION X3, UNSUCCESSFUL. NO IV ACCESS NOW. DR. BELL NOTIFIED.
--- NOTE | 2016-11-07 18:30 | NUR ---
AWAKE. REMOVED BI-PAP. FINISHED 100% DINNER. TOLERATED WELL. NO C/O PAIN. ENDORSED CARE TO NOC NURSE.
--- NOTE | 2016-11-07 20:00 | NUR ---
RECEIVED PT IN BED AWAKE ALERT AND ORIENTED. PULSES PALPABLE, NON PITTING EDEMA NOTED. LUNGS CLEAR WITH DIMINISHED BASES. BOWEL SOUNDS PRESENT. GENERALIZED WEAKNESS. PT USES BEDPAN BUT HAS EPISODES OF INCONTINENCE.NO PAIN NOTED AT THIS TIME. NO IV ACCESS, DR CASTILLO. ASSISTED INDUSTRIAL TRACTOR DRIVER IN BATHING PATIENT. ALL WOUNDS CLEANED , DRIED. DRESSINGS AND INTERDRY APPLIED. SEE SOIL SCIENTIST FOR FURTHER DETAILS. INSTRUCTED PT TO USE CALL LIGHT IF NEEDS ASSISTANCE WITH ANYTHING. CALL LIGHT IN REACH. WILL MONITOR.
--- NOTE | 2016-11-07 21:15 | NUR ---
PATIENT C/O PAIN AND RECEIVED PERCOCET AT THIS TIME. WILL MONITOR PT.
[2016-11-07 22:02] VITALS: BP 139/70
--- NOTE | 2016-11-07 22:30 | NUR ---
PT RESTING COMFORTABLY IN BED AT THIS TIME. BIPAP IN PLACE, NO DISTRESS NOTED. WILL MONITOR.
--- NOTE | 2016-11-08 00:25 | NUR ---
PT SLEEPING AT THIS TIME WITH NO DISTRESS NOTED. RESPIRATIONS EVEN AND UNLABORED. BIPAP IN PLACE. WILL MONITOR. CALL LIGHT IN REACH.
--- NOTE | 2016-11-08 02:55 | NUR ---
PT C/O PAIN AND RECEIVED PERCOCET ORDERED. WILL MONITOR PT, CALL LIGHT IN REACH.
[2016-11-08 06:22] VITALS: BP 139/62
--- NOTE | 2016-11-08 06:34 | NUR ---
PT CONTINUES TO REST IN BED AT THIS TIME, NO DISTRESS NOTED.RESPIRATIONS EVEN AND UNLABORED. BIPAP IN PLACE. HEPARIN SQ GIVEN , PT CONTINUES TO REST WITH NO COMPLAINTS. PT STABLE, CALL LIGHT REMAINS IN REACH. WILL MONITOR.
--- NOTE | 2016-11-08 07:20 | NUR ---
RECEIVED PT. IN BED A/A/O X3. NO SOB, NO N/V NOTED. DENIES ANY PAIN AT THIS TIME. PT. IS ON CONTACT ISOLATION. PT. HAS NO IV ACCESS. BED IN LOW POS., CALL LIGHT WITHIN REACH. SIDE RAILS UP X3.
--- NOTE | 2016-11-08 08:22 | NUR ---
DR. HOPKINS, THE RESIDENTS, CHARGE NURSE, AND ATTENDING NURSE AT BEDSIDE. CAREPLAN DISCUSSED WITH PT. ALL QUESTIONS ANSWERED.
[2016-11-08 10:00] VITALS: BP 120/64
[2016-11-08 17:17] VITALS: BP 122/80
--- NOTE | 2016-11-08 18:20 | NUR ---
C/O FEELING NAUSEATED; ZOFRAN 4MG PO GIVEN.
--- NOTE | 2016-11-08 19:00 | NUR ---
REMAINS IN STABLE CONDITION AT THIS TIME. NO ACUTE DISTRESS NOTED. PT. IS NO LONGER ON CONTACT ISOLATION (HAS BEEN CLEARED BY INFECTION CONTROL NURSE).
--- NOTE | 2016-11-08 20:09 | NUR ---
SHIFT REASSESSMENT DONE.PATIENT ALERT AND ORIENTED.IN GOOD SPIRIT,SMILING,MAKE NEEDS KNOWN.NO ISOLATION ANYMORE PER CHETAN.MEDSURG PATIENT.SAYS SHE BE GOING HOME WHEN BED IS DELIVERED AT HOME.IS.RT PRTOTOCOL,BREATHING EASY.GEN WEAKNESS.LACTULOSE SCHEDULED TONIGHT WILL GIVE,SAYS NO BM X 5 DAYS.SKIN PROBLEM,NOTED.HEP SQ Q 8 HOURS.WILL GIVE PAIN PILL WHEN DUE,NO IV LINE.CALL LIGHT IN REACH.
[2016-11-08 22:01] VITALS: BP 120/80
--- NOTE | 2016-11-08 23:39 | NUR ---
PATIENT CHECKED AT INTERVALS FOR NEEDS AND SAFETY.QUIET ENVIRONMENT PROVIDED.
--- NOTE | 2016-11-09 00:15 | NUR ---
PATIENT PERCOCET GIVEN 1/2 HOUR EARLY,UP AT THIS TIME,BRUSHING HER TEETH,[employer] ATTENDING ASSIST ADLS.CALL LIGHT IN REACH.
--- NOTE | 2016-11-09 06:05 | NUR ---
PATIENT WANTING HER PERCOCET,GIVEN 15 MINUTES EARLY,STILL HAS BIPAP AT THIS TIME,WILL DC IT WHEN FULLY AWAKE.I AND O MEASURED.CONDITION STABLE,WILL BE DISCHARGE SOON WHEN BED IS READY AT HOME.WILL ENDORSE TO NEXT SHIFT.CALL LIGHT IN REACH.
[2016-11-09 06:07] VITALS: BP 140/88
--- NOTE | 2016-11-09 07:26 | NUR ---
PT RECEIVED DURING CHANGE OF SHIFT, ASLEEP BUT AROUSABLE, NO TELE, PULSES PRESENT, EDEMA NOTED BLE, LUNGS DIM IN BASES, ON BIPAP, BREATHING EVEN AND UNLABORED, BOWEL SOUNDS ACTIVE, UTILIZES BEDPAN, INCONTINENT OF URINE AT TIMES, GENERALIZED WEAKNESS, REDNESS TO ELDON AXILLARY/ELDON THIGHS/ELDON BREAST, BUTTOCKS/ABD FOLDS, NO INDICATION OF PAIN, NO IV LINE, CALL LIGHT WITHIN REACH, WILL CONTINUE TO MONITOR.
[2016-11-09 08:25] VITALS: BP 138/70
--- NOTE | 2016-11-09 08:37 | NUR ---
DR. GREENE AND RESIDENTS MAKING ROUNDS, PLAN OF CARE DISCUSSED, DELIVERY OF BED AND THE COMPONENTS OF THE BED EXPLAINED.
--- NOTE | 2016-11-09 08:41 | NUR ---
PT DENIES SOB, DENIES PAIN, REFUSED LASIX AND WELLBUTRIN, CALL LIGHT WITHIN REACH, WILL CONTINUE TO MONITOR.
--- NOTE | 2016-11-09 09:04 | NUR ---
PT ASLEEP, NO INDICATION OF PAIN, BIPAP IN USE, BREATHING EVEN AND UNLABORED, CALL LIGHT WITHIN REACH, WILL CONTINUE TO MONITOR.
--- NOTE | 2016-11-09 10:02 | NUR ---
PT ASLEEP, NO INDICATION OF PAIN, BREATHING EVEN AND UNLABORED, CALL LIGHT WITHIN REACH, WILL CONTINUE TO MONITOR.
--- NOTE | 2016-11-09 11:22 | NUR ---
PT AROUSED FROM SLEEP, DENIES SOB, DENIES PAIN, BS 164 WILL COVER PER EMAR, CALL LIGHT WITHIN REACH, WILL CONTINUE TO MONITOR.
--- NOTE | 2016-11-09 12:27 | NUR ---
PT ASLEEP BUT AROUSABLE, NO INDICATION OF PAIN, BREATHING EVEN AND UNLABORED, CALL LIGHT WITHIN REACH, WILL CONTINUE TO MONITOR.
--- NOTE | 2016-11-09 13:14 | NUR ---
PT AROUSED FROM SLEEP, DENIES SOB, DENIES PAIN, LUNCH TRAY AT BEDSIDE, CALL LIGHT WITHIN REACH, WILL CONTINUE TO MONITOR.
--- NOTE | 2016-11-09 14:21 | NUR ---
PT DENIES SOB, C/O SHOULDER PAIN 10/20, C/O NAUSEA, MEDICATED PER EMAR, OKAY TO GIVE PERCOCET PER DR. VELA, CALL LIGHT WITHIN REACH, WILL CONTINUE TO MONITOR.
--- NOTE | 2016-11-09 15:04 | NUR ---
PT DENIES SOB, DENIES PAIN, DENIES N/V, CALL LIGHT WITHIN REACH, EATING LUNCH, WILL CONTINUE TO MONITOR.
--- NOTE | 2016-11-09 16:48 | NUR ---
PT DENIE SOB, DENIES PAIN, ON PERSONAL PHONE, CALL LIGHT WITHIN REACH, WILL CONTINUE TO MONITOR.
[2016-11-09 17:15] VITALS: BP 132/74
--- NOTE | 2016-11-09 17:25 | NUR ---
PT DENIES SOB, DENIES PAIN, BS 188 COVERED PER RISS, CALL LIGHT WITHIN REACH, WILL CONTINUE TO MONITOR.
--- NOTE | 2016-11-09 18:09 | NUR ---
PT DENIES SOB, DENIES PAIN, DINNER TRAY AT BEDSIDE, CALL LIGHT WITHIN REACH, WILL ENDORSE PT TO NEXT SHIFT.
--- NOTE | 2016-11-09 18:28 | NUR ---
PT NOTES 0802 Attempted PT tx, but patient just started eating her lunch. Patient states that she was very nauseated and now feeling a little better to eat. Asked to return in 30 min, but patient states that she needs more time than that to eata and would work with us tomorrow. Patient educated on benefits of mobility and consequences of immobility, but cont to refuse. Will follow up at more merlene time. Nursing aware.
--- NOTE | 2016-11-09 19:30 | NUR ---
RECEIVED PATIENT FROM THERESE SANTIZO. ALL SAFETY MEASURES IN PLACE. CALL LIGHT WITHIN REACH.
--- NOTE | 2016-11-09 19:49 | NUR ---
PER ASHLEY MCKEON, PATIENT HAD SMALL BM.
--- NOTE | 2016-11-09 19:58 | NUR ---
ADMINISTERED PAIN MEDICATION FOR PAIN 8/10 GENERALIZED. NO SWALLOWING DIFFICULTY.
[2016-11-09 21:48] VITALS: BP 115/79
--- NOTE | 2016-11-10 00:34 | NUR ---
PATIENT CURRENTLY ON BIPAP. DENIES ANY SOB. NO RESPIRATORY DISTRESS NOTED. CALL LIGHT WITHIN REACH AND ALL NEEDS MET
--- NOTE | 2016-11-10 05:41 | NUR ---
PATIENT REFUSED ATTEMPT FOR IV INSERTION DESPITE EDUCATION GIVEN.
--- NOTE | 2016-11-10 05:59 | NUR ---
ADMINSTERED PAIN MEDICATION FOR GENERALIZED PAIN 09/19 (SEE EMAR).
[2016-11-10 06:15] VITALS: BP 115/68
--- NOTE | 2016-11-10 08:10 | NUR ---
PATIENT ON BIPAP MACHINE, SLEEPING, NO ACUTE DISTRESS NOTED. WILL CONT TO MONITOR AND CHECK BACK.
[2016-11-10 09:15] VITALS: BP 113/68
--- NOTE | 2016-11-10 09:45 | NUR ---
PATIENT WANTS TO KEEP DOOR CLOSED PER SPECIAL WARFARE OPERATOR, DIETITIAN SAW PATIENT, PATIENT NOT COOPERATIVE AT THIS TIME. WILL CHECK BACK.
--- NOTE | 2016-11-10 11:15 | NUR ---
PATIENT MORE AWAKE, REMOVED CPAP MASK. CPAP MACHINE PLACED ON STANDBY. PATIENT A/O AND ABLE TO MAKE NEEDS KNOWN, RESPONSIVE. ABLE TO MOVE ALL EXTREMITIES BUT WITH GENERALIZED WEAKNESS. GENERALIZED EDEMA NOTED TO BUE/BLE. DENIES HAVING DIFFICULTY BREATHING AT THIS TIME. NO IV ACCESS. AM MEDICATIONS GIVEN, REFUSED LASIX AND WELLBUTRIN. REDNESS TO AXILLARY AND BLE SKIN FOLDS NOTED, RN ATTEMPTING TO FURTHER ASSESS WOUNDS AND APPLY WOUND CARE/NYSTATIN, PATIENT REFUSING AT THIS TIME "NOT RIGHT NOW". WILL CONT TO MONITOR.
--- NOTE | 2016-11-10 14:15 | NUR ---
PATIENT HAD LARGE FORMED BM ON BEDPAN, DIANNA/ANAL AREA CLEANSED AND LINENS CHANGED.
[2016-11-10 17:27] VITALS: BP 126/65
--- NOTE | 2016-11-10 17:55 | NUR ---
PATIENT EATING DINNER MEAL, NO ACUTE DISTRESS NOTED AT THIS TIME. PERCOCET GIVEN X1 DURING SHIFT FOR GENERALIZED PAIN, EFFECTIVE. WILL CONT TO MONITOR AND ENDORSE TO NOC NURSE.
--- NOTE | 2016-11-10 19:10 | NUR ---
PT A/O X4. MED-SURG, NO TELE, PT DENIES CHEST PAIN. PULSES PALPABLE, GENERALIZED WEAKNESS, PT ON HEP SC. LUNG SOUNDS DIMINISHED TO ELDON BASES, BREATHING ON RA, PT DENIES SOB. PT VOIDS USING A BEDPAN. GENERALIZED WEAKNESS, ON BARIATRIC BED. REDNESS NOTED TO SKIN FOLDS WITH INTERDRY IN PLACE. DRY WOUND TO RIGHT FLANK NOTED. ADMITS TO 8/10 LOWER BACK PAIN. WILL ADMINISTER PAIN MED ORDERED. PT HAS NO IV ACCESS AT THIS TIME. BED IN LOWEST SETTING, SIDE RAILS UP X2, CALL LIGHT WITHIN REACH. WILL CONTINUE TO MONITOR.
[2016-11-10 21:33] VITALS: BP 145/57
--- NOTE | 2016-11-11 00:43 | NUR ---
PT REQUESTING SLEEPING PILL AT THIS TIME, TRAZADONE ADMINISTERED ORDERED. BIPAP MACHINE IN PLACE. NO DISTRESS OBSERVED. WILL CONTINUE TO MONITOR.
[2016-11-11 06:03] VITALS: BP 114/52
--- NOTE | 2016-11-11 07:25 | NUR ---
PT SLEPT WELL THROUGHOUT THE EVENING, NO SIGNS OF DISTRESS OBSERVED. CARE ENDORSED TO AM NURSE.
--- NOTE | 2016-11-11 07:30 | NUR ---
PATIENT RECEIVED. AT THIS MOMENT THE PATIENT IS RESTING IN BED. NO C/O PAIN AT THIS TIME. PATIENT IS USING BIPAP FOR SLEEP APNEA. NO SIGNS OF DISTRESS ARE NOTED. RESPIRATIONS APPEAR UNLABORED.
--- NOTE | 2016-11-11 09:00 | NUR ---
PATIENT REFUSED TO HAVE VITALS TAKEN BY THE BEAD WORKER SEWING. PT STATES: "I JUST WANT TO SLEEP RIGHT NOW, LEAVE ME ALONE." PATIENT IS AAO, EASILY AROUSABLE. NO SIGNS OF DISTRESS. ALL SAFETY PRECAUTIONS IN PLACE. WILL CONTINUE TO MONITOR.
[2016-11-11 10:40] VITALS: BP 140/66
--- NOTE | 2016-11-11 13:00 | NUR ---
AT THIS TIME THE PATIENT IS RESTING IN BED. NO C/O PAIN, NO SIGNS OF DISTRESS. PATIENT RESPIRATIONS ARE EVEN AND UNLABORED ON ROOM AIR. ALL SAFETY PRECAUTIONS IN PLACE. WILL CONTINUE TO MONITOR.
--- NOTE | 2016-11-11 15:30 | NUR ---
PATIENT IS CURRENTLY WATCHING TV. NO SIGNS OF ACUTE DISTRESS ARE PRESENT. NO INDICATIONS OF PAIN. CALL LIGHT WITHIN REACH. ALL SAFETY PRECAUTIONS IN PLACE.
--- NOTE | 2016-11-11 15:56 | NUR ---
PT NOTES 1255/1455/1530 ATTEMPTED X 3 FOR PT TODAY, BUT CONT TO REFUSED. INITIAL ATTEMPT PATIENT WAS SLEEPING STILL AND ON BIPAP AND WAS IN PAIN. NURSING NOTIFIED AND AWARE TO PREMEDICATE. RETURNED AT LATER TIME AND PATIENT EATING LUNCH STILL, AND UPON RETURING PATIENT WANTING TO USE BEDPAN. PATIENT EDUCATED ON BENEFITS OF MOBILITY AND CONSEQUENCES OF IMMOBILITY, BUT CONT TO REFUSE. NURSING AWARE.
[2016-11-11 17:40] VITALS: BP 115/82
--- NOTE | 2016-11-11 19:15 | NUR ---
REPORT GIVEN TO [employer]PER[employer] NURSE. PATIENT IS CURRENTLY EATING. NO SIGNS OF ACUTE DISTRESS ARE PRESENT AT THE MOMENT. PATIENT RESPIRATIONS ARE EVEN AND UNLABORED ON ROOM AIR. NO INDICATIONS OF PAIN AT THIS TIME.
--- NOTE | 2016-11-11 19:55 | NUR ---
RECD PT SITTING UP IN BED, AAO X4, EATING DINNER. PEDAL PULSES PRESENT WITH GENERALIZED EDEMA, PT ON ROOM AIR, LUNG SOUNDS CLEAR IN UPPER LOBES AND DIMINISHED IN LOWER LOBES, PT ON BEDREST, GENERALIZED WEAKNESS, REDNESS TO ABD FOLDS, NO IV ACCESS. PT IS CALM. BED IN LOW POSITION, CALL LIGHT WITHIN REACH. WILL CONTINUE TO MONITOR.
--- NOTE | 2016-11-12 02:07 | NUR ---
PT AWAKE AND WATCHING TV. NO C/O AT THIS TIME. WILL CONTINUE TO MONITOR.
--- NOTE | 2016-11-12 03:26 | NUR ---
PT C/O INSOMNIA. GAVE PT PRN MEDICATIN DESYREL 50 MG PO. WILL CONTINUE TO MONITOR.
--- NOTE | 2016-11-12 06:26 | NUR ---
PT CURRENTLY SLEEPING IN BED COMFORTABLY. PT C/O PAIN 1X AT NIGHT AND WAS GIVEN PERCOCET 5/325 MG TAB PO. PT C/O INSOMNIA 1X AT NIGHT AND WAS GIVEN DESYREL 50 MG PO. NO DISTRESS NOTED. BED IN LOW POSITION, CALL LIGHT WITHIN REACH.
--- NOTE | 2016-11-12 07:15 | NUR ---
PT SEEN SLEEPING WITH BIPAP ON. PT BREATHING EVEN, UNLABORED. NO IV ACCESS.
[2016-11-12 09:54] VITALS: BP 140/62
[2016-11-12 11:44] VITALS: Ht 177.8 cm; Wt 288.4 kg
--- NOTE | 2016-11-12 12:00 | NUR ---
PT COMPLAIN OF PAIN, PERCOCET GIVEN PER PRN ORDER.
[2016-11-12 17:14] VITALS: BP 120/55
--- NOTE | 2016-11-12 18:47 | NUR ---
PT IS EATING DINNER. PT NO COMPLAIN OF PAIN AT THIS TIME. PT BREATHING ON RA, EVEN, UNLABORED. BIPAP AT BED SIDE STANDBY. NO IV ACCESS.
--- NOTE | 2016-11-12 19:20 | NUR ---
RECEIVED REPORT FROM NAA, ALL CARE ENDORSSED.
--- NOTE | 2016-11-12 19:30 | NUR ---
RECEIVED PT IN BED PLAYING GAME ON HER PHONE. PT IS A/O X4. FOLLOWS COMAND. RESP IS EVEN AND UNLABORED. R AT TIME. AT NIGHT BIPAP, RT PROTOCAL. ENCOURAGE PT TO USE I.C. NO IV ACCESS. PT IS WAITING FOR BIG BOY BED. TO GO HOME. REPOSITION WITH ASSISS. MORBID OBESITY, REDNESS TO ABD FOLD AND UNDER BREASTH. AND ARM HARDWICK. PT REFUSED MYCOSTATIN, INTERDRY APPLIED. SAFETY IN PLACE. CALL LIGHT WITHIN EACH. WILL CONTINUE TO MONITOR.
[2016-11-12 21:27] VITALS: BP 145/71
--- NOTE | 2016-11-13 00:13 | NUR ---
BED SANTANA OFFERED PT HAD OUT 50ML. CLEAN PT AND CHANGE SHEETS. AND REPOSITION.
[2016-11-13 05:51] VITALS: BP 130/55
--- NOTE | 2016-11-13 06:46 | NUR ---
NO S/S OF DISTRESS NOTED, ALL PT NEEDS ATTENDED. BIPAP ON AT TIME. WILL ENDORSSED THE CARE TO DAY NURSE.
--- NOTE | 2016-11-13 07:50 | NUR ---
THE PATIENT WAS SLEEPING BUT AROUSABLE BY VERBAL STIMULUS, ANSWERED THE QUESTIONS AND BACK TO SLEEP. THE PATIENT ORIENTED TO PERSON, PLACE AND TIME. THE PATIENT WAS ON BIPAP AT NIGHT AND PRN. DIMINISHED BREATH SOUNDS AT BASES. DENIED SHORTNESS OF BREATH, OR NAUSEA/VOMITING. NO IV ACCESS NOTED. PATIENT WAS ON SPECIAL BED. SIDE RAILS UP X3. CALL LIGHT WITHIN REACH.
--- NOTE | 2016-11-13 09:30 | NUR ---
THE PATIENT WAS STILL SLEEPING AND DID NOT WANT TO BE BOTHER. WILL MEDICATE THE PATIENT WITH AM SCHEDULED MEDS WHEN THE PATIENT AWAKE.
[2016-11-13 10:23] VITALS: BP 130/55
[2016-11-13 12:17] VITALS: BP 126/67
[2016-11-13 18:09] VITALS: BP 130/62
--- NOTE | 2016-11-13 19:03 | NUR ---
THE PATIENT WAS CLEANSED AND CHANGED. THE PAIENT HAS SLEPT MOST OF THE TIME OF THE SHIFT. [facility]. PATIENT USED BEDPAN TO VOID.
--- NOTE | 2016-11-13 20:00 | NUR ---
PT ALERT/ORIENTED X4. NO C/O PAIN. SEE SKIN ASSESSMENT FOR SKIN INTEGRITY. PT ASSESSED; SEE NSG FLOWSHEET. SAFETY REINFORCED; SEE EDUCAT SHEET. WILL CONTINUE TO MONITOR.
[2016-11-13 21:38] VITALS: BP 154/56
--- NOTE | 2016-11-13 22:01 | NUR ---
PT C/O PAIN TO THE LOWER BACK, RT SHOULDER AND NECK. MEDICATED WITH PERCOCET PER MD PRN ORDER. PT ALSO C/O ANXIETY. MEDICATED WITH XANAX PER MD PRN ORDER. WILL CONTINUE TO MONITOR.
--- NOTE | 2016-11-13 22:30 | NUR ---
INFORMED DR MARINO PT REFUSED THE KENALOG CREAM, MYCOSTATIN POWDER AND MYCOSTATIN OINTMENT. NO NEW ORDERS GIVEN
--- NOTE | 2016-11-14 | NUR ---
PT STATES PAIN LEVEL IS A 5/10 AND IS TOLERABLE. PT C/O LOWER BACK/RT SHOULDER AND NECK PAIN. PT WAS MEDICATED WITH PERCOCET AT 2200 (SEE EMAR) PT ALSO STATES NOT ANXIOUS; PT WAS MEDICATED WITH XANAX AT 2200 (SEE EMAR). WILL CONTINUE TO MONITOR.
--- NOTE | 2016-11-14 01:27 | NUR ---
PT REQUESTING TRAZADONE FOR SLEEP. MEDICATED WITH TRAZADONE PER PT REQUEST. WILL CONTINUE TO MONITOR.
--- NOTE | 2016-11-14 01:30 | NUR ---
PT REQUESTING TO BE PUT ON BIPAP; RT NOTIFIED AND PLACED PT ON BIPAP AT 0130
--- NOTE | 2016-11-14 02:54 | NUR ---
PT SLEEPING. NO DISTRESS NOTED. WILL CONTINUE TO MONITOR.
--- NOTE | 2016-11-14 05:35 | NUR ---
PT SLEPT IN MODERATE INTERVALS THROUGHOUT THE NIGHT. WILL CONTINUE TO MONITOR.
[2016-11-14 05:51] VITALS: BP 111/47
--- NOTE | 2016-11-14 06:48 | NUR ---
PT NOT ALLOWING LINEN TO CHANGED AT THIS TIME.
--- NOTE | 2016-11-14 07:48 | NUR ---
PATIENT SLEEPING, BREATHING UNLABORED AND EVEN, NO DISTRESS NOTED. BI PAP MASK IN PLACE.
--- NOTE | 2016-11-14 10:00 | NUR ---
PATIENT ALERT AND ORIENTED. NO DISTRESS NOTED. PULSES PRESENT AND EQAUL, +1 EDEMA NOTED BLE. LUNG SOUNDS CTA, DIMINSHED AT BASES. LBM 11/11/16, BS ACTIVE. VOIDED VIA BED SANTANA. PATIENT ON BARIATRIC BED. INTERDRY TO ABD AND BREAST SKIN FOLDS, REDNESS TO BILATERAL THIGHS. REPORTS PAIN 8/10, GIVEN PERCOCET. NO IV ACCESS
[2016-11-14 10:57] VITALS: BP 126/72
--- NOTE | 2016-11-14 13:25 | NUR ---
SITTING UP IN BED EATING LUNCH, NO DISTRESS NOTED
--- NOTE | 2016-11-14 13:56 | NUR ---
Follow-up Nutrition Assessment Dx:possible sepsis Labs: No new labs since 10/28; H/H:10.3/32L Meds: Cephulac, Dulcolax PRN, Fioricet, Humulin, Lasix, Pulmicort, Theragran, Tums, Vit C, Zofran, Heparin, Diet: CCHO 45g Weights: admit wt: (09/21)590#, 268kg (10/17) 561#, 255kg(11/12) 635#, 288.4kg Skin: mulitiple pressure ulcers and redness along posterior aspect of BL thighs, healed per RN. Wound to left axilla in skin fold with granular base. Edema: non pitting to BLE Last BM: 11/11 Pt admitted with sepsis d/t BLE Cellulitis with Group C Strep Bacteremia, s/p excisional debridement of stage 3 decubitis sacral ulcer with no abscess, acute on Chronic Respiratory Failure 2/2 Aspiration Pneumonia, and chronic respiratory failure type II from obesity hypoventilation syndrome, BMI:91.2 kg/m2. Per progress note 11/14, no acute events overnight. Pt was seen on BiPAP resting in bed in no acute distress. Pt denies any symptoms overnight except insomnia. Pt was medicated with trazadone. Pt denies any chest pain, shortness of breath, nausea, vomitng, fever. Pt admits to constant right arm pain which has been chronic since her stay which is controlled with pain meds. During vist, observed pt sleeping with Bi-PAP machine on. Per RN, pt has not had a BM since November 11 so she was given Lactulose today. Pt continues with good appetite. Estimated Nutritional Needs unchanged from prior assessment: IBW:68kg Energy: 1700-2040kcal/day (25-30kcal/kg for adult maintenance) Protein: 82-102g/day (1.2-1.5kg for maintenance and skin integrity) Fluid: 1700-2040ml/dy (1ml/kcal) or per doctor Nutrition Diagnosis 1. Morbid obesiry related to sedentary lifestyles as evidenced by BMI:84.8kg/m2 (ongoing) 2. Altered nutrition labs related to elevated blood glucose and A1c:6.7. Intervention 1. Continue with current CCHO 45g diet Monitor/Evaluate Previous goal: PO intake at least 75% est needs (met) Goal: PO intake at least 75% of estimated needs Monitor: PO intake, Labs, GI function F/U 14 in days as low risk:11/28
--- NOTE | 2016-11-14 14:02 | NUR ---
1. Continue with current CCHO 45g diet
--- NOTE | 2016-11-14 14:39 | NUR ---
BED BATH COMPLETED BY [employer], NEW INTERDRY AND POWDER IN PLACE IN [place], ABD FOLDS AND UNDER BREASTS. URINATED IN BED SANTANA
[2016-11-14 17:18] VITALS: BP 138/64
--- NOTE | 2016-11-14 18:57 | NUR ---
REPORTED PAIN EARLIER, GIVEN PAIN MEDICATION. NO DISTRESS OR SOB NOTED. WILL ENDORSE TO NIGHT NURSE
--- NOTE | 2016-11-14 19:25 | NUR ---
PT ALERT AND AWAKE. VERBAL WITH CLEAR SPEECH. NO S/S OF RESPIRATORY DISTRESS NOTED. LUNGS DIMINISHED. ABD SOFT AND ROUND. BOWEL SOUNDS ACTIVE. SKIN WARM AND DRY. NOTED WITH EDEMA TO BLE. PULSES PALPABLE. NO S/S OF DISTRESS OR DISCOMFORT NOTED AT THIS TIME. CALL LIGHT WITHIN REACH. WILL CONTINUE TO MONITOR.
[2016-11-14 21:17] VITALS: BP 110/73
--- NOTE | 2016-11-15 00:15 | NUR ---
PT AWAKE AND ALERT. NO S/S OF RESPIRATORY DISTRESS NOTED. PT C/0 9/10 ABDOMINAL PAIN. PRN PERCOCET 5 MG PO GIVEN. CALL LIGHT WITHIN REACH. WILL CONTINUE TO MONITOR.
--- NOTE | 2016-11-15 03:02 | NUR ---
PT RESTING IN BED WITH EYES CLOSED. BREATHING EQUAL AND UNLABORED. NO S/S OF RESPIRATORY DISTRESS NOTED. ON BIPAP. RESTING COMFORTABLY WITH RELAXED FACIAL FEATURES. CALL LIGHT WITHIN REACH. WILL CONTINUE TO MONITOR.
[2016-11-15 05:33] VITALS: BP 107/75
--- NOTE | 2016-11-15 05:57 | NUR ---
PT SLEPT WELL THROUGH THE NIGHT. EASILY AROUSED WHEN NAME CALLED. REMAINS ON BIPAP. NO S/S OF RESPIRATORY DISTRESS NOTED. NO S/S OF DISTRESS OR DISCOMFORT NOTED AT THIS TIME. CALL LIGHT WITHIN REACH. WILL CONTINUE TO MONITOR.
--- NOTE | 2016-11-15 07:20 | NUR ---
RECEIVED PATIENT REMAIN ASLEEP WITH BIPAP ON; NO DISTRESS NOTED. NO IV ACCESS NOTED. CALL LIGHT AND BEDSIDE TABLE WITHIN REACH. CONT TO MONITOR.
--- NOTE | 2016-11-15 09:00 | NUR ---
PATIENT AWAKE AT THIS TIME REMAIN ON BIPAP, C/O 8/10 BACK/LEGS PAIN PERCOCET 1 TAB PO GIVEN, ALL DUE MEDS GIVEN; PATIENT REFUSED WELLBUTRIN AND WOUND CARE AT THIS TIME. ICE CHIPS GIVEN PER REQUEST; CLOSED DOOR PER PATIENT REQUEST. CALL LIGHT WITHIN REACH.
[2016-11-15 09:57] VITALS: BP 122/70
--- NOTE | 2016-11-15 10:15 | NUR ---
PER SHIVA WILL ARRANGE PATIENT FOR DISCHARGE TOMORROW, BED FRAME WILL BE ARRIVE TO PATIENT HOME TODAY.
--- NOTE | 2016-11-15 11:25 | NUR ---
PATIENT REMAIN SLEEPING BUT AROUSABLE, GIVEN 3 UNITS HUMULIN R SQ FOR BS 200. NEEDS ANTICIPATED.
--- NOTE | 2016-11-15 13:32 | NUR ---
PATIENT REMAIN SLEEPING AROUSABLE, DUE MEDS GIVEN, LUNCH TRAY REMAIN ON TABLE UNTOUCH. CALL LIGHT WITHIN REACH.
--- NOTE | 2016-11-15 16:40 | NUR ---
PATIENT RESTING IN BED ON THE PHONE, PEROCET AND DUE MEDS GIVEN, C/O 08/20 BACK PAIN. NEEDS ANTICIPATED.
[2016-11-15 17:06] VITALS: BP 140/80
--- NOTE | 2016-11-15 18:04 | NUR ---
Patient awake in bed no complaint, due meds given. State pain is relief 3/. Needs anticipated.
--- NOTE | 2016-11-15 19:30 | NUR ---
PATIENT RECEIVED AWAKE, ALERT, AND ORIENTED X 4. NO DISTRESS NOTED. NO IV ACCESS. CALL LIGHT WITHIN REACH. WILL CONTINUE TO MONITOR.
[2016-11-15 20:55] VITALS: BP 110/76
--- NOTE | 2016-11-15 21:33 | NUR ---
EXPLAINED TO PATIENT WE NEEDED TO ZERO THE BED AND WEIGH THE PATIENT. PATIENT REFUSED STATING WE HAVE ALREADY TRIED TO ZERO THE BED TWICE AND IT HASNT WORKED AND THERE IS A PROBLEM WITH THE BED.
--- NOTE | 2016-11-16 05:05 | NUR ---
PATIENT RESTED IN INTERVALS THROUGHOUT THE NIGHT. NO DISTRESS NOTED. MEDICATED FOR PAIN WITH PERCOCET PO X 1 PER DOCTOR'S PRN ORDER. ALL NEEDS MET. SAFETY AND COMFORT MEASURES MAINTAINED. BED IN LOWEST POSITION. CALL LIGHT WITHIN REACH. WILL CONTINUE TO MONITOR AND ENDORSE TO NEXT SHIFT NURSE.
[2016-11-16 05:38] VITALS: BP 120/80
--- NOTE | 2016-11-16 07:45 | NUR ---
RECEIVED PT IN BED. ASSESSED AND DOCUMENTED. DENIES PAIN THIS TIME. PT IS SLEEPING. SAFTEY PRECAUTIONS ON.
[2016-11-16 08:25] VITALS: BP 120/80
--- NOTE | 2016-11-16 08:30 | NUR ---
AND RESIDENTS DID ROUNDS. EXPLAINED THE PLAN OF CARE.
[2016-11-16] MEDS ORDERED: IPRATROPIUM BROM3 M2 HHN ×2 (13:49)
[2016-11-16] MEDS ORDERED: PRAVACHOL20 MG PO (13:50)
[2016-11-16] MEDS ORDERED: TOPROL XL25 MG PO (13:50)
[2016-11-16] MEDS ORDERED: ZESTRIL20 MG PO (13:50)
[2016-11-16 13:51] VITALS: BP 120/80
[2016-11-16] MEDS ORDERED: TRAZODONE50 M1 PO (13:51)
[2016-11-16] MEDS ORDERED: XAN25 PO (13:52)
[2016-11-16] MEDS ORDERED: BG FS (13:52)
[2016-11-16] MEDS ORDERED: POTASSIUM CHLO20 ME1 PO (13:52)
[2016-11-16] MEDS ORDERED: LASIX40 MG PO (13:53)
[2016-11-16] MEDS ORDERED: NOVAPLUS F0.05 MG/Ac (13:56)
[2016-11-16] MEDS ORDERED: FLOVENT DI50 MCG/Ac1 IH (13:57)
[2016-11-16] MEDS ORDERED: LANTUS SOLOS100 U/M1 SQ (13:58)
[2016-11-16] MEDS ORDERED: ARTOS OD (13:59)
[2016-11-16] MEDS ORDERED: VITC PO (13:59)
[2016-11-16] MEDS ORDERED: ECO81 PO (13:59)
[2016-11-16] MEDS ORDERED: THERA TABS1 TAB PO (13:59)
[2016-11-16] MEDS ORDERED: COL100 PO (14:00)
[2016-11-16] MEDS ORDERED: FERG PO (14:00)
[2016-11-16] MEDS ORDERED: CLA10 PO (14:01)
[2016-11-16] MEDS ORDERED: MYCP TOP (14:01)
[2016-11-16] MEDS ORDERED: WELSR PO (14:03)
[2016-11-16] MEDS ORDERED: PULMICORT0.25 MG/2 IH (14:04)
[2016-11-16] MEDS ORDERED: COUGH100 MG/5 M PO (14:04)
[2016-11-16] MEDS ORDERED: LAC30L PO (14:13)
--- NOTE | 2016-11-16 14:33 | NUR ---
Pt SEEN AT 1315, ASLEEP IN BED WITH CPAP INTACT. Pt LUNCH WAS UNTOUCHED, Pt DENIES HUNGER AT THIS TIME. SPTA CLEARED TX WITH RN, ATTEMPTED TO ENGAGE Pt, SHE DECLINED P.T. TX SESSION STATING " WHY WOULD I DO PHYSICAL THERAPY IF I'M GOING HOME IN 2 HOURS". P.T. THEN STATED THAT SHE DID NOT GO TO SLEEP UNTIL 6AM, AND WAS TOO TIRED TO PARTICIPATE. CLINICAL INSTRUCTOR PRESENT DURING Pt ENCOUNTER.
--- NOTE | 2016-11-16 14:50 | NUR ---
DISCHARGE INSTRUCTIONS AND PRESCRIPTIONS GIVEN.PB SIGNED AND SENT WITH PT. PT DENIES PAIN THIS TIME. DISCHARGE PICTURES TAKEN. TRANSPORTATION ARRIVED TO TAKE PT HOME. GETTING PT READY TO GO.
--- NOTE | 2016-11-16 15:20 | NUR ---
PT DISCHARGED TO HOME VIA [facility] ,TRANSPORTATION ARRANGED BY [facility]. PT IS STABLE.
== END 2016-11-16 15:39 | disposition home health service (06) | DRG 853 ==
LOC: ED 04:54 → MU 08:20 → DU 08:20 → MU 09-27 13:41
PROVIDERS: Family Medicine; Internal Medicine; Student in an Organized Health Care Education/Training Program; ADMIT Family Medicine
PROC: 0JB90ZZ Excision of Buttock Subcutaneous Tissue and Fascia, Open Approach (ICD-10-PCS; principal; 2016-09-22)
PROC: 0HBRXZZ Excision of Toe Nail, External Approach (ICD-10-PCS; 2016-10-06)
DX: A40.8 Other streptococcal sepsis (principal); J69.0 Pneumonitis due to inhalation of food and vomit; J96.21 Acute and chronic respiratory failure with hypoxia; L89.313 Pressure ulcer of right buttock, stage 3; E43 Unspecified severe protein-calorie malnutrition; N17.0 Acute kidney failure with tubular necrosis; L03.116 Cellulitis of left lower limb; L03.115 Cellulitis of right lower limb; L03.311 Cellulitis of abdominal wall; N39.0 Urinary tract infection, site not specified; E87.0 Hyperosmolality and hypernatremia; E66.2 Morbid (severe) obesity with alveolar hypoventilation; Z68.45 Body mass index [BMI] 70 or greater, adult; R65.20 Severe sepsis without septic shock; E11.65 Type 2 diabetes mellitus with hyperglycemia; E11.51 Type 2 diabetes mellitus with diabetic peripheral angiopathy without gangrene; B37.3 Candidiasis of vulva and vagina; B35.1 Tinea unguium; L60.2 Onychogryphosis; B95.2 Enterococcus as the cause of diseases classified elsewhere; B96.4 Proteus (mirabilis) (morganii) as the cause of diseases classified elsewhere; M19.90 Unspecified osteoarthritis, unspecified site; G89.29 Other chronic pain; D64.9 Anemia, unspecified; F32.9 Major depressive disorder, single episode, unspecified; Z79.4 Long term (current) use of insulin; Z91.19 Patient's noncompliance with other medical treatment and regimen
CPT/HCPCS: 78598; 82962; 83880; 84439; 85378; 87804; 94150; 97110-GP; 97530-GP; A9540; J0696; J1644; J1815; J1956; J2001; J2270; J2405; J3475; J3490; J7030; J7040; J7620; J7633; Q0092; Q0162

== ENCOUNTER 2016-12-12 20:57 | Observation (INO) | payer MEDICARE, OTHER ==
[~2016-12-12] VITALS: Ht 177.8 cm; Wt 251.0 kg
[~2016-12-12 20:57] MED LIST changes: +COUGH100 MG/5 M PO; +LAC30L PO; +PULMICORT0.25 MG/2 IH; +WELSR PO
[2016-12-12 22:03] LABS: PLATELET COUNT 224 x10^3mcL (130-400); RED CELL DISTRIBUTION WIDTH 14.1 % (11.5-14.5)
[2016-12-12 22:12] LABS: CARBON DIOXIDE 27.2 mmol/L (21-32); CREATININE SERUM 1.2 mg/dL (0.6-1.0); POTASSIUM SERUM 4.5 mmol/L (3.5-5.1)
[2016-12-12 22:17] LABS: BILIRUBIN TOTAL 0.8 mg/dL (0.20-1.00); TOTAL PROTEIN, SERUM 7.5 g/dL (6.4-8.2)
[2016-12-12 22:21] LABS: ALBUMIN 2.9 g/dL (3.4-5.0)
[2016-12-12 22:25] LABS: BAND NEUTROPHIL 7 % (0-10); BASOPHIL 0 % (0-2); MONOCYTE 1 % (0-7); SEGMENTED NEUTROPHILS 89 % (37-75); rbc morphology (normal/abnorm) ABNORMAL (NORMAL)
[2016-12-13 02:53] VITALS: BP 113/54
[2016-12-13 03:05] VITALS: BP 136/76
[2016-12-13 04:24] LABS: MAGNESIUM 1.7 mg/dL (1.8-2.4)
[2016-12-13 04:25] LABS: CHOLESTEROL/HDL RATIO 2.8
[2016-12-13 04:31] LABS: T3 TOTAL 0.81 ng/mL
[2016-12-13 04:40] LABS: FREE T4 1.3 ng/dL (0.76-1.46); FREE THYROXINE INDEX 3.8 ug/dL (1.4-4.5)
[2016-12-13 05:20] VITALS: BP 115/54
[2016-12-13 09:00] VITALS: BP 133/55
[2016-12-13 09:30] LABS: PLATELET COUNT 236 x10^3mcL (130-400); RED CELL DISTRIBUTION WIDTH 14.3 % (11.5-14.5)
[2016-12-13 09:41] LABS: CALCIUM 8.4 mg/dL (8.5-10.1); CARBON DIOXIDE 27.4 mmol/L (21-32); POTASSIUM SERUM 4.5 mmol/L (3.5-5.1)
[2016-12-13 10:48] LABS: BAND NEUTROPHIL 12 % (0-10); BASOPHIL 0 % (0-2); MONOCYTE 2 % (0-7); PLATELET MORPHOLOGY GIANT PLATELET SEEN; SEGMENTED NEUTROPHILS 82 % (37-75); rbc morphology (normal/abnorm) ABNORMAL (NORMAL); tear drop cell (dacryocyte) 1+
[2016-12-13 12:00] VITALS: BP 112/40
[2016-12-13 20:45] VITALS: BP 117/60
[2016-12-14 05:17] VITALS: BP 105/55
[2016-12-14 06:42] LABS: PLATELET COUNT 175 x10^3mcL (130-400); RED CELL DISTRIBUTION WIDTH 14.5 % (11.5-14.5)
[2016-12-14 06:44] LABS: CALCIUM 8.3 mg/dL (8.5-10.1); CARBON DIOXIDE 26.1 mmol/L (21-32); CREATININE SERUM 1.9 mg/dL (0.6-1.0); MAGNESIUM 1.7 mg/dL (1.8-2.4); PHOSPHOROUS 3.7 mg/dL (2.5-4.9); POTASSIUM SERUM 4.4 mmol/L (3.5-5.1)
[2016-12-14 09:28] LABS: BAND NEUTROPHIL 0 % (0-10); BASOPHIL 0 % (0-2); MONOCYTE 1 % (0-7); PLATELET MORPHOLOGY PLATELETS NORMAL; SEGMENTED NEUTROPHILS 96 % (37-75); rbc morphology (normal/abnorm) NORMAL (NORMAL)
[2016-12-14 12:40] VITALS: BP 142/72
[2016-12-14 17:43] VITALS: BP 142/72
[2016-12-14 22:31] VITALS: BP 127/58
[2016-12-15 05:04] VITALS: BP 128/82
[2016-12-15 06:02] LABS: BASOPHIL % 0.1 % (0-2); PLATELET COUNT 155 x10^3mcL (130-400); RED CELL DISTRIBUTION WIDTH 14.3 % (11.5-14.5)
[2016-12-15 06:20] LABS: CALCIUM 8.2 mg/dL (8.5-10.1); CARBON DIOXIDE 25.5 mmol/L (21-32); CREATININE SERUM 1.3 mg/dL (0.6-1.0); MAGNESIUM 1.7 mg/dL (1.8-2.4); PHOSPHOROUS 2.7 mg/dL (2.5-4.9); POTASSIUM SERUM 4.4 mmol/L (3.5-5.1)
[2016-12-15 09:34] VITALS: BP 138/72
[2016-12-15] MEDS ORDERED: LAC PO (12:14)
[2016-12-15] MEDS ORDERED: CLEOCIN HCL300 MG PO (12:18)
[2016-12-15 15:28] VITALS: BP 138/72
[2016-12-15] MEDS ORDERED: WELSR PO (17:11)
[2016-12-15] MEDS ORDERED: LEVEMIR FLEX100 U/M1 SC (17:11)
[2016-12-15] MEDS ORDERED: PRA20 PO (17:11)
[2016-12-15] MEDS ORDERED: [UNRECOGNIZED DRUG - REMARK] MC (17:11)
[2016-12-15] MEDS ORDERED: [UNRECOGNIZED DRUG - SUPPLY] MC (17:11)
[2016-12-15] MEDS ORDERED: ECO81 PO (17:11)
[2016-12-15] MEDS ORDERED: TRA50 PO (17:11)
== END 2016-12-15 20:53 | disposition home health service (06) | DRG 871 ==
LOC: ED 20:57 → CANBEDREQ 23:23 → DU 12-13 00:01
PROVIDERS: Emergency Medicine; ADMIT Family Medicine Sports Medicine
DX: A41.9 Sepsis, unspecified organism (principal); N17.0 Acute kidney failure with tubular necrosis; L03.311 Cellulitis of abdominal wall; L03.317 Cellulitis of buttock; L03.115 Cellulitis of right lower limb; J96.10 Chronic respiratory failure, unspecified whether with hypoxia or hypercapnia; E66.2 Morbid (severe) obesity with alveolar hypoventilation; Z68.45 Body mass index [BMI] 70 or greater, adult; E44.0 Moderate protein-calorie malnutrition; E87.1 Hypo-osmolality and hyponatremia; F33.9 Major depressive disorder, recurrent, unspecified; R65.20 Severe sepsis without septic shock; N76.1 Subacute and chronic vaginitis; H04.123 Dry eye syndrome of bilateral lacrimal glands; B35.1 Tinea unguium; E83.42 Hypomagnesemia; E11.51 Type 2 diabetes mellitus with diabetic peripheral angiopathy without gangrene; L89.152 Pressure ulcer of sacral region, stage 2; K59.00 Constipation, unspecified; M19.90 Unspecified osteoarthritis, unspecified site; R09.82 Postnasal drip; G47.00 Insomnia, unspecified; Z79.4 Long term (current) use of insulin; Z74.01 Bed confinement status; Z91.14 Patient's other noncompliance with medication regimen
CPT/HCPCS: 82962; 83880; 84439; 90658; 90732; 97110-GP; G0378; J1644; J1815; J1956; J2270; J2405; J3475; J3490; J7030; J7040; J7620; J7633; Q0092